=== PATIENT | female | born 1990 | race Caucasian/White ===

== ENCOUNTER 2018-02-16 13:45 | Day surgery (SDC) | payer OTHER ==
[~2018-02-16] VITALS: Ht 154.9 cm; Wt 59.9 kg
[~2018-02-16 13:45] MED LIST: ACHD5005 PO; CEPH500C PO; FERR324T4 PO; HYDR-3714 PO; IBP600T1 PO; NF-XOP-HFA IH; NITR100C3 PO; OMEP-10 PO; PREN-115 PO; ZLP5T PO
[2018-02-16 13:58] VITALS: BP 130/70
[2018-02-16] MEDS ORDERED: MISOPROSTOL 200 MCG (CYTOTEC) TABLET PV ONE (14:15)
[2018-02-16] MEDS ORDERED: LACTATED RINGERS 1,000 ML IV SCH (14:15)
[2018-02-16 14:19] LABS: BASOPHILS % (AUTO) 0 % (0-10); EOSINOPHILS # (AUTO) 0.1 10^3/uL (0.0-0.3); EOSINOPHILS % (AUTO) 1 % (0-10); HEMATOCRIT 42 % (35-52); HEMOGLOBIN 14.8 G/DL (11.5-16.0); LYMPHOCYTES # (AUTO) 1.8 X 10^3 (1.0-4.0); LYMPHOCYTES % (AUTO) 17 % (12-44); MEAN CORPUSCULAR HEMOGLOBIN 32 PG (25-34); MEAN CORPUSCULAR HGB CONC 36 G/DL (32-36); MEAN CORPUSCULAR VOLUME 91 FL (80-99); MONOCYTES # (AUTO) 0.6 X 10^3 (0.0-1.0); MONOCYTES % (AUTO) 6 % (0-12); NEUTROPHILS # (AUTO) 7.9 X 10^3 (1.8-7.8); NEUTROPHILS % (AUTO) 76 % (42-75); PLATELET COUNT 215 10^3/uL (130-400); RED BLOOD COUNT 4.58 10^6/uL (4.35-5.85); RED CELL DISTRIBUTION WIDTH 12.4 % (10.0-14.5); WHITE BLOOD COUNT 10.4 10^3/uL (4.3-11.0)
[2018-02-16] MEDS: morphine INJ 10 MG/ML 1ML (SYR OR VIAL) IVP PRN ×3 (14:23→20:58)
[2018-02-16 14:25] VITALS: BP 111/69
[2018-02-16 14:35] VITALS: BP 103/65
[2018-02-16] MEDS ORDERED: FLU QUADRIvalent (5+ YOA) 2018-2019 (AFLURIA) 0.5 ML IM ONE (15:00)
[2018-02-16] MEDS: cefTRIAXone FOR IV USE 1,000 MG in NS (IVPB) 50 ML IV SCH (15:03)
[2018-02-16 16:15] VITALS: BP 99/53
[2018-02-16] MEDS: ONDANSETRON 4 MG/2 ML (SDV) Z0FRAN IVP PRN ×2 (16:46→20:01)
[2018-02-16] MEDS: LACTATED RINGERS 1,000 ML IV SCH ×2 (16:49→21:01)
[2018-02-16] MEDS ORDERED: MISOPROSTOL 200 MCG (CYTOTEC) TABLET PV NR (18:15)
[2018-02-16 18:30] VITALS: BP 113/73
[2018-02-16] MEDS: KETOROLAC 30 MG/ML VIAL IVP PRN (20:06)
[2018-02-16 22:30] VITALS: BP 116/78
[2018-02-16] MEDS: MISOPROSTOL 100 MCG (CYTOTEC) TAB PV SCH (22:47)
[2018-02-17] VITALS (7 sets, daily range): BP systolic 92–122; BP diastolic 51–80
[2018-02-17] MEDS: LACTATED RINGERS 1,000 ML IV SCH ×4 (01:06→16:14)
[2018-02-17] MEDS: MISOPROSTOL 100 MCG (CYTOTEC) TAB PV SCH ×2 (03:01→14:06)
[2018-02-17] MEDS: KETOROLAC 30 MG/ML VIAL IVP PRN (07:53)
[2018-02-17] MEDS ORDERED: oxyCODONE/APAP 7.5-325 MG (PERCOCET 7.5) TABLET PO PRN (08:15)
--- NOTE | 2018-02-17 09:25 | Progress Note-Standard ---
Standard Progress Note Progress Notes/Assess & Plan Date Seen by a Provider: Feb 17, 2018 Time Seen by a Provider: 09:00 Progress/Assessment & Plan Patient has received several doses of cytotec. Has passed some tissue, but does not appear to be the fetus. she was feeling much better after passing the tissue but now is having severe cramps again. Pain is mainly over the bladder and low back, not unilateral. does not suggest an ectopic. did have decreased UO on admission but that has improved. Has received 1 dose of Rocephin IV (due to previously untreated UTI/ E coli). Rh + 02/16/18 02/17/18 02/17/18 22:30 02:30 05:40 Temp 97.7 98.2 98.3 Pulse 81 66 58 Resp 18 20 20 B/P (MAP) 116/78 (91) 105/61 (76) 99/55 (70) Pulse Ox 100 99 99 O2 Delivery Room Air Room Air Room Air 02/17/18 00:00 Intake Total 2300 ml Output Total 515 ml Balance 1785 ml Laboratory Tests Test 02/16/18 14:08 Range/Units White Blood Count 10.4 4.3-11.0 10^3/uL Red Blood Count 4.58 4.35-5.85 10^6/uL Hemoglobin 14.8 11.5-16.0 G/DL Hematocrit 42 35-52 % Mean Corpuscular Volume 91 80-99 FL Mean Corpuscular Hemoglobin 32 25-34 PG Mean Corpuscular Hemoglobin Concent 36 32-36 G/DL Red Cell Distribution Width 12.4 10.0-14.5 % Platelet Count 215 130-400 10^3/uL Mean Platelet Volume 11.0 H 7.4-10.4 FL Neutrophils (%) (Auto) 76 H 42-75 % Lymphocytes (%) (Auto) 17 12-44 % Monocytes (%) (Auto) 6 0-12 % Eosinophils (%) (Auto) 1 0-10 % Basophils (%) (Auto) 0 0-10 % Neutrophils # (Auto) 7.9 H 1.8-7.8 X 10^3 Lymphocytes # (Auto) 1.8 1.0-4.0 X 10^3 Monocytes # (Auto) 0.6 0.0-1.0 X 10^3 Eosinophils # (Auto) 0.1 0.0-0.3 10^3/uL Basophils # (Auto) 0.0 0.0-0.1 10^3/uL Assessment: 1. Incomplete AB - suspect she has completed, but due to the increase in cramping will obtain an US to check contents and rule out ectopic 2. UTI E Coli - h as received 1 dose of Rocephin. Will continue po pain meds but if evidence of incomplete passage of tissue or ectopic will discuss additional surgical options. She would like to avoid surgery if at all possible. JAE OLSON DO Feb 17, 2018 09:25
[2018-02-17] MEDS: morphine INJ 10 MG/ML 1ML (SYR OR VIAL) IVP PRN (11:32)
[2018-02-17] MEDS ORDERED: IBUPROFEN 600 MG (MOTRIN) TAB PO SCH (13:00)
--- NOTE | 2018-02-17 13:26 | Progress Note-Standard ---
Standard Progress Note Progress Notes/Assess & Plan Date Seen by a Provider: Feb 17, 2018 Time Seen by a Provider: 13:15 Progress/Assessment & Plan Patient has not completely passed tissue. US confirmed that there is still tissue inside. She has continued to have cramping. Have opted for additional oral treatment vs surgical and she now opts for surgical treatmentl Will proceed with suction dilation and curettage. Risks include bleeding, infection, injury to bowel, bladder and ureter. Has a UTI so Rocephin will be continued preoperatively for antibiotic coverage. Also Flagyl 500 mg IV x 1. Consent has been signed. 02/17/18 02/17/18 02/17/18 02:30 05:40 07:43 Temp 98.2 98.3 97.8 Pulse 66 58 72 Resp 20 20 16 B/P (MAP) 105/61 (76) 99/55 (70) 98/66 (77) Pulse Ox 99 99 98 O2 Delivery Room Air Room Air Room Air 02/17/18 00:00 Intake Total 2300 ml Output Total 515 ml Balance 1785 ml JAE OLSON DO Feb 17, 2018 13:26
[2018-02-17] MEDS ORDERED: DEXAMETHASONE 10 MG/ML (DECADRON) 1 ML VIAL ONE (13:29)
[2018-02-17] MEDS ORDERED: ONDANSETRON 4 MG/2 ML (SDV) Z0FRAN ONE (13:29)
[2018-02-17] MEDS ORDERED: proPOfol 200 MG/20 ML (DIPRIVAN) VIAL IV ONE (13:29)
[2018-02-17] MEDS ORDERED: LIDOCAINE PF 2% 2 ML (XYLOCAINE) VIAL ONE ×2 (13:29→13:34)
[2018-02-17] MEDS ORDERED: SEVOFLURANE (ULTANE) 15 ML INHAL SOLN ONE (13:29)
[2018-02-17] MEDS ORDERED: MIDAZOLAM 2 MG/2 ML (VERSED) VIAL ONE (13:30)
[2018-02-17] MEDS ORDERED: fentaNYL INJECTION 100 MCG/2 ML AMP ONE (13:30)
[2018-02-17] MEDS ORDERED: OXYC1TAB16 PO (13:40)
[2018-02-17] MEDS ORDERED: IBUP-1773 PO (13:40)
--- NOTE | 2018-02-17 13:41 | Discharge Inst-Women's Service ---
Discharge Inst-Women's Serv Depart Medication/Instructions New, Converted or Re-Newed RX: RX on Chart Final Diagnosis inevitable miscarriage UTI Consults/Follow Up Additional Follow Up: Yes Activity Activity: Activity as Tolerated Driving Instructions: No Driving for 24 Hours NO SMOKING: NO SMOKING Nothing Inside Vagina: No Douching, No [place], No Tampons Diet Discharge Diet: No Restrictions Symptoms to Report to : Bleeding Excessive, Pain Increased, Fever Over 101 Degrees F, Vaginal Bleeding Increase, Cramps in Feet or Legs For Any Problems or Questions: Contact Your Physician JAE OLSON DO Feb 17, 2018 13:41
[2018-02-17] MEDS ORDERED: metroNIDAZOLE 500MG/100ML IVPB 100 ML IV ONE (13:45)
[2018-02-17] MEDS: cefTRIAXone FOR IV USE 1,000 MG in NS (IVPB) 50 ML IV SCH (13:50)
[2018-02-17] MEDS ORDERED: ROCURONIUM 10 MG/ML 5 ML SYRINGE IV ONE (13:50)
[2018-02-17] MEDS ORDERED: SUCCINYLCHOLINE INJ 100 MG/5 ML SYR ONE (13:50)
[2018-02-17] MEDS ORDERED: metroNIDAZOLE 500MG/100ML IVPB 100 ML ONE (13:56)
[2018-02-17] MEDS ORDERED: diphenhydrAMINE 50 MG/ML INJ (BENADRYL) ONE (13:59)
--- NOTE | 2018-02-17 14:14 | Diagnostic Imaging Report ---
INDICATION: Bleeding and cramping with incomplete TECHNIQUE: Multiple real time canales scale sonographic images were obtained of the pelvis endovaginally. CORRELATION STUDY: None FINDINGS: Uterus 12.0 x 5.8 cm. The fundal aspect of the endometrium appearing unremarkable at 8 mm in thickness. There is an irregular fluid collection at the lower uterine segment and/or most notably at the level of the cervix. There is suggestion of a probable pole this likely reflects a gestational sac. No heart tones are detected. Imaging of the adnexa is fairly limited. What appears to be the right ovary measures approximately 3.2 x 1.9 x 3.7 cm. Left ovary not able to be visualized. IMPRESSION: 1.Findings most consistent with a incomplete with gestational sac and pole at the level of the cervix. No heart tones detected. Findings were relayed by the confidential investigator at time of imaging. Dictated by: Dictated on workstation # [id number]
[2018-02-17] MEDS ORDERED: ONDANSETRON 4 MG/2 ML (SDV) Z0FRAN IVP PRN (14:45)
[2018-02-17] MEDS ORDERED: morphine INJ 10 MG/ML 1ML (SYR OR VIAL) IVP ONE (14:45)
[2018-02-17] MEDS ORDERED: MEPERIDINE (DEMEROL) INJ 50 MG/ML IVP ONE ×2 (14:45→15:15)
--- NOTE | 2018-02-17 15:24 | Anesthesia-General Post-Op ---
General Patient Condition Mental Status/LOC: Same as Preop Cardiovascular: Satisfactory Nausea/Vomiting: Absent Respiratory: Satisfactory Pain: Controlled Complications: Absent Post Op Complications Complications Demerol for shivering ordered in recovery with relief. Follow Up Care/Instructions Patient Instructions None needed. Anesthesia/Patient Condition Patient Condition Patient is doing well, no complaints, stable vital signs, no apparent adverse anesthesia problems. No complications reported per nursing. D/C home per [facility] Criteria: Yes GABRIEL MARTIN CRNA Feb 17, 2018 15:24
[2018-02-17] MEDS ORDERED: CHLORASEPTIC LOZENGE MM ONE ×2 (19:13→20:45)
--- NOTE | 2018-02-18 11:18 | Anesthesia-General Post-Op ---
General Patient Condition Mental Status/LOC: Same as Preop Cardiovascular: Satisfactory Nausea/Vomiting: Absent Respiratory: Satisfactory Pain: Controlled Complications: Absent Post Op Complications Complications None Follow Up Care/Instructions Patient Instructions None needed. Anesthesia/Patient Condition Patient Condition Patient is doing well, no complaints, stable vital signs, no apparent adverse anesthesia problems. No complications reported per nursing. D/C home per [facility] Criteria: Yes MATT PULIDO CRNA Feb 18, 2018 11:18
--- NOTE | 2018-03-04 15:01 | Operative Report ---
Operative Report Date of Procedure/Surgery Feb 17, 2018 Surgeon (s) JAE OLSON DO [employer] Radio Technician (s): NA Post-Operative Diagnosis Incomplete AB Procedure Performed suction dilation and curettage Description of Procedure Anesthesia Type: General Estimated blood loss (mL): 200 Specimen(s) collected/removed products of conception Description of the Procedure With informed consent the patient was taken to the operating room where general anesthesia was found to be adequate. She was prepped and draped in the usual sterile fashion in the dorsal lithotomy position. The bladder was drained of clear yellow urine. The speculum was placed in the vagina and the cervix grasped with a tenaculum. The cervix was still closed with some blood in the vault but not tissue. The cervix was gently dilated and I noted a gush of clear fluid (consistent with what was seen on the US). I then gently dilated the cervix with Hugo dilators. I did a gentle suction curette removing a moderate amount of products of conception and blood clots. I then followed this with a sharp curette until a gritty texture was felt. There was good hemostasis I removed the tenaculum from the cervix and controlled the bleeding with a ring forceps. The patient was awakened and taken to recovery in a stable condition. Sponge and instrument counts were correct times two. Findings of the Procedure Failed conservative treatment with misoprostol. Has not passed tissue and the Follow up US still shows that there is a large fluid filled sac in the cervix and tissue. Allergies and Home Medications Allergies Coded Allergies: No Known Drug Allergies (Unverified , 04/15/13) Home Medications Ferrous Sulfate 324 Mg Tablet., 324 MG PO DAILY, (Reported) Ibuprofen 600 Mg Tablet, 600 MG PO Q6H PRN for PAIN Prescribed by: JAE OLSON on 02/17/18 1340 Levalbuterol Tartrate 15 Gm Aer.w.adap, 15 GM IH QID PRN for SHORTNESS OF BREATH Prescribed by: KEY FRENCH on 04/15/13 1709 Omeprazole 20 Mg Capsule., 20 MG PO DAILY, (Reported) Oxycodone HCl/Acetaminophen 1 Each Tablet, 1 EACH PO Q6HR PRN for PAIN-MODERATE Prescribed by: JAE OLSON on 02/17/18 1340 Vit #108/Iron/Fa 1 Each Tablet, 1 EACH PO DAILY, (Reported) Patient Home Medication List Home Medication List Reviewed: Yes JAE OLSON DO Mar 04, 2018 15:01
== END 2018-02-17 19:55 | disposition home or self-care (01) ==
LOC: SDC 13:45 → MERGE 13:45 → WS 13:45 → UNDOADMIN 13:45 → EDSTATUS 02-17 13:30 → UNDODISIN 02-17 19:55 → SDC 02-17 19:55
PROVIDERS: ATTEND Obstetrics & Gynecology
DX: O03.38 Urinary tract infection following incomplete spontaneous abortion (principal); B96.20 Unspecified Escherichia coli [E. coli] as the cause of diseases classified elsewhere; J45.909 Unspecified asthma, uncomplicated
CPT/HCPCS: 36415; 76817; 85025; 88305

== ENCOUNTER 2018-05-07 12:40 | Outpatient (CLI) | payer MEDICAID ==
[~2018-05-07] VITALS: Ht 154.9 cm; Wt 70.3 kg
[~2018-05-07 12:40] MED LIST changes: +IBUP-1773 PO; +OXYC1TAB16 PO
[2018-05-08] MEDS ORDERED: ACHD5005 PO (15:31)
[2018-05-08] MEDS ORDERED: INUL2TAB8 PO (15:31)
[2018-05-08] MEDS ORDERED: LIDO30CR TP (15:31)
[2018-05-08] MEDS ORDERED: IBUP-844 PO (15:31)
[2018-05-08] MEDS ORDERED: DOCU-143 PO (15:31)
== END 2018-05-07 12:55 | disposition home or self-care (01) ==
LOC: PREOP 12:40
PROVIDERS: ATTEND Obstetrics & Gynecology
DX: Z01.818 Encounter for other preprocedural examination (principal)

== ENCOUNTER 2018-05-08 13:00 | Day surgery (SDC) | payer MEDICAID ==
[~2018-05-08] VITALS: Ht 154.9 cm; Wt 63.5 kg
[~2018-05-08 13:00] MED LIST changes: +LACTATED RINGERS 1,000 ML IV PRN
[2018-05-08 13:15] VITALS: BP 106/79
[2018-05-08] MEDS ORDERED: ceFAZolin INJECTION 1,000 MG in NS (IVPB) 50 ML IV ONE (13:30)
[2018-05-08] MEDS ORDERED: MIDAZOLAM 2 MG/2 ML (VERSED) VIAL IV ONE (13:30)
[2018-05-08] MEDS ORDERED: SCOPOLAMINE 1.5 MG (TRANSDERM-SCOP) PATCH TOP ONE (13:30)
[2018-05-08] MEDS ORDERED: ONDANSETRON 4 MG/2 ML (SDV) Z0FRAN IV ONE (13:30)
[2018-05-08] MEDS ORDERED: metroNIDAZOLE 500MG/100ML IVPB 100 ML IV ONE (13:30)
[2018-05-08] MEDS ORDERED: FAMOTIDINE 20MG/2ML IV (PEPCID) IV ONE (13:30)
[2018-05-08] MEDS ORDERED: proPOfol 200 MG/20 ML (DIPRIVAN) VIAL IV ONE (13:48)
[2018-05-08] MEDS ORDERED: LIDOCAINE PF 2% 5 ML (XYLOCAINE) VIAL ONE (13:48)
[2018-05-08] MEDS ORDERED: fentaNYL INJECTION 100 MCG/2 ML AMP ONE (13:49)
[2018-05-08 13:50] LABS: BASOPHILS % (AUTO) 0 % (0-10); EOSINOPHILS # (AUTO) 0.1 10^3/uL (0.0-0.3); EOSINOPHILS % (AUTO) 1 % (0-10); HEMATOCRIT 42 % (35-52); HEMOGLOBIN 14.6 G/DL (11.5-16.0); LYMPHOCYTES # (AUTO) 1.7 X 10^3 (1.0-4.0); LYMPHOCYTES % (AUTO) 15 % (12-44); MEAN CORPUSCULAR HEMOGLOBIN 32 PG (25-34); MEAN CORPUSCULAR HGB CONC 35 G/DL (32-36); MEAN CORPUSCULAR VOLUME 91 FL (80-99); MEAN PLATELET VOLUME 11.8 FL (7.4-10.4); MONOCYTES # (AUTO) 0.7 X 10^3 (0.0-1.0); MONOCYTES % (AUTO) 7 % (0-12); NEUTROPHILS # (AUTO) 8.8 X 10^3 (1.8-7.8); NEUTROPHILS % (AUTO) 78 % (42-75); PLATELET COUNT 214 10^3/uL (130-400); RED BLOOD COUNT 4.59 10^6/uL (4.35-5.85); RED CELL DISTRIBUTION WIDTH 12.2 % (10.0-14.5); WHITE BLOOD COUNT 11.3 10^3/uL (4.3-11.0)
[2018-05-08] MEDS ORDERED: SEVOFLURANE (ULTANE) 15 ML INHAL SOLN ONE ×3 (13:50→15:05)
[2018-05-08] MEDS ORDERED: DEXAMETHASONE 10 MG/ML (DECADRON) 1 ML VIAL ONE (13:50)
[2018-05-08] MEDS ORDERED: ONDANSETRON 4 MG/2 ML (SDV) Z0FRAN ONE (13:50)
[2018-05-08] MEDS ORDERED: SUCCINYLCHOLINE INJ 100 MG/5 ML SYR ONE (13:50)
[2018-05-08] MEDS ORDERED: KETOROLAC 30 MG/ML VIAL ONE (14:35)
--- NOTE | 2018-05-08 14:45 | Progress Note-Pre Operative ---
Pre-Operative Progress Note H&P Reviewed The H&P was reviewed, patient examined and no changes noted. Date Seen by Provider: May 08, 2018 Time Seen by Provider: 13:45 Date H&P Reviewed: May 08, 2018 Time H&P Reviewed: 13:30 Pre-Operative Diagnosis: missed JAE OLSON DO May 08, 2018 14:45
[2018-05-08] MEDS ORDERED: HYDROcodone/APAP 5 MG/325 MG (LORTAB) TAB PO PRN (15:15)
[2018-05-08] MEDS ORDERED: KETOROLAC 30 MG/ML VIAL IVP PRN (15:15)
--- NOTE | 2018-05-08 15:22 | Operative Report ---
Operative Report Date of Procedure/Surgery May 08, 2018 Surgeon (s) JAE OLSON DO Web Knitter (s): NA Post-Operative Diagnosis Missed anal fissure (acute?) mucoid rectal discharge Procedure Performed Suction dilation and curettage Description of Procedure Anesthesia Type: General Estimated blood loss (mL): minimal Specimen(s) collected/removed products of conception Description of the Procedure With informed consent the patient was taken to the operating room where general anesthesia was found to be adequate. She was prepped and draped in the usual sterile fashion in the dorsal lithotomy position. The bladder was drained of clear yellow urine. The speculum was placed in the vagina and the cervix grasped with a tenaculum. The cervix was still closed with some blood in the vault but not tissue. The cervix was gently dilated and I noted a gush of clear fluid (consistent with what was seen on the US). I then gently dilated the cervix with Hugo dilators. I did a gentle suction curette removing a moderate amount of products of conception and blood clots. I then followed this with a sharp curette until a gritty texture was felt. There was good hemostasis I removed the tenaculum from the cervix and controlled the bleeding with a ring forceps. The patient was awakened and taken to recovery in a stable condition. Sponge and instrument counts were correct times two. At the time of surgical prep, there was an acute fissure at 2 o'clock on the anal opening. There was mucus discharge noted from the anus. There is no history of Crohn's' or other inflammatory bowel disease. I spoke with the after surgery and he states that she had not complained about the fissure nor any change in bowel habits. Will treat the fissure conservatively with pain management (topical anesthetic) fiber, stool softener. Refer to GI if necessary. Findings of the Procedure moderate amounts of products of conception mucoid discharge from anus and acute anal fissure Allergies and Home Medications Allergies Coded Allergies: No Known Drug Allergies (Unverified , 04/15/13) Home Medications Docusate Sodium 100 Mg Capsule, 60 MG PO BID Prescribed by: JAE OLSON on 05/08/18 1531 Hydrocodone Bit/Acetaminophen 1 Tab Tab, 1 TAB PO Q4H PRN for PAIN-MODERATE Prescribed by: JAE OLSON on 05/08/18 1531 Ibuprofen 600 Mg Tablet, 600 MG PO Q6HR Prescribed by: JAE OLSON on 05/08/18 1531 Inulin 2 Gm Tab.chew, 2 GM PO BID Prescribed by: JAE OLSON on 05/08/18 1531 Lidocaine 30 Gm Cream..g., 30 GM TP 5XD PRN for pain Prescribed by: JAE OLSON on 05/08/18 1531 Patient Home Medication List Home Medication List Reviewed: Yes JAE OLSON DO May 08, 2018 15:22
[2018-05-08] MEDS ORDERED: morphine INJ 10 MG/ML 1ML (SYR OR VIAL) IVP ONE (15:30)
[2018-05-08] MEDS ORDERED: PROMETHAZINE INJ 25 MG/ML (PHENERGAN) AMP IVP ONE (15:30)
[2018-05-08] MEDS ORDERED: ONDANSETRON 4 MG/2 ML (SDV) Z0FRAN IVP PRN (15:30)
[2018-05-08] MEDS ORDERED: HYDROmorphone 2 MG/ML VIAL (DILAUDID) IV ONE (15:30)
[2018-05-08] MEDS ORDERED: MEPERIDINE (DEMEROL) INJ 50 MG/ML IVP ONE (15:30)
[2018-05-08] MEDS ORDERED: IBUP-844 PO (15:31)
[2018-05-08] MEDS ORDERED: LIDO30CR TP (15:31)
[2018-05-08] MEDS ORDERED: DOCU-143 PO (15:31)
[2018-05-08] MEDS ORDERED: INUL2TAB8 PO (15:31)
[2018-05-08] MEDS ORDERED: ACHD5005 PO (15:31)
--- NOTE | 2018-05-08 15:34 | Discharge Inst-Women's Service ---
Discharge Inst-Women's Serv Depart Medication/Instructions New, Converted or Re-Newed RX: Other (On chart and transmitted to pharmacy ( some are OTC)) Instructions Sitz baths (for the anal fissure), increase fiber intake, keep stools soft; use topical lidocaine cream for pain expect to have vaginal bleeding for 7-10 days Final Diagnosis missed (miscarriage) anal fissure acute Consults/Follow Up Additional Follow Up: Yes (4 weeks) Activity Activity: Activity as Tolerated Driving Instructions: No Driving for 24 Hours NO SMOKING: NO SMOKING Nothing Inside Vagina: No Douching, No [place], No Tampons Diet Discharge Diet: No Restrictions, Other Diet (high fiber) Symptoms to Report to : Bleeding Excessive, Pain Increased, Fever Over 101 Degrees F, Vaginal Bleeding Increase, Vaginal Discharge Foul For Any Problems or Questions: Contact Your Physician JAE OLSON DO May 08, 2018 15:34
--- NOTE | 2018-05-08 15:34 | Anesthesia-General Post-Op ---
General Patient Condition Mental Status/LOC: Same as Preop Cardiovascular: Satisfactory Nausea/Vomiting: Absent Respiratory: Satisfactory Pain: Controlled Complications: Absent Post Op Complications Complications None Follow Up Care/Instructions Patient Instructions None needed. Anesthesia/Patient Condition Patient Condition Patient is doing well, no complaints, stable vital signs, no apparent adverse anesthesia problems. No complications reported per nursing. RYLIE CARTER CRNA May 08, 2018 15:34
[2018-05-08 16:00] VITALS: BP 114/81
[2018-05-08] MEDS ORDERED: BENZOCAINE/MENTHOL (DERMOPLAST) 56 ML CAN TP PRN (16:00)
[2018-05-08 16:30] VITALS: BP 107/71
[2018-05-08 17:00] VITALS: BP 102/66
[2018-05-09] MEDS ORDERED: IBUPROFEN 600 MG (MOTRIN) TAB PO SCH (18:00)
== END 2018-05-08 17:00 | disposition home or self-care (01) ==
LOC: SDC 13:00
PROVIDERS: ATTEND Obstetrics & Gynecology
DX: O02.1 Missed abortion (principal); K60.2 Anal fissure, unspecified; J45.909 Unspecified asthma, uncomplicated; K21.9 Gastro-esophageal reflux disease without esophagitis; Z79.899 Other long term (current) drug therapy
CPT/HCPCS: 36415; 85025; 86850; 86900; 86901; 87081; 88305; 94664

== ENCOUNTER 2018-08-05 18:24 | Emergency (ER) | payer MEDICAID ==
[~2018-08-05] VITALS: Ht 154.9 cm; Wt 61.2 kg
[~2018-08-05 18:24] MED LIST changes: +DOCU-143 PO; +IBUP-844 PO; +INUL2TAB8 PO; -LACTATED RINGERS 1,000 ML IV PRN; +LIDO30CR TP
[2018-08-05] MEDS ORDERED: NS IV 1000 ML 1,000 ML IV STA (18:38)
--- NOTE | 2018-08-05 18:44 | ED GI ---
General Chief Complaint: Abdominal/GI Problems Stated Complaint: WEAK,LIGHT HEADED, ST PAIN, BLOODY STOOLS History of Present Illness Date Seen by Provider: Aug 05, 2018 Time Seen by Provider: 18:29 This is a 28-year-old female who complains of waxing and waning periumbilical abdominal pain for the last 5 days. She says that multiple people at her workplace have been suffering from "a stomach bug" and she has had some nausea and significantly increased frequency of stools over baseline, with stools being soft but not strictly watery. She has had some blood mixed in with the stool in the last couple of days with some mucoid discharge as well. No travel, antibiotics or hospitalizations in the last 2 months, no exposure to farm animals, works in an office setting. No fever or chills. Has taken an occasional dose of Pepto-Bismol without significant relief. History of 2 C- sections. Last menstrual period one to 2 weeks ago. Normal urination, no vaginal bleeding or discharge. Allergies and Home Medications Allergies Coded Allergies: No Known Drug Allergies (Unverified , 08/05/18) Home Medications Docusate Sodium 100 Mg Capsule, 60 MG PO BID Prescribed by: JAE OLSON on 05/08/18 1531 Hydrocodone Bit/Acetaminophen 1 Tab Tab, 1 TAB PO Q4H PRN for PAIN-MODERATE Prescribed by: JAE OLSON on 05/08/18 1531 Ibuprofen 600 Mg Tablet, 600 MG PO Q6HR Prescribed by: JAE OLSON on 05/08/18 1531 Inulin 2 Gm Tab.chew, 2 GM PO BID Prescribed by: JAE OLSON on 05/08/18 1531 Lidocaine 30 Gm Cream..g., 30 GM TP 5XD PRN for pain Prescribed by: JAE OLSON on 05/08/18 153 Nitrofurantoin Macrocrystal 100 Mg Capsule, 100 MG PO BID Prescribed by: RAKAN FRENCH on 08/05/182121 Ondansetron 8 Mg Tab.rapdis, 8 MG PO TID PRN for NAUSEA/VOMITING Prescribed by: RAKAN FRENCH on 08/05/182121 Patient Home Medication List Home Medication List Reviewed: Yes Review of Systems Review of Systems Constitutional: no symptoms reported EENTM: No Symptoms Reported Respiratory: No Symptoms Reported Cardiovascular: No Symptoms Reported Gastrointestinal: See HPI Genitourinary: No Symptoms Reported Musculoskeletal: no symptoms reported Skin: no symptoms reported Psychiatric/Neurological: No Symptoms Reported Endocrine: No Symptoms Reported Hematologic/Lymphatic: No Symptoms Reported Past Mrcgaek-Opneey-Mfnzum Hx Patient Social History Alcohol Beverage of Choice: Wine Recent Foreign Travel: No Contact w/Someone Who Travel: No Recent Hopitalizations: No Immunizations Up To Date Tetanus Booster (TDap): Unknown PED Vaccines UTD: Yes Seasonal Allergies Seasonal Allergies: Yes Past Medical History Surgeries: Yes (C-SECTIONS X2) Respiratory: Yes Asthma Currently Using CPAP: No Currently Using BIPAP: No Cardiac: No Neurological: Yes (SINCE AGE 17) Headaches /Migraines Reproductive Disorders: No Female Reproductive Disorders: Denies Sexually Transmitted Disease: No HIV/AIDS: No Genitourinary: Yes Kidney Infection Gastrointestinal: No Gastroesophageal Reflux Musculoskeletal: No Endocrine: No HEENT: No (PERFORATED EAR DRUM A KID) Loss of Vision: Denies Hearing Impairment: Denies Cancer: No Psychosocial: Yes (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) PTSD Integumentary: No Blood Disorders: No (HX OF ANEMIA) Adverse Reaction/Blood Tranf: No Family Medical History Alcoholism 03 MOTHER 19 MOTHER Alcoholism 03 MOTHER 19 MOTHER Arthritis 19 MOTHER (RA) FH: depression 19 MOTHER FH: liver disease 19 MOTHER Family history: Arthritis 03 MOTHER Family history: Asthma 03 MOTHER Family history: Hypertension 03 MOTHER Family history: Osteoporosis 03 MOTHER Headache 03 MOTHER Hearing loss 03 MOTHER History of - anemia 03 MOTHER Hypercholesterolemia 03 MOTHER Osteoporosis 19 MOTHER Psychotic disorder 03 MOTHER, Onset:40's - 50 No Family History of: Abdominal aortic aneurysm [place]'s disease Aphasia Cancer Cancer of colon Cataract Chest pain Congenital heart disease Congestive heart failure Cystic fibrosis Dementia Dysphagia Family history: Allergy Family history: Alzheimer's disease Family history: Breast disease Family history: Cardiovascular disease Family history: Coronary thrombosis Family history: Diabetes mellitus Family history: Gastrointestinal disease Family history: Glaucoma Family history: Thyroid disorder Heart disease Hereditary disease History of - disorder History of - respiratory disease History of drug abuse Human immunodeficiency virus (HIV) seropositivity Infertile Kidney disease Malignant neoplasm of lung Myocardial infarction Parkinson's disease Prostate cancer Seizure disorder Stroke Tuberculosis Visual impairment No Pertinent Family Hx Physical Exam Vital Signs Vital Signs - First Documented 08/05/18 18:33 Temp 98.3 Pulse 116 Resp 18 B/P (MAP) 135/87 (103) Pulse Ox 98 Capillary Refill : Height/Weight/BMI Height: 5'1.00" Weight: 140lbs. 0.0oz. [id number]; 26.5 BMI Method: General Appearance: no apparent distress (no visible discomfort) HEENT: other (no conjunctival injection or scleral icterus, moist mucous membranes) Respiratory: lungs clear Cardiovascular: normal peripheral pulses, regular rate, rhythm Gastrointestinal: soft, other (normal bowel sounds, soft, nondistended, minimal diffuse tenderness without rebound rigidity or guarding) Extremities: no pedal edema Neurologic/Psychiatric: alert, normal mood/affect, oriented x 3 Skin: warm/dry Progress/Results/Core Measures Results/Orders Lab Results Laboratory Tests Test 08/05/18 18:39 08/05/18 18:50 Range/Units Urine Color YELLOW Urine Clarity CLOUDY Urine pH 6.5 5-9 Urine Specific [place] 1.010 L 1.016-1.022 Urine Protein TRACE NEGATIVE Urine Glucose (UA) NEGATIVE NEGATIVE Urine Ketones NEGATIVE NEGATIVE Urine Nitrite POSITIVE H NEGATIVE Urine Bilirubin NEGATIVE NEGATIVE Urine Urobilinogen 0.2 NORMAL MG/DL Urine Leukocyte Esterase 2+ H NEGATIVE Urine RBC (Auto) 2+ H NEGATIVE Urine RBC 2+5 /HPF Urine WBC 25-50 H /HPF Urine Squamous Epithelial Cells 2-5 /HPF Urine Crystals NONE /LPF Urine Bacteria LARGE H /HPF Urine Casts NONE /LPF Urine Mucus NEGATIVE /LPF Urine Culture Indicated CULTURE PENDING Urine Test NEGATIVE NEGATIVE White Blood Count 11.5 H 4.3-11.0 10^3/uL Red Blood Count 4.25 L 4.35-5.85 10^6/uL Hemoglobin 13.0 11.5-16.0 G/DL Hematocrit 40 35-52 % Mean Corpuscular Volume 94 80-99 FL Mean Corpuscular Hemoglobin 31 25-34 PG Mean Corpuscular Hemoglobin Concent 33 32-36 G/DL Red Cell Distribution Width 12.1 10.0-14.5 % Platelet Count 272 130-400 10^3/uL Mean Platelet Volume 10.7 H 7.4-10.4 FL Neutrophils (%) (Auto) 72 42-75 % Lymphocytes (%) (Auto) 15 12-44 % Monocytes (%) (Auto) 8 0-12 % Eosinophils (%) (Auto) 5 0-10 % Basophils (%) (Auto) 1 0-10 % Neutrophils # (Auto) 8.3 H 1.8-7.8 X 10^3 Lymphocytes # (Auto) 1.7 1.0-4.0 X 10^3 Monocytes # (Auto) 0.9 0.0-1.0 X 10^3 Eosinophils # (Auto) 0.6 H 0.0-0.3 10^3/uL Basophils # (Auto) 0.1 0.0-0.1 10^3/uL Sodium Level 142 135-145 MMOL/L Potassium Level 3.9 3.6-5.0 MMOL/L Chloride Level 106 98-107 MMOL/L Carbon Dioxide Level 24 21-32 MMOL/L Anion Gap 12 5-14 MMOL/L Blood Urea Nitrogen 8 7-18 MG/DL Creatinine 0.66 0.60-1.30 MG/DL Estimat Glomerular Filtration Rate > 60 BUN/Creatinine Ratio 12 Glucose Level 83 70-105 MG/DL Calcium Level 9.0 8.5-10.1 MG/DL Corrected Calcium 8.9 8.5-10.1 MG/DL Total Bilirubin 0.2 0.1-1.0 MG/DL Aspartate Amino Transf (AST/SGOT) 14 5-34 U/L Alanine Aminotransferase (ALT/SGPT) 10 0-55 U/L Alkaline Phosphatase 54 40-136 U/L Total Protein 6.7 6.4-8.2 GM/DL Albumin 4.1 3.2-4.5 GM/DL Lipase 938 H 8-78 U/L My Orders Orders - GILLIAN,RAKAN T DO Urinalysis Dipstick Only (08/05/18 18:31) Urine Culture (08/05/18 18:31) Hcg,Qualitative Urine (08/05/18 18:31) Cbc With Automated Diff (08/05/18 18:38) Comprehensive Metabolic Panel (08/05/18 18:38) Lipase (08/05/18 18:38) Ns Iv 1000 Ml (Sodium Chloride 0.9%) (08/05/18 18:38) Stool Culture (08/05/18 20:04) C Difficile Ag + Toxin A/B. (08/05/18 20:04) Isolation Central Supply Req (08/05/18 20:04) Urinalysis (08/05/18 20:11) Vital Signs/I&O 08/05/18 18:33 Temp 98.3 Pulse 116 Resp 18 B/P (MAP) 135/87 (103) Pulse Ox 98 Progress Progress Note #1: Progress Note Viral etiology of nausea and diarrhea is most likely. Patient is low risk for bacterial etiology. Abdominal exam is benign. There have been no high fevers. We'll check labs including hemoglobin, electrolytes, LFTs, lipase. We'll treat with a fluid bolus. Patient will require follow-up with gastroenterology given any component of rectal bleeding although it is currently described as low volume and admission for GI consult, assuming labs are unremarkable, is not indicated. Progress Note #2: Progress Note Patient is feeling well and would like to go home. Note made of evidence of urinary tract infection, patient denies dysuria, frequency, she denies back pain , she has had frequent UTIs however, including pyelonephritis. I spoke with patient and family at length about risk of treating bloody diarrhea with antibiotics, we discussed HUS. We discussed that there is a lack of great evidence regarding treatment of bloody diarrhea in adults with antibiotics, my literature review suggest the fluoroquinolones and trimethoprim have a stronger association with development of HUS, a short course of nitrofurantoin for patient's urinary tract infection may be a reasonable choice. Repeat abdominal exam remains benign. I also discussed with her her elevated lipase however there is no obstructive pattern on LFTs and the overall syndrome is not consistent with acute pancreatitis, no significant epigastric tenderness for example. For now I have recommended tylenol for analgesia, and pepto-bismol for diarrhea, which she has already been taking but she can likely dose more frequently as per instructions on bottle. She was unable to provide a stool specimen in the ED, there was a small specimen that was contaminated with urine and had 3 small mucoid and bloody spots. She was advised to follow-up with her primary care doctor tomorrow. She will return for any concerning change in her condition including increased abdominal pain, increased bleeding, development of fever, or inability to tolerate oral intake. Departure Impression Primary Impression: Bloody diarrhea Additional Impressions: Acute cystitis Elevated lipase Disposition: HOME, SELF-CARE Condition: Stable Departure-Patient Inst. Referrals: NO,LOCAL PHYSICIAN (PCP) Primary Care Physician Patient Instructions: Diarrhea in Adolescents and Adults Scripts Ondansetron (Ondansetron Odt) 8 Mg Tab.rapdis 8 MG PO TID PRN for NAUSEA/VOMITING for 7 Days, #20 TAB Prov: RAKAN FRENCH DO 08/05/18 Nitrofurantoin Macrocrystal (Nitrofurantoin) 100 Mg Capsule 100 MG PO BID for 3 Days, #6 CAP 0 Refills Prov: RAKAN FRENCH DO 08/05/18 RAKAN FRENCH DO Aug 05, 2018 18:44
[2018-08-05 18:56] LABS: BILIRUBIN,URINE NEGATIVE (NEGATIVE); CLARITY,URINE CLOUDY; COLOR,URINE YELLOW; GLUCOSE, URINE (UA) NEGATIVE (NEGATIVE); HCG,QUALITATIVE URINE NEGATIVE (NEGATIVE); KETONES,URINE NEGATIVE (NEGATIVE); LEUKOCYTE ESTERASE ,URINE 2+ (NEGATIVE); NITRITE,URINE POSITIVE (NEGATIVE); PH,URINE 6.5 (5-9); PROTEIN,URINE TRACE (NEGATIVE); UROBILINOGEN,URINE 0.2 MG/DL (NORMAL)
[2018-08-05 19:03] LABS: HEMATOCRIT 40 % (35-52); MEAN CORPUSCULAR HEMOGLOBIN 31 PG (25-34); WHITE BLOOD COUNT 11.5 10^3/uL (4.3-11.0)
[2018-08-05 19:04] LABS: BASOPHILS # (AUTO) 0.1 10^3/uL (0.0-0.1); BASOPHILS % (AUTO) 1 % (0-10); EOSINOPHILS # (AUTO) 0.6 10^3/uL (0.0-0.3); EOSINOPHILS % (AUTO) 5 % (0-10); LYMPHOCYTES # (AUTO) 1.7 X 10^3 (1.0-4.0); LYMPHOCYTES % (AUTO) 15 % (12-44); MEAN CORPUSCULAR HGB CONC 33 G/DL (32-36); MEAN CORPUSCULAR VOLUME 94 FL (80-99); MEAN PLATELET VOLUME 10.7 FL (7.4-10.4); MONOCYTES # (AUTO) 0.9 X 10^3 (0.0-1.0); MONOCYTES % (AUTO) 8 % (0-12); NEUTROPHILS # (AUTO) 8.3 X 10^3 (1.8-7.8); NEUTROPHILS % (AUTO) 72 % (42-75); PLATELET COUNT 272 10^3/uL (130-400); RED CELL DISTRIBUTION WIDTH 12.1 % (10.0-14.5)
[2018-08-05 20:18] LABS: CLARITY,URINE CLOUDY; COLOR,URINE YELLOW; GLUCOSE, URINE (UA) NEGATIVE (NEGATIVE); PH,URINE 6.5 (5-9); PROTEIN,URINE TRACE (NEGATIVE)
[2018-08-05 20:19] LABS: BACTERIA,URINE LARGE /HPF; BILIRUBIN,URINE NEGATIVE (NEGATIVE); KETONES,URINE NEGATIVE (NEGATIVE); LEUKOCYTE ESTERASE ,URINE 2+ (NEGATIVE); NITRITE,URINE POSITIVE (NEGATIVE); RBC,URINE 2+5 /HPF; UROBILINOGEN,URINE 0.2 MG/DL (NORMAL); WBC,URINE 25-50 /HPF
[2018-08-05 20:59] LABS: ALKALINE PHOSPHATASE 54 U/L (40-136); BILIRUBIN,TOTAL 0.2 MG/DL (0.1-1.0); BUN/CREATININE RATIO 12; CARBON DIOXIDE 24 MMOL/L (21-32); CHLORIDE 106 MMOL/L (98-107); CREATININE SERUM 0.66 MG/DL (0.60-1.30); GFR ESTIMATED > 60; GLUCOSE 83 MG/DL (70-105); POTASSIUM 3.9 MMOL/L (3.6-5.0); SODIUM 142 MMOL/L (135-145)
[2018-08-05 21:00] LABS: ALANINE AMINOTRANSFERASE 10 U/L (0-55); ALBUMIN 4.1 GM/DL (3.2-4.5); LIPASE 938 U/L (8-78); TOTAL PROTEIN 6.7 GM/DL (6.4-8.2)
[2018-08-05] MEDS ORDERED: NITR100C PO (21:22)
[2018-08-05] MEDS ORDERED: ONDA8TAB13 PO (21:22)
[2018-08-05 21:27] VITALS: BP 119/68
== END 2018-08-05 21:27 | disposition home or self-care (01) ==
LOC: EDUNIT# 18:24 → ER FS 18:27
DX: N30.00 Acute cystitis without hematuria (principal); R74.8 Abnormal levels of other serum enzymes; R19.7 Diarrhea, unspecified; J45.909 Unspecified asthma, uncomplicated; K21.9 Gastro-esophageal reflux disease without esophagitis; F43.10 Post-traumatic stress disorder, unspecified; G43.909 Migraine, unspecified, not intractable, without status migrainosus; Z87.820 Personal history of traumatic brain injury; Z87.448 Personal history of other diseases of urinary system; Z98.890 Other specified postprocedural states; Z82.49 Family history of ischemic heart disease and other diseases of the circulatory system
CPT/HCPCS: 36415; 80053; 81000; 81002; 83690; 84703; 85025; 87088

== ENCOUNTER → 2018-08-13 | Outpatient (CLI) | payer MEDICAID ==
[~2018-08-13] MED LIST changes: +CATHETER FLUSH 10 ML SYR IV PRN; +HOLD METFORMIN - RECEIVED CONTRAST 20 ML VIAL IV SCH; +IOHEXOL 350 MG/ML 100 ML (OMNIPAQUE 350) VIAL IV ONE; +NITR100C PO; +NS 100 ML (IVPB) BAG IV ONE; +ONDA8TAB13 PO
--- NOTE | 2018-08-13 16:50 | Diagnostic Imaging Report ---
PROCEDURE: CT abdomen and pelvis with contrast. TECHNIQUE: Multiple contiguous axial images were obtained through the abdomen and pelvis after administration of intravenous contrast. Auto Exposure Controls were utilized during the CT exam to meet ALARA standards for radiation dose reduction. INDICATION: Blood in stools, lower abdominal pain. COMPARISON: None. FINDINGS: The lung bases are clear. The heart is normal in size. There is no pericardial effusion. The liver demonstrates no focal lesions. The spleen appears normal. The pancreas is normal. The adrenal glands are normal. The kidneys demonstrate no masses or hydronephrosis. The bowel loops are nondistended without evidence of obstruction. There are numerous punctate hyperdensities seen in the colon, may represent ingested medication. The appendix is upper normal in size measuring 6 mm, with no periappendiceal fat stranding or fluid seen. There is moderate stool in the proximal colon. The descending colon appears decompressed. No free fluid is seen. The urinary bladder wall appears mildly prominent, although this may be due to decompression. There is a 1.3 cm involuting or hemorrhagic cyst in the left ovary. IMPRESSION: 1. Moderate stool in the proximal colon with no focal areas of wall thickening seen. 2. Mild wall thickening of the urinary bladder, which may be due to decompression, however recommend correlation with urinalysis to exclude infection. Dictated by: Dictated on workstation # [id number]
== END ==
LOC: RAD FS 15:41
PROVIDERS: ATTEND Nurse Practitioner Family
DX: K92.1 Melena (principal); R10.30 Lower abdominal pain, unspecified
CPT/HCPCS: 74177

== ENCOUNTER 2018-11-16 17:02 | Emergency (ER) | payer MEDICAID ==
[~2018-11-16] VITALS: Ht 154.9 cm; Wt 61.2 kg
[~2018-11-16 17:02] MED LIST changes: -CATHETER FLUSH 10 ML SYR IV PRN; -HOLD METFORMIN - RECEIVED CONTRAST 20 ML VIAL IV SCH; -IOHEXOL 350 MG/ML 100 ML (OMNIPAQUE 350) VIAL IV ONE; -NS 100 ML (IVPB) BAG IV ONE
[2018-11-16] MEDS ORDERED: ACETAMINOPHEN 500 MG TAB (TYLENOL) PO ONE (17:45)
[2018-11-16] MEDS ORDERED: fentaNYL INJECTION 100 MCG/2 ML AMP IVP ONE ×2 (17:45→19:15)
[2018-11-16] MEDS ORDERED: PROMETHAZINE INJ 25 MG/ML (PHENERGAN) AMP IVP ONE (17:45)
[2018-11-16] MEDS ORDERED: DICYCLOMINE 10 MG/ML (BENTYL) 2 ML AMP IM ONE (17:45)
[2018-11-16] MEDS ORDERED: NS 1000 ML IV BAG IV ONE (17:45)
--- NOTE | 2018-11-16 17:54 | ED Abdominal Pain ---
General Chief Complaint: Abdominal/GI Problems Stated Complaint: ABD PAIN, BLOODT STOOLS, DIARRHEA, DIZZY Nursing Triage Note: Pt arrived by private vehicle with significant other with chief complaint of abdominal pain, bloody diarrhea and nausea. Pt is 6 weeks and last period was 10/05, OBGYN is Dr. Olson. Pt stated cramping started yesterday morning and diarrhea started yesterday afternoon. Diarrhea is bloody pt stated. Cramping is localized to umbilical area and below. Pt stated this is her 5th , 2 living, [address] olson checked HCG level and was rising. Pt has been having chills and feeling hot. Pt stated she had fever of 99.8 degrees yesterday. Pt stated she has nausea and when cramping starts to get worse, she feels like she is going to vomit. Stools were first soft, now watery. Pt is alert, oriented and ambulatory at arrival. Pt ambulated to bathroom to provide urine sample and to room 2. Sepsis Screen: No Definite Risk History of Present Illness Date Seen by Provider: Nov 16, 2018 Time Seen by Provider: 17:50 Initial Comments Patient presenting to the emergency department for evaluation of multiple issues including abdominal pain nausea diarrhea bloody stools and back pain. She says she is approximately 6 weeks based off dates and is being monitored closely by her OB. She had an HCG level drawn last and it was 1300 and 2 days ago it was 2300. She says the abdominal pain has been going on for 2 days straight crampy lower abdomen bilaterally. She says anytime she eats or drinks anything it makes the pain worse. She has had diarrhea for the past 2 days and has had bloody stools intermittently for 2 months and was scheduled to see a GI doctor at but could not make the appointment due to her son needing a surgery. She says that the pain continues to get worse. She has had 2 C-sections and D&C but no other abdominal surgeries. She is in no obvious distress with normal vital signs other than mild tachycardia. Have not she was diagnosed with urinary tract infection by her OB and a prescription was called in for an antibiotic but she has not started it yet. Allergies and Home Medications Allergies Coded Allergies: No Known Drug Allergies (Unverified , 08/05/18) Home Medications Docusate Sodium 100 Mg Capsule, 60 MG PO BID Prescribed by: JAE OLSON on 05/08/18 153 Hydrocodone Bit/Acetaminophen 1 Tab Tab, 1 TAB PO Q4H PRN for PAIN-MODERATE Prescribed by: JAE OLSON on 05/08/18 153 Ibuprofen 600 Mg Tablet, 600 MG PO Q6HR Prescribed by: JAE OLSON on 05/08/18 153 Inulin 2 Gm Tab.chew, 2 GM PO BID Prescribed by: JAE OLSON on 05/08/18 153 Lidocaine 30 Gm Cream..g., 30 GM TP 5XD PRN for pain Prescribed by: JAE OLSON on 05/08/181530 Nitrofurantoin Macrocrystal 100 Mg Capsule, 100 MG PO BID Prescribed by: RAKAN FRENCH on 08/05/182121 Ondansetron 8 Mg Tab.rapdis, 8 MG PO TID PRN for NAUSEA/VOMITING Prescribed by: RAKAN FRENCH on 08/05/182121 Patient Home Medication List Home Medication List Reviewed: Yes Review of Systems Review of Systems Constitutional: No chills, No fever EENTM: No Symptoms Reported Respiratory: No Symptoms Reported Cardiovascular: No Symptoms Reported Gastrointestinal: Abdominal Pain, Diarrhea, Nausea Genitourinary: No Symptoms Reported Musculoskeletal: back pain Psychiatric/Neurological: No Symptoms Reported Other Comments No vaginal bleeding or vaginal discharge All Other Systems Reviewed Negative Unless Noted: Yes Past Qtnczvw-Cllgnx-Rokzuw Hx Patient Social History Alcohol Use: Denies Use Number of Drinks Today: Alcohol Beverage of Choice: Wine Recreational Drug Use: No Smoking Status: Never a Smoker 2nd Hand Smoke Exposure: No Recent Foreign Travel: No Contact w/Someone Who Travel: No Recent Infectious Disease Expo: No Recent Hopitalizations: No Physical Abuse: No Sexual Abuse: No Mistreated: No Fear: No Immunizations Up To Date Tetanus Booster (TDap): Unknown PED Vaccines UTD: Yes Seasonal Allergies Seasonal Allergies: Yes Past Medical History Surgeries: Yes (C-SECTIONS X2, D&C) Respiratory: Yes Asthma Currently Using CPAP: No Currently Using BIPAP: No Cardiac: No Neurological: Yes (SINCE AGE 17) Headaches /Migraines Reproductive Disorders: No Female Reproductive Disorders: Denies Sexually Transmitted Disease: No HIV/AIDS: No Genitourinary: Yes Kidney Infection Gastrointestinal: No Gastroesophageal Reflux Musculoskeletal: No Endocrine: No HEENT: No (PERFORATED EAR DRUM A KID) Loss of Vision: Denies Hearing Impairment: Denies Cancer: No Psychosocial: Yes (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) PTSD Integumentary: No Blood Disorders: No (HX OF ANEMIA) Adverse Reaction/Blood Tranf: No Family Medical History Alcoholism 03 MOTHER 19 MOTHER Alcoholism 03 MOTHER 19 MOTHER Arthritis 19 MOTHER (RA) FH: depression 19 MOTHER FH: liver disease 19 MOTHER Family history: Arthritis 03 MOTHER Family history: Asthma 03 MOTHER Family history: Hypertension 03 MOTHER Family history: Osteoporosis 03 MOTHER Headache 03 MOTHER Hearing loss 03 MOTHER History of - anemia 03 MOTHER Hypercholesterolemia 03 MOTHER Osteoporosis 19 MOTHER Psychotic disorder 03 MOTHER, Onset:40's - 50 No Family History of: Abdominal aortic aneurysm Bern's disease Aphasia Cancer Cancer of colon Cataract Chest pain Congenital heart disease Congestive heart failure Cystic fibrosis Dementia Dysphagia Family history: Allergy Family history: Alzheimer's disease Family history: Breast disease Family history: Cardiovascular disease Family history: Coronary thrombosis Family history: Diabetes mellitus Family history: Gastrointestinal disease Family history: Glaucoma Family history: Thyroid disorder Heart disease Hereditary disease History of - disorder History of - respiratory disease History of drug abuse Human immunodeficiency virus (HIV) seropositivity Infertile Kidney disease Malignant neoplasm of lung Myocardial infarction Parkinson's disease Prostate cancer Seizure disorder Stroke Tuberculosis Visual impairment No Pertinent Family Hx Physical Exam Vital Signs Vital Signs - First Documented 11/16/18 17:25 Temp 98.7 Pulse 110 Resp 16 B/P (MAP) 125/63 (83) Pulse Ox 97 O2 Delivery Room Air Capillary Refill : Less Than 3 Seconds Height/Weight/BMI Height: 5'1.00" Weight: 135lbs. 0oz. 61.641378fo; 26.5 BMI Method:Stated General Appearance: WD/WN, no apparent distress HEENT: normal ENT inspection Neck: non-tender Respiratory: no respiratory distress Cardiovascular: normal peripheral pulses, tachycardia Gastrointestinal: soft, tenderness (mild diffuse lower abdominal ttp with no rebound or guarding.) Extremities: normal capillary refill Back: normal inspection, no CVA tenderness Neurologic/Psychiatric: alert, oriented x 3 Skin: normal color, warm/dry Progress/Results/Core Measures Results/Orders Lab Results Laboratory Tests Test 11/16/18 17:25 11/16/18 17:45 Range/Units Urine Color YELLOW Urine Clarity CLOUDY Urine pH 6.5 5-9 Urine Specific [place] 1.010 L 1.016-1.022 Urine Protein TRACE NEGATIVE Urine Glucose (UA) NEGATIVE NEGATIVE Urine Ketones 2+ H NEGATIVE Urine Nitrite POSITIVE H NEGATIVE Urine Bilirubin NEGATIVE NEGATIVE Urine Urobilinogen 0.2 NORMAL MG/DL Urine Leukocyte Esterase 2+ H NEGATIVE Urine RBC (Auto) 1+ H NEGATIVE Urine RBC RARE /HPF Urine WBC 50-100 H /HPF Urine Squamous Epithelial Cells 2-5 /HPF Urine Crystals NONE /LPF Urine Bacteria LARGE H /HPF Urine Casts NONE /LPF Urine Mucus NEGATIVE /LPF Urine Culture Indicated YES White Blood Count 11.0 4.3-11.0 10^3/uL Red Blood Count 4.51 4.35-5.85 10^6/uL Hemoglobin 13.6 11.5-16.0 G/DL Hematocrit 41 35-52 % Mean Corpuscular Volume 91 80-99 FL Mean Corpuscular Hemoglobin 30 25-34 PG Mean Corpuscular Hemoglobin Concent 33 32-36 G/DL Red Cell Distribution Width 12.6 10.0-14.5 % Platelet Count 238 130-400 10^3/uL Mean Platelet Volume 10.3 7.4-10.4 FL Neutrophils (%) (Auto) 80 H 42-75 % Lymphocytes (%) (Auto) 11 L 12-44 % Monocytes (%) (Auto) 7 0-12 % Eosinophils (%) (Auto) 2 0-10 % Basophils (%) (Auto) 1 0-10 % Neutrophils # (Auto) 8.7 H 1.8-7.8 X 10^3 Lymphocytes # (Auto) 1.2 1.0-4.0 X 10^3 Monocytes # (Auto) 0.8 0.0-1.0 X 10^3 Eosinophils # (Auto) 0.2 0.0-0.3 10^3/uL Basophils # (Auto) 0.1 0.0-0.1 10^3/uL Sodium Level 136 135-145 MMOL/L Potassium Level 3.8 3.6-5.0 MMOL/L Chloride Level 99 98-107 MMOL/L Carbon Dioxide Level 22 21-32 MMOL/L Anion Gap 15 H 5-14 MMOL/L Blood Urea Nitrogen 5 L 7-18 MG/DL Creatinine 0.69 0.60-1.30 MG/DL Estimat Glomerular Filtration Rate > 60 BUN/Creatinine Ratio 7 Glucose Level 88 70-105 MG/DL Calcium Level 9.1 8.5-10.1 MG/DL Corrected Calcium 8.9 8.5-10.1 MG/DL Magnesium Level 1.9 1.8-2.4 MG/DL Total Bilirubin 0.5 0.1-1.0 MG/DL Aspartate Amino Transf (AST/SGOT) 14 5-34 U/L Alanine Aminotransferase (ALT/SGPT) 10 0-55 U/L Alkaline Phosphatase 50 40-136 U/L Total Protein 7.1 6.4-8.2 GM/DL Albumin 4.3 3.2-4.5 GM/DL Lipase 69 8-78 U/L Human Chorionic Gonadotropin, Quant 09060 H <5 MIU/ML My Orders Orders - JO-ANN WEBBER DO Cbc With Automated Diff (11/16/18 17:38) Comprehensive Metabolic Panel (11/16/18 17:38) Lipase (11/16/18 17:38) Magnesium (11/16/18 17:38) Ua Culture If Indicated (11/16/18 17:38) Hcg,Quantitative (11/16/18 17:38) Dicyclomine Injection (Bentyl Injection) (11/16/18 17:45) Promethazine Injection (Phenergan Injec (11/16/18 17:45) Fentanyl Injection (Sublimaze Injection (11/16/18 17:45) Acetaminophen Tablet (Tylenol Tablet) (11/16/18 17:45) Ns Iv 1000 Ml (Sodium Chloride 0.9%) (11/16/18 17:45) Urine Culture (11/16/18 17:25) Ceftriaxone For Iv Use (Rocephin For I (11/16/18 18:15) D5 Lr Iv Solution (Dextrose 5%/Lactated (11/16/18 18:30) Fentanyl Injection (Sublimaze Injection (11/16/18 19:15) Medications Given in ED Current Medications Medications Dose Ordered Sig/Maribell Route Start Time Stop Time Status Last Admin Dose Admin Acetaminophen 1,000 mg ONCE ONCE PO 11/16/18 17:45 11/16/18 17:46 DC 11/16/18 18:15 1,000 MG Ceftriaxone Sodium 2000 mg/ Sterile Water 20 ml @ 240 mls/hr ONCE ONCE IV 11/16/18 18:15 11/16/18 18:19 DC 11/16/18 18:43 240 MLS/HR Dicyclomine HCl 20 mg ONCE ONCE IM 11/16/18 17:45 11/16/18 17:46 DC 11/16/18 18:15 20 MG Fentanyl Citrate 50 mcg ONCE ONCE IVP 11/16/18 17:45 11/16/18 17:46 DC 11/16/18 18:16 50 MCG Fentanyl Citrate 50 mcg ONCE ONCE IVP 11/16/18 19:15 11/16/18 19:16 DC 11/16/18 19:16 50 MCG Promethazine HCl 12.5 mg ONCE ONCE IVP 11/16/18 17:45 11/16/18 17:46 DC 11/16/18 18:16 12.5 MG Sodium Chloride 1,000 ml ONCE ONCE IV 11/16/18 17:45 11/16/18 17:54 DC 11/16/18 18:43 1,000 ML Vital Signs/I&O 11/16/18 11/16/18 11/16/18 17:25 18:15 18:16 Temp 98.7 98.7 98.7 Pulse 110 Resp 16 B/P (MAP) 125/63 (83) Pulse Ox 97 O2 Delivery Room Air Blood Pressure Mean: 83 Progress Progress Note : Progress Note Will check labs urinalysis treat symptoms and reassess. I suspect this is more of an enteritis given the abdominal cramping and bloody diarrhea. Patient has definite UTI with large bacteria, wbcs, and few squams. This may be causing her pain more than anything else. She is dehydrated with tachycardia and ketonuria noted. IV rocephin and IVF including dextrose containing fluids started in ED. Pain improved and able to tolerate fluids by mouth. Repeat abdominal exam benign. Repeat HR at 88. Given patient appears well with normal VS, benign PE and workup will dc in stable condition. Told to follow with PCP in 2 days and come back with worsening pain, fevers, vomiting, or other general concerns. Patient aware and agreeable with plan and verbalized understanding of the above instructions. Departure Impression Primary Impression: Abdominal pain Qualified Codes: R10.30 - Lower abdominal pain, unspecified Additional Impressions: Nausea alone Dehydration Urinary tract infection Qualified Codes: N30.00 - Acute cystitis without hematuria Ketonuria Disposition: HOME, SELF-CARE Condition: Stable Departure-Patient Inst. Referrals: [facility]/CHARLENE (PCP) Primary Care Physician LUISANA ALCAZAR APRN (Family) Primary Care Physician Patient Instructions: Nausea and Vomiting of (DC), Urinary Tract Infections in Adults Add. Discharge Instructions: All discharge instructions reviewed with patient and/or family. Voiced unde rstanding. You can take Doxylamine (Unisom) + Pyridoxine (Vit B6) for your nausea and vomiting. Also take tylenol for pain. Drink plenty of fluids and eat a soft non-irritating diet. Follow with your PCP in 2 days for a recheck and come back with any new or worsening symptoms. Thank you! Scripts Dicyclomine HCl (Dicyclomine HCl) 20 Mg Tablet 20 MG PO TID PRN for abdominal pain for 3 Days, #10 TAB Prov: JO-ANN WEBBER DO 11/16/18 Work/School Note: Work Release Form Date Seen in the Emergency Department: Nov 16, 2018 Return to Work: Nov 18, 2018 JO-ANN WEBBER DO Nov 16, 2018 17:54
[2018-11-16 17:57] LABS: BASOPHILS % (AUTO) 1 % (0-10); EOSINOPHILS % (AUTO) 2 % (0-10); HEMATOCRIT 41 % (35-52); HEMOGLOBIN 13.6 G/DL (11.5-16.0); LYMPHOCYTES % (AUTO) 11 % (12-44); MEAN CORPUSCULAR HEMOGLOBIN 30 PG (25-34); MEAN CORPUSCULAR HGB CONC 33 G/DL (32-36); MEAN CORPUSCULAR VOLUME 91 FL (80-99); MEAN PLATELET VOLUME 10.3 FL (7.4-10.4); MONOCYTES % (AUTO) 7 % (0-12); NEUTROPHILS % (AUTO) 80 % (42-75); PLATELET COUNT 238 10^3/uL (130-400); RED CELL DISTRIBUTION WIDTH 12.6 % (10.0-14.5)
[2018-11-16 17:58] LABS: BASOPHILS # (AUTO) 0.1 10^3/uL (0.0-0.1); EOSINOPHILS # (AUTO) 0.2 10^3/uL (0.0-0.3); LYMPHOCYTES # (AUTO) 1.2 X 10^3 (1.0-4.0); MONOCYTES # (AUTO) 0.8 X 10^3 (0.0-1.0); NEUTROPHILS # (AUTO) 8.7 X 10^3 (1.8-7.8)
[2018-11-16 18:00] LABS: CLARITY,URINE CLOUDY; COLOR,URINE YELLOW; GLUCOSE, URINE (UA) NEGATIVE (NEGATIVE); PH,URINE 6.5 (5-9); PROTEIN,URINE TRACE (NEGATIVE)
[2018-11-16 18:01] LABS: BACTERIA,URINE LARGE /HPF; BILIRUBIN,URINE NEGATIVE (NEGATIVE); KETONES,URINE 2+ (NEGATIVE); LEUKOCYTE ESTERASE ,URINE 2+ (NEGATIVE); NITRITE,URINE POSITIVE (NEGATIVE); RBC,URINE RARE /HPF; UROBILINOGEN,URINE 0.2 MG/DL (NORMAL); WBC,URINE 50-100 /HPF
[2018-11-16] MEDS ORDERED: cefTRIAXone FOR IV USE 2,000 MG in WATER (STERILE) FOR INJECTION 20 ML IV ONE (18:15)
[2018-11-16 18:21] LABS: ALANINE AMINOTRANSFERASE 10 U/L (0-55); ALBUMIN 4.3 GM/DL (3.2-4.5); ALKALINE PHOSPHATASE 50 U/L (40-136); BILIRUBIN,TOTAL 0.5 MG/DL (0.1-1.0); BUN/CREATININE RATIO 7; CALCIUM 9.1 MG/DL (8.5-10.1); CARBON DIOXIDE 22 MMOL/L (21-32); CHLORIDE 99 MMOL/L (98-107); CREATININE SERUM 0.69 MG/DL (0.60-1.30); GFR ESTIMATED > 60; GLUCOSE 88 MG/DL (70-105); LIPASE 69 U/L (8-78); MAGNESIUM 1.9 MG/DL (1.8-2.4); POTASSIUM 3.8 MMOL/L (3.6-5.0); SODIUM 136 MMOL/L (135-145); TOTAL PROTEIN 7.1 GM/DL (6.4-8.2)
[2018-11-16] MEDS ORDERED: D5 LR IV SOLUTION 1,000 ML IV SCH (18:30)
--- NOTE | 2018-11-16 19:00 | NUR ---
Report was given to MATEUSZ Pereyra at this time. Care was transferred.
[2018-11-16] MEDS ORDERED: DICY20TA10 PO (19:55)
[2018-11-16 20:05] VITALS: BP 98/57
== END 2018-11-16 20:05 | disposition home or self-care (01) ==
LOC: EDUNIT# 17:02 → ER FS 17:06
DX: O23.41 Unspecified infection of urinary tract in pregnancy, first trimester (principal); O26.891 Other specified pregnancy related conditions, first trimester; R82.4 Acetonuria; R11.0 Nausea; O99.281 Endocrine, nutritional and metabolic diseases complicating pregnancy, first trimester; E86.0 Dehydration; O99.511 Diseases of the respiratory system complicating pregnancy, first trimester; J45.909 Unspecified asthma, uncomplicated; O99.351 Diseases of the nervous system complicating pregnancy, first trimester; G43.909 Migraine, unspecified, not intractable, without status migrainosus; O99.611 Diseases of the digestive system complicating pregnancy, first trimester; K21.9 Gastro-esophageal reflux disease without esophagitis; O99.341 Other mental disorders complicating pregnancy, first trimester; F43.10 Post-traumatic stress disorder, unspecified; Z82.49 Family history of ischemic heart disease and other diseases of the circulatory system; Z3A.01 Less than 8 weeks gestation of pregnancy
CPT/HCPCS: 36415; 80053; 81000; 83690; 83735; 84702; 85025; 87077; 87088; 87186; 96361; 96365; 96372; 96375; 96376; 99284

== ENCOUNTER 2018-11-17 17:00 | Observation (INO) | payer MEDICAID ==
[~2018-11-17] VITALS: Ht 154.9 cm; Wt 60.3 kg
[~2018-11-17 17:00] MED LIST changes: +DICY20TA10 PO
[2018-11-17] MEDS ORDERED: LACTATED RINGERS 1,000 ML IV ONE (18:22)
[2018-11-17 18:23] LABS: BASOPHILS % (AUTO) 0 % (0-10); EOSINOPHILS # (AUTO) 0.4 10^3/uL (0.0-0.3); EOSINOPHILS % (AUTO) 5 % (0-10); HEMATOCRIT 39 % (35-52); HEMOGLOBIN 13.2 G/DL (11.5-16.0); LYMPHOCYTES # (AUTO) 1.5 X 10^3 (1.0-4.0); LYMPHOCYTES % (AUTO) 18 % (12-44); MEAN CORPUSCULAR HEMOGLOBIN 31 PG (25-34); MEAN CORPUSCULAR HGB CONC 34 G/DL (32-36); MEAN CORPUSCULAR VOLUME 91 FL (80-99); MEAN PLATELET VOLUME 10.4 FL (7.4-10.4); MONOCYTES # (AUTO) 0.9 X 10^3 (0.0-1.0); MONOCYTES % (AUTO) 10 % (0-12); NEUTROPHILS # (AUTO) 5.6 X 10^3 (1.8-7.8); NEUTROPHILS % (AUTO) 67 % (42-75); PLATELET COUNT 217 10^3/uL (130-400); RED CELL DISTRIBUTION WIDTH 12.9 % (10.0-14.5); WHITE BLOOD COUNT 8.4 10^3/uL (4.3-11.0)
[2018-11-17] MEDS ORDERED: FAMOTIDINE 20MG/2ML IV (PEPCID) IVP ONE (18:30)
[2018-11-17] MEDS ORDERED: PROMETHAZINE INJ 25 MG/ML (PHENERGAN) AMP IVP ONE (18:30)
[2018-11-17] MEDS ORDERED: HYOSCYAMINE 0.125 MG (LEVSIN) TAB SL ONE (18:30)
[2018-11-17 18:41] LABS: ALANINE AMINOTRANSFERASE 10 U/L (0-55); ALBUMIN 3.9 GM/DL (3.2-4.5); ALKALINE PHOSPHATASE 39 U/L (40-136); BILIRUBIN,TOTAL 0.3 MG/DL (0.1-1.0); BUN/CREATININE RATIO 5; CALCIUM 8.8 MG/DL (8.5-10.1); CARBON DIOXIDE 22 MMOL/L (21-32); CHLORIDE 106 MMOL/L (98-107); CREATININE SERUM 0.66 MG/DL (0.60-1.30); GFR ESTIMATED > 60; GLUCOSE 82 MG/DL (70-105); MAGNESIUM 1.8 MG/DL (1.8-2.4); POTASSIUM 3.7 MMOL/L (3.6-5.0); SODIUM 138 MMOL/L (135-145); TOTAL PROTEIN 6.3 GM/DL (6.4-8.2)
[2018-11-17] MEDS ORDERED: ANTACID SUSP 30 ML UDC (MYLANTA) PO ONE (19:30)
[2018-11-17] MEDS ORDERED: LIDOCAINE 2% VISCOUS 15 ML UDC PO ONE (19:30)
--- NOTE | 2018-11-17 19:30 | ED GI ---
General Chief Complaint: Abdominal/GI Problems Stated Complaint: ABD PAIN,6 WEEKS PREG Nursing Triage Note: PT STATES SHE HAS BLOODY DIARRHEA FOR 3 DAYS AND ABD CRAMPING. PT WAS SEEN AT [facility] YESTERDAY AND SENT HOME WITH MEDICATION TO IMPROVE CRAMPING. PT WAS STARTED ON ANTIBIOTICS FOR UTI. PT STATES SHE IS HAVING BLOOD CLOTS WITH HER DIARRHEA. PT IS 6 WEEKS . PT HAS HISTORY OF GI PROBLEMS IN THE PAST WHERE SHE HAS HAD INTERMITTENT DIARRHEA. PT STATES NAUSEA. PT STATES SHE HAS NOT BEEN ABLE TO EAT. PT STATES SHE HAS BEEN ABLE TO KEEP DOWN APPLESAUCE AND BANANA AND DOES NOT VOMIT IT UP. Sepsis Screen: No Definite Risk Source of Information: Patient Exam Limitations: No Limitations History of Present Illness Date Seen by Provider: Nov 17, 2018 Time Seen by Provider: 18:08 Initial Comments This 28-year-old young lady at about 6 weeks gestational age presents to the emergency room with complaints of generalized abdominal pain and cramping for the last 3 days. She also reports hematochezia and clumps of blood clot in her stools. She presented to the emergency room in [place] last night and was found to have a urinary tract infection. She was given Rocephin. She was given dicyclomine for the cramping. It does not seem to be effective for her. She has fairly intense nausea without vomiting. She has immediate pain in the epigastrium after eating or drinking. She also has rapid bowel movements within the hour after eating or drinking anything. She has had some problems with intermittent blood in her stools since August. She was referred to a auction block clerk but had to miss that appointment because her son had surgery the same day. She also reports previously having elevated lipase levels. She has no known personal or family history of IBD. She has no exposures suspicious for infectious diarrhea such as raw meat, seafood, poultry, livestock, reptiles, etc. Her aboriginal education teacher is Dr. Olson. Her primary care provider is Chrystal Colunga at [facility] in [place]. She has not yet had an ultrasound with this . Allergies and Home Medications Allergies Coded Allergies: No Known Drug Allergies (Unverified , 08/05/18) Home Medications Dicyclomine HCl 20 Mg Tablet, 20 MG PO TID PRN for abdominal pain Prescribed by: JO-ANN WEBBER on 11/16/181954 Docusate Sodium 100 Mg Capsule, 60 MG PO BID Prescribed by: JAE OLSON on 05/08/18 153 Hydrocodone Bit/Acetaminophen 1 Tab Tab, 1 TAB PO Q4H PRN for PAIN-MODERATE Prescribed by: JAE OLSON on 05/08/18 153 Ibuprofen 600 Mg Tablet, 600 MG PO Q6HR Prescribed by: JAE OLSON on 05/08/18 153 Inulin 2 Gm Tab.chew, 2 GM PO BID Prescribed by: JAE OLSON on 05/08/181530 Lidocaine 30 Gm Cream..g., 30 GM TP 5XD PRN for pain Prescribed by: JAE OLSON on 05/08/181530 Nitrofurantoin Macrocrystal 100 Mg Capsule, 100 MG PO BID Prescribed by: RAKAN FRENCH on 08/05/182121 Ondansetron 8 Mg Tab.rapdis, 8 MG PO TID PRN for NAUSEA/VOMITING Prescribed by: RAKAN FRENCH on 08/05/182121 Patient Home Medication List Home Medication List Reviewed: Yes Review of Systems Review of Systems Constitutional: no symptoms reported; No fever EENTM: No Symptoms Reported Respiratory: No Symptoms Reported Cardiovascular: No Symptoms Reported Gastrointestinal: See HPI Genitourinary: See HPI Musculoskeletal: no symptoms reported Skin: no symptoms reported Psychiatric/Neurological: No Symptoms Reported Endocrine: No Symptoms Reported Hematologic/Lymphatic: No Symptoms Reported Past Ddlijqv-Tiaxyp-Zwqdwv Hx Past Med/Social Hx: Reviewed and Corrections made Patient Social History Alcohol Use: Denies Use Number of Drinks Today: Alcohol Beverage of Choice: Wine Recreational Drug Use: No 2nd Hand Smoke Exposure: No Recent Foreign Travel: No Contact w/Someone Who Travel: No Recent Infectious Disease Expo: No Recent Hopitalizations: No Immunizations Up To Date Tetanus Booster (TDap): Unknown PED Vaccines UTD: Yes Seasonal Allergies Seasonal Allergies: Yes Past Medical History Surgeries: Yes (C-SECTIONS X2, D&C) Section Respiratory: Yes Asthma (tachycardia with albuterol, uses Xopenex) Currently Using CPAP: No Currently Using BIPAP: No Cardiac: No Neurological: Yes (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 17) Headaches /Migraines Hx : 5 Hx Para: 2 Reproductive Disorders: No Female Reproductive Disorders: Denies Sexually Transmitted Disease: No HIV/AIDS: No Genitourinary: Yes Kidney Infection Gastrointestinal: No Gastroesophageal Reflux Musculoskeletal: No Endocrine: No HEENT: No (PERFORATED EAR DRUM A KID) Loss of Vision: Denies Hearing Impairment: Denies Cancer: No Psychosocial: Yes (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) PTSD Integumentary: No Blood Disorders: No (HX OF ANEMIA) Adverse Reaction/Blood Tranf: No Family Medical History Reviewed Nursing Family Hx Alcoholism 03 MOTHER 19 MOTHER Alcoholism 03 MOTHER 19 MOTHER Arthritis 19 MOTHER (RA) FH: depression 19 MOTHER FH: liver disease 19 MOTHER Family history: Arthritis 03 MOTHER Family history: Asthma 03 MOTHER Family history: Hypertension 03 MOTHER Family history: Osteoporosis 03 MOTHER Headache 03 MOTHER Hearing loss 03 MOTHER History of - anemia 03 MOTHER Hypercholesterolemia 03 MOTHER Osteoporosis 19 MOTHER Psychotic disorder 03 MOTHER, Onset:40's - 50 No Family History of: Abdominal aortic aneurysm Brenton's disease Aphasia Cancer Cancer of colon Cataract Chest pain Congenital heart disease Congestive heart failure Cystic fibrosis Dementia Dysphagia Family history: Allergy Family history: Alzheimer's disease Family history: Breast disease Family history: Cardiovascular disease Family history: Coronary thrombosis Family history: Diabetes mellitus Family history: Gastrointestinal disease Family history: Glaucoma Family history: Thyroid disorder Heart disease Hereditary disease History of - disorder History of - respiratory disease History of drug abuse Human immunodeficiency virus (HIV) seropositivity Infertile Kidney disease Malignant neoplasm of lung Myocardial infarction Parkinson's disease Prostate cancer Seizure disorder Stroke Tuberculosis Visual impairment No Pertinent Family Hx Physical Exam Vital Signs Vital Signs - First Documented 11/17/18 17:19 Temp 99.0 Pulse 97 Resp 18 B/P (MAP) 103/72 (82) Capillary Refill : Less Than 3 Seconds Height/Weight/BMI Height: 5'1.00" Weight: 135lbs. 0oz. 61.164511uz; 26.5 BMI Method:Stated General Appearance: WD/WN, no apparent distress HEENT: normal ENT inspection, pharynx normal Neck: normal inspection Respiratory: lungs clear, normal breath sounds, no respiratory distress, no accessory muscle use Cardiovascular: regular rate, rhythm, no edema, no murmur Gastrointestinal: normal bowel sounds, soft; No distended; tenderness (throughout the right abdomen, most prominent in the right pelvis and in the right upper quadrant); No mass Extremities: normal inspection, no pedal edema Neurologic/Psychiatric: ammunition components inspector II-XII nml as tested, no motor/sensory deficits, alert, normal mood/affect, oriented x 3 Skin: normal color, warm/dry Progress/Results/Core Measures Results/Orders Lab Results Laboratory Tests Test 11/17/18 18:14 Range/Units White Blood Count 8.4 4.3-11.0 10^3/uL Red Blood Count 4.30 L 4.35-5.85 10^6/uL Hemoglobin 13.2 11.5-16.0 G/DL Hematocrit 39 35-52 % Mean Corpuscular Volume 91 80-99 FL Mean Corpuscular Hemoglobin 31 25-34 PG Mean Corpuscular Hemoglobin Concent 34 32-36 G/DL Red Cell Distribution Width 12.9 10.0-14.5 % Platelet Count 217 130-400 10^3/uL Mean Platelet Volume 10.4 7.4-10.4 FL Neutrophils (%) (Auto) 67 42-75 % Lymphocytes (%) (Auto) 18 12-44 % Monocytes (%) (Auto) 10 0-12 % Eosinophils (%) (Auto) 5 0-10 % Basophils (%) (Auto) 0 0-10 % Neutrophils # (Auto) 5.6 1.8-7.8 X 10^3 Lymphocytes # (Auto) 1.5 1.0-4.0 X 10^3 Monocytes # (Auto) 0.9 0.0-1.0 X 10^3 Eosinophils # (Auto) 0.4 H 0.0-0.3 10^3/uL Basophils # (Auto) 0.0 0.0-0.1 10^3/uL Erythrocyte Sedimentation Rate 7 0-20 MM/HR Sodium Level 138 135-145 MMOL/L Potassium Level 3.7 3.6-5.0 MMOL/L Chloride Level 106 98-107 MMOL/L Carbon Dioxide Level 22 21-32 MMOL/L Anion Gap 10 5-14 MMOL/L Blood Urea Nitrogen 3 L 7-18 MG/DL Creatinine 0.66 0.60-1.30 MG/DL Estimat Glomerular Filtration Rate > 60 BUN/Creatinine Ratio 5 Glucose Level 82 70-105 MG/DL Calcium Level 8.8 8.5-10.1 MG/DL Corrected Calcium 8.9 8.5-10.1 MG/DL Magnesium Level 1.8 1.8-2.4 MG/DL Total Bilirubin 0.3 0.1-1.0 MG/DL Aspartate Amino Transf (AST/SGOT) 12 5-34 U/L Alanine Aminotransferase (ALT/SGPT) 10 0-55 U/L Alkaline Phosphatase 39 L 40-136 U/L C-Reactive Protein High Sensitivity 3.36 H 0.00-0.50 MG/DL Total Protein 6.3 L 6.4-8.2 GM/DL Albumin 3.9 3.2-4.5 GM/DL Lipase 43 8-78 U/L Human Chorionic Gonadotropin, Quant [id number] H <5 MIU/ML My Orders Orders - JULIAN PALACIOS MD Cbc With Automated Diff (11/17/18 18:08) Comprehensive Metabolic Panel (11/17/18 18:08) Magnesium (11/17/18 18:08) Ed Iv/Invasive Line Start (11/17/18 18:08) Hcg,Quantitative (11/17/18 18:22) Lipase (11/17/18 18:22) Stool Culture (11/17/18 18:22) Fecal Wbc (11/17/18 18:22) Parasite Complete Exam Stool (11/17/18 18:22) Fecal Occult Bedside (11/17/18 18:22) Ed Iv/Invasive Line Start (11/17/18 18:22) Lactated Ringers (Lr 1000 Ml Iv Solution (11/17/18 18:22) Promethazine Injection (Phenergan Injec (11/17/18 18:30) Famotidine Injection (Pepcid Injection) (11/17/18 18:30) Hyoscyamine Sl Tablet (Levsin Sl Tablet) (11/17/18 18:30) Us Gallbladder [id number] (11/17/18 18:26) Us Ob Single Fetus<14 Inm52552 (11/17/18 18:26) Us Appendix [id number] (11/17/18 18:26) Hs C Reactive Protein (11/17/18 18:28) Erythrocyte Sedimentation Rate (11/17/18 18:28) Lidocaine 2% Viscous 15 Ml (Xylocaine Vi (11/17/18 19:30) Antacid Suspension (Mylanta Suspension (11/17/18 19:30) Fentanyl Injection (Sublimaze Injection (11/17/18 20:15) Medications Given in ED Current Medications Medications Dose Ordered Sig/Maribell Route Start Time Stop Time Status Last Admin Dose Admin Al Hydrox/Mg Hydrox/Simethicone 30 ml ONCE ONCE PO 11/17/18 19:30 11/17/18 19:31 DC 11/17/18 19:30 30 ML Famotidine 20 mg ONCE ONCE IVP 11/17/18 18:30 11/17/18 18:31 DC 11/17/18 18:52 20 MG Fentanyl Citrate 50 mcg ONCE ONCE IVP 11/17/18 20:15 11/17/18 20:16 DC 11/17/18 20:20 50 MCG Hyoscyamine Sulfate 0.125 mg ONCE ONCE SL 11/17/18 18:30 11/17/18 18:31 DC 11/17/18 18:52 0.125 MG Lactated Ringer's 1,000 ml @ 0 mls/hr Q0M ONCE IV 11/17/18 18:22 11/17/18 18:26 DC 11/17/18 19:23 1,000 MLS/HR Lidocaine HCl 15 ml ONCE ONCE PO 11/17/18 19:30 11/17/18 19:31 DC 11/17/18 19:30 15 ML Promethazine HCl 12.5 mg ONCE ONCE IVP 11/17/18 18:30 11/17/18 18:31 DC 11/17/18 18:52 12.5 MG Vital Signs/I&O 11/17/18 17:19 Temp 99.0 Pulse 97 Resp 18 B/P (MAP) 103/72 (82) Blood Pressure Mean: 82 Progress Progress Note #1: Time: 19:28 Progress Note Patient was treated with Phenergan and Pepcid. She has IV fluids infusing. Ultrasound of the appendix, pelvis, and gallbladder were preliminarily negative according to the splunk developer. Patient's nausea is improving but she is still having pain and cramping. We will trial a GI cocktail and reassess after that. Labs are relatively unremarkable. Ultrasound showed a gestational sac near gestational age within the uterus. Progress Note #2: Time: 21:54 Progress Note GI cocktail did not improve her pain. She was given fentanyl for further pain management. A stool sample was collected and was Hemoccult positive. Stool was sent for culture. I discussed disposition with the patient. She does not feel she can manage her present symptoms at home. Admission for observation and symptom management was offered. Patient requested admission. Case was discussed with Dr. Roberts who is agreeable. Be continued for urinary tract infection. Medications for symptom management and IV hydration were ordered. Diagnostic Imaging Diagonstic Imaging: Ultrasound Plain Films/CT/US/NM/MRI: abdomen (appendix) Comments Ultrasound of the appendix discussed with the forest ranger technician and report reviewed. See report below: NAME: DARINEL VALLEJO [employer] REC#: [id number] PT STATUS: REG ER : 1990 PHYSICIAN: JULIAN PALACIOS MD ADMIT DATE: 11/17/18/ER Signed Date of Exam: 11/17/18 US APPENDIX [id number] PATIENT HISTORY: Abdominal pain, . TECHNIQUE: Ultrasound of the right lower quadrant of the abdomen was performed. COMPARISON: CT from 08/13/2018. FINDINGS: The appendix is not seen. Bowel gas is noted. No free fluid is seen. The prior CT indicates that the appendix is retrocecal. IMPRESSION: The appendix is not seen and likely retrocecal. No free fluid is seen. Dictated by: Dictated on workstation # [id number] Dict: 11/17/181936 Trans: 11/17/181941 Interpreted by: FLORENCIA DUQUE MD Electronically signed by: FLORENCIA DUQUE MD 11/17/181941 Diagonstic Imaging: Ultrasound Plain Films/CT/US/NM/MRI: pelvis Comments Obstetrical ultrasound of the pelvis discussed with the forest ranger technician and report reviewed. See report below: NAME: DARINEL VALLEJO [employer] REC#: [id number] PT STATUS: REG ER : 1990 PHYSICIAN: JULIAN PALACIOS MD ADMIT DATE: 11/17/18/ER Signed Date of Exam: 11/17/18 US OB SINGLE FETUS<14 [id number] PROCEDURE: US OB SINGLE FETUS <14 WKS. TECHNIQUE: Multiple real-time grayscale images were obtained over the gravid uterus in various projections. INDICATION: Abdominal pain. Patient is 6 weeks . Uterus measures 6.2 x 5.5 x 4.7 cm. There is an intrauterine gestational sac present of approximately 6 weeks 5 days gestation. However, no pole is seen at this time. No perigestational sac hemorrhage is detected. The ovaries were not visualized due to bowel gas. No adnexal mass or free fluid is seen. IMPRESSION: 6 week 5 day intrauterine gestational sac without evidence of pole. While this could be owing to early gestation, possibility of blighted ovum cannot be entirely excluded. Followup ultrasound and/or correlation with serial beta-hCG levels is recommended to evaluate viability. Dictated by: Dictated on workstation # [id number] Dict: 11/17/181938 Trans: 11/17/181945 Interpreted by: ANDRÉS ODEN MD Electronically signed by: ANDRÉS ODEN MD 11/17/181945 Diagonstic Imaging: Ultrasound Plain Films/CT/US/NM/MRI: abdomen Comments Gallbladder ultrasound discussed with the forest ranger technician and report reviewed. See report below: NAME: DARINEL VALLEJO [employer] REC#: [id number] PT STATUS: REG ER : 1990 PHYSICIAN: JULIAN PALACIOS MD ADMIT DATE: 11/17/18/ER Signed Date of Exam: 11/17/18 US GALLBLADDER [id number] REASON FOR EXAM: Abdominal pain, . COMPARISON: None. TECHNIQUE: Grayscale and Doppler ultrasound performed in the right upper quadrant of the abdomen to evaluate the liver and gallbladder. FINDINGS: The liver is normal in size and shape. The liver echogenicity is within normal limits. There are no focal lesions. No intrahepatic biliary dilatation is present. The common bile duct is not dilated and measures 5 mm. The main portal vein is hepatopedal. There is no evidence of cholelithiasis, gallbladder wall thickening or pericholecystic fluid. Sonographic Jiménez's sign is negative. The minimal visualized portion of the head of the pancreas are within normal limits. The body and tail of the pancreas are not well visualized due to overlying bowel gas. The visualized portions of the IVC appear normal. The right kidney measures approximately 9.0 cm in length and has a normal appearance. No hydronephrosis is seen. No free fluid is seen. IMPRESSION: 1. No cholelithiasis or acute cholecystitis. No liver or gallbladder abnormality detected. Dictated by: Dictated on workstation # [id number] Dict: 11/17/181937 Trans: 11/17/181941 Interpreted by: FLORENCIA DUQUE MD Electronically signed by: FLORENCIA DUQUE MD 11/17/181941 Departure Communication (Admissions) Time/Spoke to Admitting Phy: 09:02 Dr. Roberts Impression Primary Impression: Right-sided abdominal pain of unknown cause Additional Impressions: Bloody diarrhea Qualified Codes: Z3A.01 - Less than 8 weeks gestation of Urinary tract infection Qualified Codes: N39.0 - Urinary tract infection, site not specified Disposition: ADMITTED INPATIENT Condition: Improved Admissions Decision to Admit Reason: Admit from ER (General) Decision to Admit/Date: Nov 17, 2018 Time/Decision to Admit Time: 21:02 Departure-Patient Inst. Referrals: [facility] [place] Primary Care Physician LUISANA ALCAZAR APRN (Family) Primary Care Physician JULIAN PALACIOS MD Nov 17, 2018 19:30
--- NOTE | 2018-11-17 19:41 | Diagnostic Imaging Report ---
PATIENT HISTORY: Abdominal pain, . TECHNIQUE: Ultrasound of the right lower quadrant of the abdomen was performed. COMPARISON: CT from 08/13/2018. FINDINGS: The appendix is not seen. Bowel gas is noted. No free fluid is seen. The prior CT indicates that the appendix is retrocecal. IMPRESSION: The appendix is not seen and likely retrocecal. No free fluid is seen. Dictated by: Dictated on workstation # [id number]
--- NOTE | 2018-11-17 19:42 | Diagnostic Imaging Report ---
REASON FOR EXAM: Abdominal pain, . COMPARISON: None. TECHNIQUE: Grayscale and Doppler ultrasound performed in the right upper quadrant of the abdomen to evaluate the liver and gallbladder. FINDINGS: The liver is normal in size and shape. The liver echogenicity is within normal limits. There are no focal lesions. No intrahepatic biliary dilatation is present. The common bile duct is not dilated and measures 5 mm. The main portal vein is hepatopedal. There is no evidence of cholelithiasis, gallbladder wall thickening or pericholecystic fluid. Sonographic Jiménez's sign is negative. The minimal visualized portion of the head of the pancreas are within normal limits. The body and tail of the pancreas are not well visualized due to overlying bowel gas. The visualized portions of the IVC appear normal. The right kidney measures approximately 9.0 cm in length and has a normal appearance. No hydronephrosis is seen. No free fluid is seen. IMPRESSION: 1. No cholelithiasis or acute cholecystitis. No liver or gallbladder abnormality detected. Dictated by: Dictated on workstation # [id number]
--- NOTE | 2018-11-17 19:45 | Diagnostic Imaging Report ---
PROCEDURE: US OB SINGLE FETUS <14 WKS. TECHNIQUE: Multiple real-time grayscale images were obtained over the gravid uterus in various projections. INDICATION: Abdominal pain. Patient is 6 weeks . Uterus measures 6.2 x 5.5 x 4.7 cm. There is an intrauterine gestational sac present of approximately 6 weeks 5 days gestation. However, no pole is seen at this time. No perigestational sac hemorrhage is detected. The ovaries were not visualized due to bowel gas. No adnexal mass or free fluid is seen. IMPRESSION: 6 week 5 day intrauterine gestational sac without evidence of pole. While this could be owing to early gestation, possibility of blighted ovum cannot be entirely excluded. Followup ultrasound and/or correlation with serial beta-hCG levels is recommended to evaluate viability. Dictated by: Dictated on workstation # [id number]
[2018-11-17] MEDS ORDERED: fentaNYL INJECTION 100 MCG/2 ML AMP IVP ONE (20:15)
[2018-11-17 22:11] VITALS: BP 97/62
[2018-11-17] MEDS: D5 1/2 NS W/KCL 20 MEQ/L 1,000 ML IV SCH (22:41)
[2018-11-17] MEDS: HYDROcodone/APAP 5 MG/325 MG (LORTAB) TAB PO PRN (22:42)
[2018-11-17] MEDS: cefTRIAXone 1,000 MG/SWFI 10 ML IV PUSH IV SCH ×2 (22:42)
--- NOTE | 2018-11-17 23:00 | NUR ---
Patient admit to room 429. Arrived per w/c, accompanied by ER staff. A/Ox3, v/u to admit routines and orders. C/O abd pain and cramps, reports has been sick for 1 week. Medicated with 1 norco for c/o abd pain, rates at 8. Call light given.
[2018-11-17] MEDS ORDERED: CATHETER FLUSH 10 ML SYR IV PRN (23:45)
[2018-11-18] VITALS: BP 93/54
[2018-11-18] MEDS: HYDROcodone/APAP 5 MG/325 MG (LORTAB) TAB PO PRN ×3 (01:58→14:15)
[2018-11-18] MEDS: fentaNYL INJECTION 100 MCG/2 ML AMP IV PRN ×4 (02:42→17:41)
[2018-11-18 04:00] VITALS: BP 97/55
[2018-11-18] MEDS: D5 1/2 NS W/KCL 20 MEQ/L 1,000 ML IV SCH ×4 (04:26→21:08)
[2018-11-18] MEDS: PROMETHAZINE INJ 25 MG/ML (PHENERGAN) AMP IV PRN ×2 (04:34→14:16)
[2018-11-18] MEDS: CATHETER FLUSH 10 ML SYR IV SCH ×3 (05:12→21:08)
[2018-11-18 06:41] LABS: BASOPHILS % (AUTO) 1 % (0-10); EOSINOPHILS # (AUTO) 0.5 10^3/uL (0.0-0.3); EOSINOPHILS % (AUTO) 7 % (0-10); HEMATOCRIT 38 % (35-52); HEMOGLOBIN 12.5 G/DL (11.5-16.0); LYMPHOCYTES # (AUTO) 1.7 X 10^3 (1.0-4.0); LYMPHOCYTES % (AUTO) 22 % (12-44); MEAN CORPUSCULAR HEMOGLOBIN 30 PG (25-34); MEAN CORPUSCULAR HGB CONC 33 G/DL (32-36); MEAN CORPUSCULAR VOLUME 91 FL (80-99); MEAN PLATELET VOLUME 10.7 FL (7.4-10.4); MONOCYTES # (AUTO) 0.8 X 10^3 (0.0-1.0); MONOCYTES % (AUTO) 11 % (0-12); NEUTROPHILS # (AUTO) 4.5 X 10^3 (1.8-7.8); NEUTROPHILS % (AUTO) 59 % (42-75); PLATELET COUNT 203 10^3/uL (130-400); WHITE BLOOD COUNT 7.6 10^3/uL (4.3-11.0)
[2018-11-18 07:01] LABS: ALANINE AMINOTRANSFERASE 10 U/L (0-55); ALBUMIN 3.7 GM/DL (3.2-4.5); ALKALINE PHOSPHATASE 42 U/L (40-136); BILIRUBIN,TOTAL 0.2 MG/DL (0.1-1.0); BUN/CREATININE RATIO 3; CALCIUM 8.4 MG/DL (8.5-10.1); CARBON DIOXIDE 21 MMOL/L (21-32); CHLORIDE 108 MMOL/L (98-107); CREATININE SERUM 0.66 MG/DL (0.60-1.30); GFR ESTIMATED > 60; GLUCOSE 107 MG/DL (70-105); POTASSIUM 3.6 MMOL/L (3.6-5.0); SODIUM 137 MMOL/L (135-145); TOTAL PROTEIN 5.9 GM/DL (6.4-8.2)
[2018-11-18 08:00] VITALS: BP 110/66
[2018-11-18] MEDS: FAMOTIDINE 20MG/2ML IV (PEPCID) IV SCH ×2 (08:36→21:06)
[2018-11-18] MEDS ORDERED: CEPH500C PO (09:08)
[2018-11-18] MEDS ORDERED: LEVA15HF5 INH (09:18)
[2018-11-18] MEDS ORDERED: PREN1CAP PO (09:18)
[2018-11-18] MEDS ORDERED: CETI10TA20 PO (09:18)
--- NOTE | 2018-11-18 09:18 | NUR ---
VERIFIED WITH [facility] THE KEFLEX AND DICYCLOMINE WERE PICKED UP. PATIENT STATES SHE ALSO USES THE XOPENEX INHALER NEEDED. SHE TAKES ZYRTEC OTC NEEDED, AND A MTV DAILY,
--- NOTE | 2018-11-18 11:27 | History & Physicial (CHS) ---
HPI History of Present Illness: Abdominal pain- has had pain around umbilicus and down to right pelvis x 4 days. Has had blood in stools since about August, but previous to this was normal BM with blood on stool and some free blood passed along with cramping, but would only last for like a day or so. She has been referred to GI and has not yet seen them. Started with diarrhea a few hours after the pain, started with soft stool, but progressed to watery along with blood and sometimes blood clots. Denies camping, travel, has been eating same foods as rest of family and no one else is sick. Had fever of 99.8 on Friday. Was having cold chills and then feeling super hot in the first couple of days. Was diagnosed with UTI last by her Ob, Dr. Mcpherson, got results on Friday and started yesterday morning. She went to ER in [place] Friday and got dicyclomine and rocephin and she was discharged from there, got her Keflex and used dicyclomine a couple of times and then came back to ER due to worsening stomach cramping. Denies rashes, joint pains. She admits occasional blurry vision. Has had a lot of UTIs throughout her whole life. No known family history of GI disease, but she does not have contact with her biological father and her mother has a lot of medical problems and she is not sure what all she has. She does have rheumatoid arthritis. , LMP October 05. 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 Second time she chose to proceed with D&C right away. Date seen by provider: Nov 18, 2018 Time Seen by Provider: 11:27 Attending Physician Aline Roberts MD PCP Center/[facility] [place] Consult Date of Admission Nov 17, 2018 at 21:02 Home Medications Home Medications Reviewed patient Home Medication Reconciliation performed by pharmacy medication reconciliations multi craft maintenance technician and/or nursing. Patients Allergies have been reviewed. Allergies Coded Allergies: No Known Drug Allergies (Unverified , 08/05/18) [id number]-Ovyhnx Hx Patient Social History Alcohol Use: Denies Use Recreational Drug Use: No 2nd Hand Smoke Exposure: No Recent Foreign Travel: No Contact w/other who traveled: No Recent Hopitalizations: No Recent Infectious Disease Expo: No Immunizations Up To Date Tetanus Booster (TDap): Unknown Past Medical History PMHx: Asthma PSurgHx: x 2 D&C x 2 Family Medical History Family History: Alcoholism 03 MOTHER 19 MOTHER Alcoholism 03 MOTHER 19 MOTHER Arthritis 19 MOTHER (RA) FH: depression 19 MOTHER FH: liver disease 19 MOTHER Family history: Arthritis 03 MOTHER Family history: Asthma 03 MOTHER Family history: Hypertension 03 MOTHER Family history: Osteoporosis 03 MOTHER Headache 03 MOTHER Hearing loss 03 MOTHER History of - anemia 03 MOTHER Hypercholesterolemia 03 MOTHER Osteoporosis 19 MOTHER Psychotic disorder 03 MOTHER, Onset:40's - 50 No Family History of: Abdominal aortic aneurysm [place]'s disease Aphasia Cancer Cancer of colon Cataract Chest pain Congenital heart disease Congestive heart failure Cystic fibrosis Dementia Dysphagia Family history: Allergy Family history: Alzheimer's disease Family history: Breast disease Family history: Cardiovascular disease Family history: Coronary thrombosis Family history: Diabetes mellitus Family history: Gastrointestinal disease Family history: Glaucoma Family history: Thyroid disorder Heart disease Hereditary disease History of - disorder History of - respiratory disease History of drug abuse Human immunodeficiency virus (HIV) seropositivity Infertile Kidney disease Malignant neoplasm of lung Myocardial infarction Parkinson's disease Prostate cancer Seizure disorder Stroke Tuberculosis Visual impairment Review of Systems (CHC) Constitutional: see HPI EENTM: no symptoms reported Respiratory: no symptoms reported Cardiovascular: no symptoms reported Gastrointestinal: see HPI Genitourinary: see HPI : Yes LMP: October 05, 2018 Musculoskeletal: no symptoms reported Skin: No rash Psychiatric/Neurological: No Symptoms Reported Reviewed Test Results Reviewed Test Results Lab Laboratory Tests Test 11/17/18 18:14 11/18/18 06:10 Range/Units White Blood Count 8.4 7.6 4.3-11.0 10^3/uL Red Blood Count 4.30 L 4.18 L 4.35-5.85 10^6/uL Hemoglobin 13.2 12.5 11.5-16.0 G/DL Hematocrit 39 38 35-52 % Mean Corpuscular Volume 91 91 80-99 FL Mean Corpuscular Hemoglobin 31 30 25-34 PG Mean Corpuscular Hemoglobin Concent 34 33 32-36 G/DL Red Cell Distribution Width 12.9 13.0 10.0-14.5 % Platelet Count 217 203 130-400 10^3/uL Mean Platelet Volume 10.4 10.7 H 7.4-10.4 FL Neutrophils (%) (Auto) 67 59 42-75 % Lymphocytes (%) (Auto) 18 22 12-44 % Monocytes (%) (Auto) 10 11 0-12 % Eosinophils (%) (Auto) 5 7 0-10 % Basophils (%) (Auto) 0 1 0-10 % Neutrophils # (Auto) 5.6 4.5 1.8-7.8 X 10^3 Lymphocytes # (Auto) 1.5 1.7 1.0-4.0 X 10^3 Monocytes # (Auto) 0.9 0.8 0.0-1.0 X 10^3 Eosinophils # (Auto) 0.4 H 0.5 H 0.0-0.3 10^3/uL Basophils # (Auto) 0.0 0.0 0.0-0.1 10^3/uL Erythrocyte Sedimentation Rate 7 0-20 MM/HR Sodium Level 138 137 135-145 MMOL/L Potassium Level 3.7 3.6 3.6-5.0 MMOL/L Chloride Level 106 108 H 98-107 MMOL/L Carbon Dioxide Level 22 21 21-32 MMOL/L Anion Gap 10 8 5-14 MMOL/L Blood Urea Nitrogen 3 L 2 L 7-18 MG/DL Creatinine 0.66 0.66 0.60-1.30 MG/DL Estimat Glomerular Filtration Rate > 60 > 60 BUN/Creatinine Ratio 5 3 Glucose Level 82 107 H 70-105 MG/DL Calcium Level 8.8 8.4 L 8.5-10.1 MG/DL Corrected Calcium 8.9 8.6 8.5-10.1 MG/DL Magnesium Level 1.8 1.8-2.4 MG/DL Total Bilirubin 0.3 0.2 0.1-1.0 MG/DL Aspartate Amino Transf (AST/SGOT) 12 12 5-34 U/L Alanine Aminotransferase (ALT/SGPT) 10 10 0-55 U/L Alkaline Phosphatase 39 L 42 40-136 U/L C-Reactive Protein High Sensitivity 3.36 H 0.00-0.50 MG/DL Total Protein 6.3 L 5.9 L 6.4-8.2 GM/DL Albumin 3.9 3.7 3.2-4.5 GM/DL Lipase 43 8-78 U/L Human Chorionic Gonadotropin, Quant 92310 H <5 MIU/ML Radiology US ob- 6w5d gestational sac with no pole yet seen GB US unremarkable RLQ US with non-visualization of appendix Physical Exam-(CHC) Physical Exam Vital Signs VS - Last 72 Hours, by Label 11/17/18 11/17/18 11/17/18 11/18/18 17:19 21:59 22:11 00:00 Temp 99.0 99.0 98.3 98.4 Pulse 97 97 85 82 Resp 18 18 18 18 B/P (MAP) 103/72 (82) 103/72 (82) 97/62 93/54 (67) Pulse Ox 99 99 97 O2 Delivery Room Air Room Air 11/18/18 11/18/18 11/18/18 11/18/18 04:00 08:00 08:00 12:00 Temp 98.7 97.8 97.8 Pulse 74 83 80 Resp 18 18 18 B/P (MAP) 97/55 (69) 110/66 (81) 112/53 (72) Pulse Ox 97 99 98 O2 Delivery Room Air Room Air Room Air Room Air 11/18/18 15:38 Temp 99.4 Pulse 76 Resp 18 B/P (MAP) 99/55 (70) Pulse Ox 99 O2 Delivery Room Air Capillary Refill : Less Than 3 Seconds General Appearance: WD/WN, no apparent distress Respiratory: lungs clear, normal breath sounds Cardiovascular: regular rate, rhythm, no murmur Gastrointestinal: normal bowel sounds, soft, tenderness (greatest on right) Extremities: no pedal edema Neurologic/Psychiatric: alert, normal mood/affect Skin: normal color, warm/dry Assessment/Plan Assessment/Plan Admission Status: Observation (1) Right-sided abdominal pain of unknown cause Status: Acute Assessment & Plan: Severe pain requiring fentanyl for relief, unable to tolerate oral without severe pain. Lipase nml, labs unremarkable. US RLQ with non-visualization of appendix, Surgery consulted. (2) Bloody diarrhea Status: Acute Assessment & Plan: Given length of time, suspect possible inflammatory bowel disease, although inflammatory markers not significantly high. Stool cultures pending. Surgery consulted given her RLQ pain as well as bloody stools. (3) Urinary tract infection Status: Acute Assessment & Plan: On treatment prior to admit, having difficulty with oral, treating with ceftriaxone currently. Qualifiers: Qualified Codes: N39.0 - Urinary tract infection, site not specified (4) Status: Acute Assessment & Plan: US with 6w5d gestational sac, HCG increasing appropriately, will need f/u US next week. Qualifiers: Qualified Codes: Z3A.01 - Less than 8 weeks gestation of Clinical Quality Measures DVT/VTE Risk/Contraindication: Risk Factor Score Per Nursin RFS Level Per Nursing on Admit: 2=Moderate ALINE ROBERTS MD Nov 18, 2018 11:27
[2018-11-18 12:00] VITALS: BP 112/53
--- NOTE | 2018-11-18 15:14 | NUR ---
Initial visit by Chaplain negar Brewer. Male visitor present in the room while pt was in the restroom. No concerns at this time.
[2018-11-18 15:38] VITALS: BP 99/55
[2018-11-18 19:42] VITALS: BP 106/62
--- NOTE | 2018-11-18 20:29 | CONSULTATION REPORT ---
DATE OF SERVICE: 11/18/2018 ATTENDING CLINICIAN: Yoko Reyes APRN. ADMITTING PHYSICIAN: Viviana Roberts MD HISTORY OF PRESENT ILLNESS: The patient is a 28-year-old female G5, P2 at 6 weeks 5 days' gestation. She reports that for approximately the past four days that she has had some crampy abdominal pain, which is more on the right side of the abdomen, which encompasses the right upper abdominal quadrant; however, the right lateral abdomen and right lower abdominal quadrant on an intermittent basis. It is usually is worse after eating foods. She also states that during this timeframe she has noticed dark maroon colored blood clots with her bowel movements. She states that she has had this bleeding even since August of this year on an intermittent basis. She was scheduled to see a dictating machine transcriber at [facility]; however, due to scheduling complex was unable to go to this appointment. An ultrasound of the right upper abdominal quadrant did not show any gallbladder wall thickening nor pericholecystic fluids as well as no gallstones or sludge. An ultrasound of the right lower abdominal quadrant was done; however, there was no appendix visualized consistent more with a retrocecal appendix. There were no inflammatory changes identified that would indicate that there was an acute appendicitis. Her laboratory work on this admission has also been stable with a normal white count. She has also been afebrile. Based on her signs and symptoms, there is pain upon examination of the right lower abdominal quadrant, which most likely indicates a terminal ileitis, which is the most common spot of inflammation in inflammatory bowel disease, especially with Crohn's disease. Our recommendations at this time is to proceed with followup with her consultation with gastroenterology for further evaluation as well as medical therapy; however, in the interim, we will recommend trying to obtain adequate pain control, antinausea medication as well as proper alimentation for adequate weight gain until she is in her second trimester for further evaluation and testing including; however, not limited to a CT scan. PAST MEDICAL HISTORY: Asthma. PAST SURGICAL HISTORY: section x2, D and C x2. ALLERGIES: No known drug allergies. MEDICATIONS: Cephalexin 500 mg b.i.d., cetirizine 10 mg daily, dicyclomine 20 mg t.i.d. p.r.n., levalbuterol inhaler 1 puff q.6 hours p.r.n., vitamin daily. SOCIAL HISTORY: Negative smoke, negative alcohol. FAMILY HISTORY: Mother, hypertension, osteoporosis, alcoholism. VITAL SIGNS: Temperature 98.6, blood pressure 106/62, pulse 82, respirations 18, pulse ox 100% on room air. REVIEW OF SYSTEMS: GENERAL: Well-nourished female, in no acute distress at this time. She is not experiencing any shortness of breath or difficulty breathing. No chest pain, palpitations, diaphoresis. Intermittent episodes of nausea; however, no episodes of vomiting. She states that after taking in liquids or food she will have the pain on the right side of the abdomen. She also has had maroon color clotted stools with her bowel movements on an intermittent basis since 08/2018. No fever, chills, no recent inadvertent weight loss. All other review of systems negative. PHYSICAL EXAMINATION: CHEST: Clear. Good breath sounds bilaterally. HEART: Regular, no murmurs. EXTREMITIES: No lower extremity edema. Negative Homans sign. HEENT: No scleral icterus. NECK: No cervical lymphadenopathy. ABDOMEN: Soft, nondistended. There is pain along the right lateral abdomen as well as right lower abdominal quadrant around the terminal ileum. SKIN: Warm, dry. LABORATORY DATA: WBC 7.6, hemoglobin 12.5, hematocrit 38, platelets 203, BUN 2, creatinine 0.66. Liver function enzymes normal, lipase normal. ASSESSMENT AND PLAN: A 28-year-old female with intermittent episodes of rectal bleeding as well as crampy abdominal pain. She is a G5, P2 at 6 weeks 5 days gestation. We feel that her ultrasound of the gallbladder and appendix were normal. Her signs and symptoms are more consistent with an inflammatory bowel disease more specifically Crohn's disease. Our recommendations for now is to proceed with conservative therapy. Her vital signs were stable. She is afebrile. She has stable hemoglobin. We will increase her pain medication to try to get her crampy pain under control and we will also proceed with a trial of low residue diet. Our recommendation is that she also proceed with followup with consultation with dictating machine transcriber already scheduled at [facility]. Our goal at this time is to get her through the first trimester and then if she continues to have symptoms, then to proceed with further testing including a possible CT scan. She may also try other medication regimens including nonsteroidal anti-inflammatories if there are signs and symptoms of inflammatory bowel disease. We will continue to monitor her progress in the hospital. Job ID: [id number] DocumentID: [id number] Dictated Date: 11/18/2018 20:00:25 Monotype Machinist Date: 11/18/2018 20:28:28 Dictated By: ROBERTO VASQUEZ MD MTDD
[2018-11-18] MEDS: HYDROcodone/APAP 10 MG/325 MG (LORTAB) TAB PO PRN (21:07)
[2018-11-18] MEDS: ONDANSETRON 4 MG (ZOFRAN) ORAL DISSOLVE TAB PO PRN (21:07)
[2018-11-18] MEDS: cefTRIAXone 1,000 MG/SWFI 10 ML IV PUSH IV SCH ×2 (21:08)
[2018-11-19] VITALS: BP 97/50
[2018-11-19] MEDS: HYDROcodone/APAP 10 MG/325 MG (LORTAB) TAB PO PRN ×5 (01:14→23:51)
[2018-11-19] MEDS: D5 1/2 NS W/KCL 20 MEQ/L 1,000 ML IV SCH ×4 (03:25→20:57)
[2018-11-19 04:00] VITALS: BP 100/54
[2018-11-19 05:18] LABS: HEMOGLOBIN 11.3 G/DL (11.5-16.0); MEAN PLATELET VOLUME 10.6 FL (7.4-10.4); RED CELL DISTRIBUTION WIDTH 12.9 % (10.0-14.5); WHITE BLOOD COUNT 6.3 10^3/uL (4.3-11.0)
[2018-11-19 05:37] LABS: BUN/CREATININE RATIO 3; CALCIUM 8.1 MG/DL (8.5-10.1); CARBON DIOXIDE 22 MMOL/L (21-32); CHLORIDE 108 MMOL/L (98-107); CREATININE SERUM 0.64 MG/DL (0.60-1.30); GFR ESTIMATED > 60; GLUCOSE 104 MG/DL (70-105); POTASSIUM 3.7 MMOL/L (3.6-5.0); SODIUM 136 MMOL/L (135-145)
[2018-11-19] MEDS: CATHETER FLUSH 10 ML SYR IV SCH ×3 (05:50→19:56)
[2018-11-19] MEDS: PRENATAL VITAMIN 1 EA TAB PO SCH (06:29)
[2018-11-19 08:00] VITALS: BP 105/64
[2018-11-19] MEDS: FAMOTIDINE 20MG/2ML IV (PEPCID) IV SCH ×2 (08:16→19:56)
[2018-11-19] MEDS ORDERED: [UNRECOGNIZED DRUG - OTHER] PO SCH (09:00)
[2018-11-19] MEDS ORDERED: PRENATAL VIT PO SCH (09:00)
[2018-11-19] MEDS ORDERED: IRON PO SCH (09:00)
[2018-11-19] MEDS ORDERED: DHA PO SCH (09:00)
[2018-11-19] MEDS: ONDANSETRON 4 MG (ZOFRAN) ORAL DISSOLVE TAB PO PRN (10:26)
[2018-11-19 12:00] VITALS: BP 104/54
--- NOTE | 2018-11-19 14:26 | Progress Note (SOAP) ---
Subjective Date Seen by a Provider: Nov 19, 2018 Time Seen by a Provider: 14:00 Subjective/Events-last exam Patient seen with Dr. Matthews. Patient reports doing better as far as pain. Feels like the pain medication is tolerating her pain. Reports did well with breakfast this morning, but developed abdominal pain, nausea, diarrhea and bloody stool with small amounts of applesauce and tomato soup at lunch. She reports that she feels like the Zofran makes her more nauseous. Tolerating liquids. No fever/chills. Objective Exam Vital Signs Date Time Temp Pulse Resp B/P (MAP) Pulse Ox O2 Delivery O2 Flow Rate FiO2 11/19/18 12:00 97.0 87 18 104/54 (71) 100 Room Air 11/19/18 08:00 98 Room Air 11/19/18 08:00 97.2 99 18 105/64 (78) 100 Room Air 11/19/18 04:00 97.6 62 20 100/54 (69) 98 Room Air 11/19/18 00:00 98.2 86 18 97/50 (66) 99 Room Air 11/18/18 20:00 Room Air 11/18/18 19:42 98.6 82 18 106/62 (77) 100 Room Air 11/18/18 15:38 99.4 76 18 99/55 (70) 99 Room Air I & O 11/19/18 06:59 Intake Total 4820 ml Output Total 4400 ml Balance 420 ml Capillary Refill : Less Than 3 SecondsLess Than 3 Seconds General Appearance: No Apparent Distress, WD/WN Neck: Full Range of Motion, Normal Inspection, Supple Respiratory: Normal Breath Sounds, No Accessory Muscle Use, No Respiratory Distress Cardiovascular: Regular Rate, Rhythm, No Edema Gastrointestinal: normal bowel sounds, soft, tenderness (Right side abdomen.) Extremity: Normal Capillary Refill, Normal Inspection, Normal Range of Motion Neurologic/Psychiatric: Alert, Oriented x3 Skin: Normal Color, Warm/Dry Results Lab Laboratory Tests 11/19/18 05:10: White Blood Count 6.3, Red Blood Count 3.70L, Hemoglobin 11.3L, Hematocrit 34L, Mean Corpuscular Volume 93, Mean Corpuscular Hemoglobin 31, Mean Corpuscular Hemoglobin Concent 33, Red Cell Distribution Width 12.9, Platelet Count 179, Mean Platelet Volume 10.6H, Sodium Level 136, Potassium Level 3.7, Chloride Level 108H, Carbon Dioxide Level 22, Anion Gap 6, Blood Urea Nitrogen < 2L, C reatinine 0.64, Estimat Glomerular Filtration Rate > 60, BUN/Creatinine Ratio 3, Glucose Level 104, Calcium Level 8.1L Microbiology 11/17/18 Fecal Leukocyte Stain - Final, Resulted 11/17/18 Stool Culture, Resulted Pending Assessment/Plan Assessment/Plan Assess & Plan/Chief Complaint A 28 year old female with episodes of rectal bleeding, crampy abdominal pain, diarrhea that is most likely secondary to an inflammatory bowel disease such as Crohn's disease. She is a G5, P2 at 6 weeks 5 days gestation. Will proceed with conservative medical management at this time with pain and nausea medications. Low residue diet. Will have her follow up with a boat buffer plastic at discharge. Clinical Quality Measures DVT/VTE Risk/Contraindication: Risk Factor Score Per Nursin RFS Level Per Nursing on Admit: 2=Moderate OSITO GARNICA GROUND [employer]ES PERSON Nov 19, 2018 14:26
[2018-11-19 15:39] VITALS: BP 107/63
--- NOTE | 2018-11-19 16:07 | Progress Note (SOAP) ---
Subjective Subjective/Events-last exam Afebrile, feeling better, tolerated some breakfast but still has pain and bloody stools. Review of Systems Date Seen by Provider: Nov 19, 2018 Time Seen by Provider: 12:00 Objective Exam Last Set of Vital Signs Vital Signs Date Time Temp Pulse Resp B/P (MAP) Pulse Ox O2 Delivery O2 Flow Rate FiO2 11/19/18 15:39 98.2 90 20 107/63 (78) 100 Room Air Capillary Refill : Less Than 3 SecondsLess Than 3 Seconds I&O Intake and Output 11/19/18 00:00 Intake Total 4520 ml Output Total 4000 ml Balance 520 ml Intake Oral 1520 ml IV Total 3000 ml Output Urine Total 4000 ml # Bowel Movements 7 Daily Weight Change No General: Alert, No Acute Distress Lungs: Clear to Auscultation, Normal Air Movement Heart: Regular Rate, No Murmurs Abdomen: Normal Bowel Sounds, Soft, Other (mild tenderness markedly decreased from yesterday) Neuro: Normal Speech Results/Procedures Lab Laboratory Tests 11/19/18 05:10: White Blood Count 6.3, Red Blood Count 3.70L, Hemoglobin 11.3L, Hematocrit 34L, Mean Corpuscular Volume 93, Mean Corpuscular Hemoglobin 31, Mean Corpuscular Hemoglobin Concent 33, Red Cell Distribution Width 12.9, Platelet Count 179, Mean Platelet Volume 10.6H, Sodium Level 136, Potassium Level 3.7, Chloride Level 108H, Carbon Dioxide Level 22, Anion Gap 6, Blood Urea Nitrogen < 2L, Creatinine 0.64, Estimat Glomerular Filtration Rate > 60, BUN/Creatinine Ratio 3, Glucose Level 104, Calcium Level 8.1L Microbiology 11/17/18 Fecal Leukocyte Stain - Final, Resulted 11/17/18 Stool Culture, Resulted Pending Radiology US ob- 6w5d gestational sac with no pole yet seen GB US unremarkable RLQ US with non-visualization of appendix Assessment/Plan Assessment/Plan (1) Right-sided abdominal pain of unknown cause Status: Acute Assessment & Plan: Severe pain requiring fentanyl for relief, unable to tolerate oral without severe pain. Lipase nml, labs unremarkable. US RLQ with non-visualization of appendix, Surgery consulted. Surgery agrees with most likely inflammatory bowel disease, will work on symptom management in order to be able to d/c home and follow up with GI. (2) Bloody diarrhea Status: Acute Assessment & Plan: Given length of time, suspect possible inflammatory bowel disease, although inflammatory markers not significantly high. Stool cultures pending. Surgery consulted given her RLQ pain as well as bloody stools. (3) Urinary tract infection Status: Acute Assessment & Plan: On treatment prior to admit, having difficulty with oral, treating with ceftriaxone currently. Qualifiers: Qualified Codes: N39.0 - Urinary tract infection, site not specified (4) Status: Acute Assessment & Plan: US with 6w5d gestational sac, HCG increasing appropriately, will need f/u US next week. Qualifiers: Qualified Codes: Z3A.01 - Less than 8 weeks gestation of Clinical Quality Measures DVT/VTE Risk/Contraindication: Risk Factor Score Per Nursin RFS Level Per Nursing on Admit: 2=Moderate ALINE TURCIOS MD Nov 19, 2018 16:07
[2018-11-19] MEDS: PROMETHAZINE 25 MG (PHENERGAN) TAB PO PRN (17:42)
[2018-11-19 19:31] VITALS: BP 107/61
[2018-11-19] MEDS: fentaNYL INJECTION 100 MCG/2 ML AMP IV PRN (20:53)
[2018-11-19] MEDS: cefTRIAXone 1,000 MG/SWFI 10 ML IV PUSH IV SCH ×2 (21:25)
[2018-11-20 00:48] VITALS: BP 99/54
[2018-11-20] MEDS: D5 1/2 NS W/KCL 20 MEQ/L 1,000 ML IV SCH ×2 (02:36→08:23)
[2018-11-20] MEDS: fentaNYL INJECTION 100 MCG/2 ML AMP IV PRN ×2 (02:36→07:48)
[2018-11-20] MEDS: CATHETER FLUSH 10 ML SYR IV SCH (05:19)
[2018-11-20 06:52] LABS: BASOPHILS % (AUTO) 0 % (0-10); EOSINOPHILS # (AUTO) 0.5 10^3/uL (0.0-0.3); EOSINOPHILS % (AUTO) 9 % (0-10); HEMATOCRIT 36 % (35-52); LYMPHOCYTES # (AUTO) 1.3 X 10^3 (1.0-4.0); LYMPHOCYTES % (AUTO) 24 % (12-44); MEAN CORPUSCULAR HEMOGLOBIN 30 PG (25-34); MEAN CORPUSCULAR HGB CONC 33 G/DL (32-36); MEAN CORPUSCULAR VOLUME 91 FL (80-99); MEAN PLATELET VOLUME 11.1 FL (7.4-10.4); MONOCYTES # (AUTO) 0.7 X 10^3 (0.0-1.0); MONOCYTES % (AUTO) 13 % (0-12); NEUTROPHILS # (AUTO) 2.9 X 10^3 (1.8-7.8); NEUTROPHILS % (AUTO) 54 % (42-75); PLATELET COUNT 207 10^3/uL (130-400); RED CELL DISTRIBUTION WIDTH 12.9 % (10.0-14.5); WHITE BLOOD COUNT 5.3 10^3/uL (4.3-11.0)
[2018-11-20 07:11] LABS: BUN/CREATININE RATIO 3; CALCIUM 8.4 MG/DL (8.5-10.1); CARBON DIOXIDE 21 MMOL/L (21-32); CHLORIDE 105 MMOL/L (98-107); CREATININE SERUM 0.61 MG/DL (0.60-1.30); GFR ESTIMATED > 60; GLUCOSE 92 MG/DL (70-105); POTASSIUM 3.7 MMOL/L (3.6-5.0); SODIUM 135 MMOL/L (135-145)
[2018-11-20] MEDS: PRENATAL VITAMIN 1 EA TAB PO SCH (07:48)
[2018-11-20 08:00] VITALS: BP 94/52
--- NOTE | 2018-11-20 10:00 | NUR ---
SOFT BROWN STOOL, IV SITE WITHOUT REDNESS OR SWELLING, C/O ABD PAIN, PRN PAIN MEDS, AT BEDSIDE
[2018-11-20] MEDS: FAMOTIDINE 20MG/2ML IV (PEPCID) IV SCH (10:38)
[2018-11-20] MEDS: HYDROcodone/APAP 10 MG/325 MG (LORTAB) TAB PO PRN (10:38)
[2018-11-20] MEDS ORDERED: PROM25TA14 PO (12:25)
[2018-11-20] MEDS ORDERED: RANI-591 PO (12:25)
[2018-11-20] MEDS ORDERED: HYDR-3820 PO (12:25)
[2018-11-20] MEDS ORDERED: METR-145 PO (12:25)
--- NOTE | 2018-11-20 12:32 | Discharge Instructions ---
Discharge [facility] Discharge Medications New, Converted or Re-Newed RX: Other (Hydrocodone on chart, others transmitted) New Medications: Promethazine HCl (Promethazine Tablet) 25 Mg Tablet 25 MG PO Q6H PRN for NAUSEA/VOMITING for 7 Days, #28 TAB Ranitidine HCl (Ranitidine HCl) 75 Mg Tablet 75 MG PO BID for 7 Days, #14 TAB 0 Refills Hydrocodone/Acetaminophen (Hydrocodon-Acetaminophn 10-325) 1 Each Tablet 1 EA PO Q4H PRN for PAIN-MODERATE for 7 Days, #42 TAB 0 Refills Metronidazole (Metronidazole) 500 Mg Tablet 500 MG PO BID for 7 Days, #14 TAB 0 Refills Continued Medications: Cephalexin (Cephalexin) 500 Mg Capsule 500 MG PO BID for 7 Days, CAP 7 DAY SUPPLY FILLED 11-16-18 Cetirizine HCl (Zyrtec) 10 Mg Tablet 10 MG PO DAILY PRN for ALLERGIES, TAB Levalbuterol Tartrate (Levalbuterol Tartrate Hfa) 15 Gm Hfa.aer.ad 1 PUFF INH Q6H PRN for SHORTNESS OF BREATH, INHALER Vit#84/Iron/FA#1/Dha (Prenate Essential Softgel) 1 Each Capsule 1 CAP PO DAILY, CAP Discontinued Medications: Dicyclomine HCl (Dicyclomine HCl) 20 Mg Tablet 20 MG PO TID PRN for abdominal pain for 3 Days, #10 TAB Patient Instructions Goal/Follow Up Appt: Follow up with Chrystal Colunga on November 25 at 1 pm. Follow up with Dr. Mcpherson as planned. [facility] to [facility]: Inability to keep down medications, uncontrolled pain Activity & Diet Discharge Diet: Eat Small Frequent Meals, Avoid Fatty Foods, Low Residue Activity as Tolerated: Yes ALINE TURCIOS MD Nov 20, 2018 12:32
[2018-11-20] MEDS ORDERED: metroNIDAZOLE 500 MG (FLAGYL) TAB ONE (12:42)
[2018-11-20] MEDS ORDERED: CIPROFLOXACIN 500 MG (CIPRO) TABLET PO ONE (12:42)
[2018-11-20] MEDS: PROMETHAZINE 25 MG (PHENERGAN) TAB PO PRN (12:48)
[2018-11-20 13:35] VITALS: BP 94/52
--- NOTE | 2018-11-20 13:35 | NUR ---
DARINEL VALLEJO demonstrates understanding of discharge instructions and accurately returns instructions upon questioning. Copy of Post-Discharge Instructions and Medication Discharge Instructions given to CLARKE. DARINEL VALLEJO is able to manage continuing needs after discharge. Patients belongings returned to . Skin dry and intact; no breakdown noted. Patient discharged from [facility] on 11/20/18 at 1335. DARINEL VALLEJO left floor via AMBULATORY, accompanied by STAFF AND .
--- NOTE | 2018-11-20 14:21 | Discharge Summary ---
Diagnosis/Chief Complaint Date of Admission Nov 17, 2018 at 21:02 Date of Discharge November 20, 2018 Admission Diagnosis Admission Diagnosis Right sided abdominal pain Bloody diarrhea Vomiting 6 weeks gestation Discharge Diagnosis See problem list Problems/Diagnosis: (1) Right-sided abdominal pain of unknown cause Assessment & Plan: Severe pain requiring fentanyl for relief, unable to tolerate oral without severe pain. Lipase nml, labs unremarkable. US RLQ with non-visualization of appendix, Surgery consulted. Surgery agrees with most likely inflammatory bowel disease, will work on symptom management in order to be able to d/c home and follow up with GI. Status: Acute (2) Bloody diarrhea Assessment & Plan: Given length of time, suspect possible inflammatory bowel disease, although inflammatory markers not significantly high. Stool cultures pending. Surgery consulted given her RLQ pain as well as bloody stools. 11/20 improved but not resolved at d/c. Stool cx and crypto/giardia neg. 7 days of metronidazole on d/c. Needs in to see GI urgently as she continues to need hydrocodone regularly to manage pain. Status: Acute (3) Urinary tract infection Assessment & Plan: On treatment prior to admit, having difficulty with oral, treating with ceftriaxone currently. Resume cephalexin on d/c. Qualifiers: Qualified Codes: N39.0 - Urinary tract infection, site not specified Status: Acute (4) Assessment & Plan: US with 6w5d gestational sac, HCG increasing appropriately, will need f/u US next week. Qualifiers: Qualified Codes: Z3A.01 - Less than 8 weeks gestation of Status: Acute Chief Complaint/HPI Chief Complaint/HPI Abdominal pain- has had pain around umbilicus and down to right pelvis x 4 days. Has had blood in stools since about August, but previous to this was normal BM with blood on stool and some free blood passed along with cramping, but would only last for like a day or so. She has been referred to GI and has not yet seen them. Started with diarrhea a few hours after the pain, started with soft stool, but progressed to watery along with blood and sometimes blood clots. Denies camping, travel, has been eating same foods as rest of family and no one else is sick. Had fever of 99.8 on Friday. Was having cold chills and then feeling super hot in the first couple of days. Was diagnosed with UTI last by her Ob, Dr. Olson, got results on Friday and started yesterday morning. She went to ER in [place] Friday and got dicyclomine and rocephin and she was discharged from there, got her Keflex and used dicyclomine a couple of times and then came back to ER due to worsening stomach cramping. Denies rashes, joint pains. She admits occasional blurry vision. Has had a lot of UTIs throughout her whole life. No known family history of GI disease, but she does not have contact with her biological father and her mother has a lot of medical problems and she is not sure what all she has. She does have rheumatoid arthritis. , LMP October 05. 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 Second time she chose to proceed with D&C right away. Discharge Summary-Simple/Stand Consultations Discharge Physical Examination Allergies: Coded Allergies: No Known Drug Allergies (Unverified , 08/05/18) Vitals & I&Os Vital Sign - Last 12Hours Date Time Temp Pulse Resp B/P (MAP) Pulse Ox O2 Delivery O2 Flow Rate FiO2 11/20/18 13:35 91 18 94/52 98 Room Air 11/20/18 08:00 98.8 Intake and Output0 11/20/18 00:00 Intake Total 3490 ml Output Total 3925 ml Balance -435 ml General Appearance: Alert, No Acute Distress Respiratory: Clear to Auscultation, Normal Air Movement Cardiovascular: Regular Rate, No Murmurs Abdominal: Normal Bowel Sounds, Soft, Other (diffuse moderate ttp) Neuro: Normal Speech Psych/Mental Status: Mental Status NL Hospital Course See final discharge diagnosis. Labs Laboratory Tests Test 11/19/18 05:10 11/20/18 05:43 Range/Units White Blood Count 6.3 5.3 4.3-11.0 10^3/uL Red Blood Count 3.70 L 3.99 L 4.35-5.85 10^6/uL Hemoglobin 11.3 L 12.0 11.5-16.0 G/DL Hematocrit 34 L 36 35-52 % Mean Corpuscular Volume 93 91 80-99 FL Mean Corpuscular Hemoglobin 31 30 25-34 PG Mean Corpuscular Hemoglobin Concent 33 33 32-36 G/DL Red Cell Distribution Width 12.9 12.9 10.0-14.5 % Platelet Count 179 207 130-400 10^3/uL Mean Platelet Volume 10.6 H 11.1 H 7.4-10.4 FL Sodium Level 136 135 135-145 MMOL/L Potassium Level 3.7 3.7 3.6-5.0 MMOL/L Chloride Level 108 H 105 98-107 MMOL/L Carbon Dioxide Level 22 21 21-32 MMOL/L Anion Gap 6 9 5-14 MMOL/L Blood Urea Nitrogen < 2 L < 2 L 7-18 MG/DL Creatinine 0.64 0.61 0.60-1.30 MG/DL Estimat Glomerular Filtration Rate > 60 > 60 BUN/Creatinine Ratio 3 3 Glucose Level 104 92 70-105 MG/DL Calcium Level 8.1 L 8.4 L 8.5-10.1 MG/DL Neutrophils (%) (Auto) 54 42-75 % Lymphocytes (%) (Auto) 24 12-44 % Monocytes (%) (Auto) 13 H 0-12 % Eosinophils (%) (Auto) 9 0-10 % Basophils (%) (Auto) 0 0-10 % Neutrophils # (Auto) 2.9 1.8-7.8 X 10^3 Lymphocytes # (Auto) 1.3 1.0-4.0 X 10^3 Monocytes # (Auto) 0.7 0.0-1.0 X 10^3 Eosinophils # (Auto) 0.5 H 0.0-0.3 10^3/uL Basophils # (Auto) 0.0 0.0-0.1 10^3/uL Radiology Reviewed US ob- 6w5d gestational sac with no pole yet seen GB US unremarkable RLQ US with non-visualization of appendix Discharge Instructions to patient/family Please see electronic discharge instructions given to patient. Discharge Medications Reviewed and agree with Discharge Medication list on patient's Discharge Instruction sheet Clinical Quality Measures DVT/VTE Risk/Contraindication: Risk Factor Score Per Nursin RFS Level Per Nursing on Admit: 2=Moderate Copy Copies To 1: Chrystal Reyes APRN; JAE OLSON BETHANY N MD Nov 20, 2018 14:21
[2018-11-20] MEDS ORDERED: metroNIDAZOLE 500 MG (FLAGYL) TAB PO SCH (21:00)
[2018-11-20] MEDS ORDERED: CIPROFLOXACIN 500 MG (CIPRO) TABLET PO SCH (21:00)
== END 2018-11-20 12:26 | disposition home or self-care (01) ==
LOC: EDUNIT# 17:00 → ER 17:01 → UNDOADMOB 21:02 → 4TH 21:02 → UNDODISOB 11-20 13:35
PROVIDERS: ADMIT Family Medicine; ATTEND Family Medicine
DX: O99.89 Other specified diseases and conditions complicating pregnancy, childbirth and the puerperium (principal); R10.31 Right lower quadrant pain; R19.7 Diarrhea, unspecified; O23.41 Unspecified infection of urinary tract in pregnancy, first trimester; O99.511 Diseases of the respiratory system complicating pregnancy, first trimester; J45.909 Unspecified asthma, uncomplicated; Z3A.01 Less than 8 weeks gestation of pregnancy
CPT/HCPCS: 36415; 76705; 76801; 80048; 80053; 83690; 83735; 84702; 85025; 85027; 85652; 86141; 87015; 87045; 87046; 87177; 87328; 87329; 87899; 89055; 96374; 96375; G0378

== ENCOUNTER → 2019-02-24 | Outpatient (CLI) | payer MEDICAID ==
[~2019-02-24] MED LIST changes: +CETI10TA20 PO; +HYDR-3820 PO; +LEVA15HF5 INH; +METR-145 PO; +PREN1CAP PO; +PROM25TA14 PO; +RANI-591 PO
--- NOTE | 2019-02-24 13:49 | Diagnostic Imaging Report ---
INDICATION: survey. TECHNIQUE: Multiple Real-time grayscale images were obtained over the gravid uterus. COMPARISON: 11/17/2018. FINDINGS: The previous OB ultrasound exam of 11/17/2018 noted a gestational sac within the uterus correlating to a 6 week 5 day . There was no pole identified, however. On this study, there is a single live fetus in variable presentation. heart motion was noted and a rate of 133 BPM was recorded. There are no abnormalities identified with certainty but the renal pelves are somewhat prominent measuring approximately 4 mm. There is no sign of ascites and the amniotic fluid volume is within normal limits. The growth parameters are fairly uniform. The placenta is anterior and there is no previa. The cervix is identified and measures 4.0 cm in length. IMPRESSION: 1. There is a single live fetus of approximately 20 weeks 4 days gestation +/- 1.5 weeks. The EDC is 07/10/2019. 2. There are no abnormalities identified; however, the renal pelves do seem prominent. It may prove worthwhile to have a short-term (2-4 week) followup OB ultrasound exam for further evaluation. 3. The growth parameters are fairly uniform. Biometrical measurements are as follows: Biparietal 4.62 cm, age 20 weeks 0 days. Head circumference 17.78 cm, age 20 weeks 2 days. Abdominal circumference 15.87 cm, age 21 weeks 0 days. Femur length 3.45 cm, age 21 weeks 0 days. Sonographic estimate age: 20 weeks 4 days. Sonographic estimated date of delivery: 07/10/2019. Estimated Weight: 380 gm (+/- 56 gm). LMP percentile: 76%. heart rate: 133 beats per minute. number: 1 of 1. IMPRESSION: Dictated by: Dictated on workstation # [id number]
== END ==
LOC: RAD 10:11
PROVIDERS: ATTEND Obstetrics & Gynecology
DX: Z34.92 Encounter for supervision of normal pregnancy, unspecified, second trimester (principal); Z3A.20 20 weeks gestation of pregnancy
CPT/HCPCS: 76805

== ENCOUNTER 2019-03-29 09:31 | Outpatient (CLI) | payer MEDICAID ==
[~2019-03-29] VITALS: Ht 154.9 cm; Wt 59.1 kg
--- NOTE | 2019-03-29 09:25 | NUR ---
DARINEL VALLEJO presented to unit via ambulation, accompanied by s/o, with c/o spotting since 2329 last noc. Pt. weighed, gowned, voided, and to bed. EFHM and TOCO applied, VS taken. pt. oriented to bed controls, call light, TV, heat, and A/C controls.
--- NOTE | 2019-03-29 09:27 | NUR ---
on unit. reviewed pt's admission c/o's. orders received.
--- NOTE | 2019-03-29 09:30 | NUR ---
pt reports spotting that started @ 2330 after using BR. cleaned house yesterday. went to bed. woke up to use BR @ 2330, 0430, & 0700- blood noted with wiping. denies UA sx's. reports chronic UTI hx, takes Macrobid daily. reports pain in lower Rt.abd, describes as "torn muscle"- rates @ 9 on 1-10 scale. reports decreased movement x 24 hours- approx 5 kicks noted during that time. states lower abd cramping & back pain prior to arrival to hospital.
--- NOTE | 2019-03-29 09:47 | NUR ---
ericit cath specimen collected by this RN while using sterile procedure. specimen labeled and sent to lab. Addendum: 03/29/19 at 1030 by SCARLETT PETERSON RN no vaginal bleeding noted while obtaining UA specimen. reports last intercourse 1100 yesterday.
[2019-03-29 10:05] LABS: BILIRUBIN,URINE NEGATIVE (NEGATIVE); CLARITY,URINE CLEAR; COLOR,URINE YELLOW; GLUCOSE, URINE (UA) NEGATIVE (NEGATIVE); KETONES,URINE NEGATIVE (NEGATIVE); LEUKOCYTE ESTERASE ,URINE 2+ (NEGATIVE); NITRITE,URINE NEGATIVE (NEGATIVE); PH,URINE 7 (5-9); PROTEIN,URINE NEGATIVE (NEGATIVE)
[2019-03-29 10:13] LABS: BACTERIA,URINE FEW /HPF
[2019-03-29 10:16] VITALS: BP 116/66
[2019-03-29] MEDS ORDERED: NITR-65 PO (10:33)
--- NOTE | 2019-03-29 10:53 | NUR ---
was called with UA & ultrasound results. dismissal orders received.
--- NOTE | 2019-03-29 10:56 | NUR ---
monitors dc'd.. monitor tracing reviewed. FHR 140's. appropriate variability noted for current gestation. no ctx's noted.
[2019-03-29] MEDS ORDERED: CEPHALEXIN 250 MG (KEFLEX) CAP PO ONE (11:00)
--- NOTE | 2019-03-29 11:09 | NUR ---
dismissal instructions given, verbalizes understanding. instructed pt to hold daily Macrobid until Keflex Rx completed- then restart Macrobid. instructed pt to schedule follow up with for next week & pelvic rest until follow up appointment. signature page signed, placed on chart.
--- NOTE | 2019-03-29 11:11 | NUR ---
pt ambulated to private vehicle with s/o @ side. pt stable with no sx's of distress noted.
--- NOTE | 2019-03-29 12:26 | Diagnostic Imaging Report ---
INDICATION: Bleeding. TECHNIQUE: Multiple Real-time grayscale images were obtained of the gravid uterus in various projections FINDINGS: There is single live intrauterine . The placenta is anterior. The cervical length is 4.2 cm. The heart rate is 146 BPM. The amniotic fluid index is 19.4 cm. IMPRESSION: Single living intrauterine as described. Dictated by: Dictated on workstation # [id number]
== END 2019-03-29 11:11 | disposition home or self-care (01) ==
LOC: WSo 09:31 → LDRP 09:32 → WSo 11:11
PROVIDERS: ATTEND Obstetrics & Gynecology
DX: O26.859 Spotting complicating pregnancy, unspecified trimester (principal); Z3A.00 Weeks of gestation of pregnancy not specified
CPT/HCPCS: 76815; 81000; 87088; 99213

== ENCOUNTER → 2019-04-12 | Outpatient (CLI) | payer MEDICAID ==
[~2019-04-12] MED LIST changes: +NITR-65 PO
== END ==
LOC: LAB FS 15:25
PROVIDERS: ATTEND Nurse Practitioner Women's Health
DX: K92.1 Melena (principal)
CPT/HCPCS: 87015; 87045; 87046; 87899

== ENCOUNTER → 2019-04-15 | Outpatient (CLI) | payer MEDICAID | LOC: LAB FS 16:08 | PROVIDERS: ATTEND Nurse Practitioner Women's Health | DX: O26.899 Other specified pregnancy related conditions, unspecified trimester (principal); Z3A.00 Weeks of gestation of pregnancy not specified | CPT/HCPCS: 87088 ==

== ENCOUNTER → 2019-04-21 | Outpatient (CLI) | payer MEDICAID ==
--- NOTE | 2019-04-21 16:27 | Diagnostic Imaging Report ---
INDICATION: Follow-up fluid. TECHNIQUE: Multiple real-time grayscale images were obtained over the gravid uterus. Views of the adnexa were also performed. COMPARISON: 03/29/2019. FINDINGS: A single, live intrauterine gestation is visualized in cephalic presentation with a heart rate of 161 beats per minute. MOMO is 9.3 cm, previously 19.4 cm. A formal anatomic survey was not performed; however, no obvious anatomic anomalies are identified. The placenta is anterior and not low lying. The cervix measures 4.6 cm without evidence of funneling. Views of the bilateral adnexa demonstrate no acute abnormalities. IMPRESSION: 1. Single live intrauterine gestation in cephalic presentation with a heart rate of 161 beats per minute. 2. The MOMO is 9.3 on today's exam, previously measuring 19.4 cm. This disparity may represent differences in technique. Recommend close follow-up. Dictated by: Dictated on workstation # [id number]
== END ==
LOC: RAD 10:18
PROVIDERS: ATTEND Nurse Practitioner Women's Health
DX: Z34.90 Encounter for supervision of normal pregnancy, unspecified, unspecified trimester (principal); Z3A.00 Weeks of gestation of pregnancy not specified
CPT/HCPCS: 76816

== ENCOUNTER → 2019-05-28 | Outpatient (CLI) | payer MEDICAID ==
--- NOTE | 2019-05-28 16:54 | Diagnostic Imaging Report ---
INDICATION: growth and biophysical profile. TECHNIQUE: Multiple real-time grayscale images were obtained over the gravid uterus. COMPARISON: 04/21/2019. FINDINGS: Single live intrauterine fetus is seen measuring 35 weeks 1 day in size with sonographic EDC of 07/01/2019. Amniotic fluid index is 16.36 cm. heart rate is 125 BPM. Fetus scored 2/2 in movement and posture and tone as well as amniotic fluid. Fetus scored 0/2 in breathing. Biometrical measurements are as follows: Biparietal 8.29 cm, age 33 weeks 3 days. Head circumference 32.10 cm, age 36 weeks 2 days. Abdominal circumference 31.76 cm, age 35 weeks 5 days. Femur length 6.80 cm, age 35 weeks 0 days. Sonographic estimate age: 35 weeks 1 days. Sonographic estimated date of delivery: 07/12/2019. Estimated Weight: 2641 gm (+/- 386 gm). LMP percentile: 89%. heart rate: 125 beats per minute. number: 1 of 1. IMPRESSION: Single live intrauterine fetus measuring 35 weeks 1 day in size, as above. biophysical profile score was 6/8 with score of 0 for breathing. Consider follow-up, as clinically warranted. Dictated by: Dictated on workstation # [id number]
== END ==
LOC: RAD 14:31
PROVIDERS: ATTEND Obstetrics & Gynecology
DX: O99.613 Diseases of the digestive system complicating pregnancy, third trimester (principal); O28.8 Other abnormal findings on antenatal screening of mother; O09.90 Supervision of high risk pregnancy, unspecified, unspecified trimester; Z3A.32 32 weeks gestation of pregnancy
CPT/HCPCS: 76805; 76819

== ENCOUNTER → 2019-06-14 | Outpatient (CLI) | payer MEDICAID ==
[~2019-06-14] MED LIST changes: -RANI-591 PO; +RANI-603 PO
--- NOTE | 2019-06-14 13:52 | Diagnostic Imaging Report ---
INDICATION: High-risk . FINDINGS: Biophysical profile was performed. There is a single live fetus in a cephalic presentation. heart rate was recorded at 126 BPM. Amniotic fluid index is 14.5 cm. Biophysical profile score 6/8. 2-point deduction was given for lack of breathing movements visualized. IMPRESSION: Biophysical profile score 6/8. Dictated by: Dictated on workstation # [id number]
== END ==
LOC: RAD 11:51
PROVIDERS: ATTEND Nurse Practitioner Women's Health
DX: O99.613 Diseases of the digestive system complicating pregnancy, third trimester (principal); O09.93 Supervision of high risk pregnancy, unspecified, third trimester; Z3A.35 35 weeks gestation of pregnancy
CPT/HCPCS: 76819

== ENCOUNTER 2019-06-24 14:12 | Outpatient (CLI) | payer MEDICAID ==
[~2019-06-24] VITALS: Ht 154.9 cm; Wt 65.1 kg
[2019-06-24] MEDS ORDERED: BUTA1CAP17 PO ×2 (14:25)
[2019-06-24] MEDS ORDERED: OMEP20TA33 PO ×2 (14:25)
[2019-06-24 14:35] VITALS: BP 119/72
== END 2019-06-24 14:38 | disposition home or self-care (01) ==
LOC: PREOP 14:12
PROVIDERS: ATTEND Obstetrics & Gynecology
DX: Z01.818 Encounter for other preprocedural examination (principal)
CPT/HCPCS: 87081

== ENCOUNTER 2019-06-25 05:40 | Inpatient (IN) | payer MEDICAID ==
[~2019-06-25] VITALS: Ht 155 cm; Wt 65.1 kg
[2019-06-25] VITALS (10 sets, daily range): BP systolic 91–120; BP diastolic 51–77
--- NOTE | 2019-06-25 05:35 | NUR ---
DARINEL MOSHER presented to unit via AMBULATION from HOME, accompanied by PAVEL, for. DARINEL MOSHER weighed, gowned, voided, and to bed. EFHM and TOCO applied, VS taken. DARINEL MOSHER oriented to bed controls, call light, TV, heat, and A/C controls.
[~2019-06-25 05:40] MED LIST changes: +BUTA1CAP17 PO; +CITRIC ACID/SOB CIT (BICITRA) 30 ML UDC ONE; +FAMOTIDINE 20MG/2ML IV (PEPCID) ONE; +LACTATED RINGERS 1,000 ML IV ONE; +METOCLOPRAMIDE INJ 10 MG/2 ML (REGLAN) ONE; +OMEP20TA33 PO; +WATER (STERILE) FOR INJECTION 10 ML ONE; +ceFAZolin INJECTION 1,000 MG ONE
[2019-06-25] MEDS ORDERED: ceFAZolin INJECTION 1,000 MG in WATER (STERILE) FOR INJECTION 10 ML IV ONE (05:45)
[2019-06-25] MEDS ORDERED: LACTATED RINGERS 1,000 ML IV PRN ×2 (05:50)
[2019-06-25] MEDS ORDERED: FAMOTIDINE 20MG/2ML IV (PEPCID) IV ONE (06:00)
[2019-06-25] MEDS ORDERED: METOCLOPRAMIDE INJ 10 MG/2 ML (REGLAN) IV ONE (06:00)
[2019-06-25] MEDS ORDERED: CITRIC ACID/SOB CIT (BICITRA) 30 ML UDC PO ONE (06:00)
[2019-06-25] MEDS ORDERED: CATHETER FLUSH 10 ML SYR IV PRN (06:00)
[2019-06-25 06:29] LABS: BASOPHILS % (AUTO) 0 % (0-10); EOSINOPHILS # (AUTO) 0.1 10^3/uL (0.0-0.3); EOSINOPHILS % (AUTO) 1 % (0-10); HEMATOCRIT 29 % (35-52); HEMOGLOBIN 9.1 G/DL (11.5-16.0); LYMPHOCYTES # (AUTO) 1.5 X 10^3 (1.0-4.0); LYMPHOCYTES % (AUTO) 13 % (12-44); MEAN CORPUSCULAR HEMOGLOBIN 26 PG (25-34); MEAN CORPUSCULAR HGB CONC 32 G/DL (32-36); MEAN CORPUSCULAR VOLUME 81 FL (80-99); MEAN PLATELET VOLUME 10.1 FL (7.4-10.4); MONOCYTES % (AUTO) 8 % (0-12); NEUTROPHILS % (AUTO) 77 % (42-75); PLATELET COUNT 293 10^3/uL (130-400); RED CELL DISTRIBUTION WIDTH 14.4 % (10.0-14.5); WHITE BLOOD COUNT 11.6 10^3/uL (4.3-11.0)
[2019-06-25] MEDS ORDERED: fentaNYL INJECTION 100 MCG/2 ML AMP ONE (06:34)
[2019-06-25] MEDS ORDERED: OXYTOCIN PRE-MIX DRIP 1,000 ML IV ONE (07:01)
[2019-06-25 07:02] LABS: BILIRUBIN,URINE NEGATIVE (NEGATIVE); CLARITY,URINE CLEAR; COLOR,URINE YELLOW; GLUCOSE, URINE (UA) NEGATIVE (NEGATIVE); KETONES,URINE NEGATIVE (NEGATIVE); LEUKOCYTE ESTERASE ,URINE 1+ (NEGATIVE); NITRITE,URINE NEGATIVE (NEGATIVE); PROTEIN,URINE NEGATIVE (NEGATIVE)
[2019-06-25 07:15] LABS: BACTERIA,URINE FEW /HPF
[2019-06-25] MEDS ORDERED: ONDANSETRON 4 MG/2 ML (SDV) Z0FRAN ONE (07:40)
[2019-06-25] MEDS ORDERED: ROPIVACAINE 5MG/ML 30ML VIAL ONE (07:42)
[2019-06-25] MEDS ORDERED: ONDANSETRON 4 MG/2 ML (SDV) Z0FRAN IVP PRN (08:45)
--- NOTE | 2019-06-25 09:03 | Cesarean Section Operative ---
Procedure Procedure Note Pre-operative Diagnosis: Samreen Holley is a 29 /Para 3/ 2,Gestational Age 37 4/7 weeks with previous section, labor, vaginal bleeding and colitis flare Post-operative Diagnosis: same Procedure: repeat low transverse section Physician: JAE OLSON Estimated blood loss: 600 mL Disposition: stable Findings: Viable male , Apgars 8/9, weight 7#2ounces, intact placenta, 3vc, normal appearing uterus, tubes, and ovaries. Indications:Samreen Holley is a 29 /Para 3/ 2,Gestational Age 37 4/7 weeks with previous section, labor, vaginal bleeding and colitis flare Samreen has a suspected history of chron's. She was to have had diagnostic colonoscopy when she found out she was . has been complicated by recurrent UTI, and has had an early mild flare of colitis. she has not been medicated but she has had a recent flare causing bloody diarrhea and contractions. These have gotten progressively worse and are now causing cervical change with bleeding. The decision is made to proceed with section. She has had ultrasounds that have shown adequate growth. Procedure Details: The patient was seen in pre-op and the procedure was discussed with the patient in full, including the risks, benefits, and alternatives. All questions were answered. The patient was taken to the operating room and a time out was performed, verifying patient and procedure. After spinal anesthesia was placed by our anesthesia colleagues, the patient was placed in the dorsal supine with leftward tilt for uterine displacement.~ Her abdomen was then prepped and draped in the typical sterile fashion. A Pfannenstiel skin incision was made using a scalpel and carried down through the underlying fascia. The fascia was incised in the midline and tented up using Conrad clamps. On both the inferior and superior fascia side the rectus muscle was dissected off bluntly and sharply using Rivas scissors. There were fairly dense adhesions of the fascia to the underlying muscle. The peritoneum was identified and entered bluntly in the midline. This was then stretched laterally using manual strength. After entering the abdominal cavity and confirming lack of intraperitoneal adhesions, a large Kristopher retractor was placed and the lower uterine segment was visualized. A bladder flap was created with the use of Metzenbaum scissors. There were vesicouterine adhesions and the bladder was pushed back. ~ A scalpel was utilized to make a low transverse uterine incision. Amniotomy was performed with an Allis clamp with return of clear fluid. The 's head was grasped and brought to the level of the incision. Fundal pressure was applied and infant was delivered without difficulty. Mouth and nares were suctioned with bulb suction. After the umbilical cord was clamped and cut, the infant was handed off to the pediatric staff. A sample of cord blood was then obtained. The placenta was delivered intact via uterine massage. The uterus was cleared of all clots and debris. The uterine incision was closed using 0 Vicryl in a running locked fashion. A second imbricated layer was placed using 0 Vicryl in a running fashion as well. The uterus was flexed forward and the posterior rectouterine space was inspected and cleared of all clots and debris. Again the hysterotomy site was examined and hemostasis was observed. The bilateral tubes and ovaries appeared normal. The gutters were cleared of all clots and debris. A final check of the uterine incision showed it to be hemostatic. The peritoneum was closed using 3-0 Vicryl in a running fashion. The fascia was closed with 0 Vicryl in a running fashion. The subcutaneous space was hemostatic, and irrigated. The subcutaneous space was closed with 3-0 Vicryl in several single interrupted stitches. The skin was then closed using 4-0 Monocryl in a running subcuticular fashion. The skin edges were reapproximated together and were hemostatic. A pressure dressing was applied. All sponge, lap and needle counts were correct at the end of the procedure per nursing. Vitals - Labs Vital Signs - I&O Vital Signs Date Time Temp Pulse Resp B/P (MAP) Pulse Ox O2 Delivery O2 Flow Rate FiO2 06/25/19 08:51 36.2 16 104/65 (78) 98 Room Air 06/25/19 08:51 Room Air 06/25/19 08:36 Room Air 06/25/19 08:36 35.9 16 113/70 (84) 99 Room Air 06/25/19 06:07 36.4 96 18 97 Room Air I & O 06/25/19 07:00 Intake Total 1000 ml Balance 1000 ml Labs Laboratory Tests 06/25/19 05:40: Urine Color YELLOW, Urine Clarity CLEAR, Urine pH 7.0, Urine Specific [place] 1.015L, Urine Protein NEGATIVE, Urine Glucose (UA) NEGATIVE, Urine Ketones NEGATIVE, Urine Nitrite NEGATIVE, Urine Bilirubin NEGATIVE, Urine Urobilinogen 0.2, Urine Leukocyte Esterase 1+H, Urine RBC (Auto) NEGATIVE, Urine RBC NONE, Urine WBC 10-25H, Urine Squamous Epithelial Cells 5-10, Urine Crystals NONE, Urine Bacteria FEWH, Urine Casts NONE, Urine Mucus NEGATIVE, Urine Culture Indicated YES 06/25/19 06:15: White Blood Count 11.6H, Red Blood Count 3.53L, Hemoglobin 9.1L, Hematocrit 29L, Mean Corpuscular Volume 81, Mean Corpuscular Hemoglobin 26, Mean Corpuscular Hemoglobin Concent 32, Red Cell Distribution Width 14.4, Platelet Count 293, Mean Platelet Volume 10.1, Neutrophils (%) (Auto) 77H, Lymphocytes (%) (Auto) 13, Monocytes (%) (Auto) 8, Eosinophils (%) (Auto) 1, Basophils (%) (Auto) 0, Ne utrophils # (Auto) 9.0H, Lymphocytes # (Auto) 1.5, Monocytes # (Auto) 1.0, Eosinophils # (Auto) 0.1, Basophils # (Auto) 0.0 JAE OLSON DO Jun 25, 2019 09:03
[2019-06-25] MEDS ORDERED: HYDROmorphone 2 MG/ML VIAL (DILAUDID) IV NR (09:07)
[2019-06-25] MEDS ORDERED: KETOROLAC 30 MG/ML VIAL IVP NR (09:09)
[2019-06-25] MEDS ORDERED: OXYTOCIN PRE-MIX DRIP 500 ML IV SCH (09:26)
[2019-06-25] MEDS ORDERED: MEASLES,MUMPS,RUBELLA 1 EA INJ SC SCH (09:30)
[2019-06-25] MEDS ORDERED: TETANUS,DIPTH,PERTUSS P/F (BOOSTRIX) 0.5 ML VIAL IM SCH (09:30)
[2019-06-25] MEDS: KETOROLAC 30 MG/ML VIAL IV SCH ×3 (11:11→23:57)
[2019-06-25] MEDS: ACETAMINOPHEN 500 MG TAB (TYLENOL) PO SCH ×2 (12:38→21:51)
[2019-06-25] MEDS ORDERED: hydrALAZINE (APESOLINE) 20 MG/ML VIAL IV ONE (14:00)
[2019-06-25] MEDS: morphine INJ 4 MG/ML 1 ML (VIAL/SYRINGE) IVP PRN ×2 (15:20→19:21)
[2019-06-25] MEDS: DOCUSATE SODIUM 100 MG (COLACE) CAP PO SCH (20:24)
[2019-06-26 03:46] VITALS: BP 103/61
[2019-06-26] MEDS: KETOROLAC 30 MG/ML VIAL IV SCH (05:54)
[2019-06-26] MEDS: ACETAMINOPHEN 500 MG TAB (TYLENOL) PO SCH ×3 (05:54→21:18)
[2019-06-26] MEDS: morphine INJ 4 MG/ML 1 ML (VIAL/SYRINGE) IVP PRN (05:54)
[2019-06-26 07:00] LABS: BASOPHILS % (AUTO) 0 % (0-10); EOSINOPHILS # (AUTO) 0.1 10^3/uL (0.0-0.3); EOSINOPHILS % (AUTO) 1 % (0-10); HEMATOCRIT 25 % (35-52); HEMOGLOBIN 7.7 G/DL (11.5-16.0); LYMPHOCYTES # (AUTO) 1.4 X 10^3 (1.0-4.0); LYMPHOCYTES % (AUTO) 13 % (12-44); MEAN CORPUSCULAR HEMOGLOBIN 26 PG (25-34); MEAN CORPUSCULAR HGB CONC 31 G/DL (32-36); MEAN CORPUSCULAR VOLUME 83 FL (80-99); MEAN PLATELET VOLUME 10.5 FL (7.4-10.4); MONOCYTES # (AUTO) 0.9 X 10^3 (0.0-1.0); MONOCYTES % (AUTO) 9 % (0-12); NEUTROPHILS # (AUTO) 7.8 X 10^3 (1.8-7.8); NEUTROPHILS % (AUTO) 77 % (42-75); PLATELET COUNT 240 10^3/uL (130-400); RED CELL DISTRIBUTION WIDTH 14.3 % (10.0-14.5); WHITE BLOOD COUNT 10.2 10^3/uL (4.3-11.0)
[2019-06-26 08:00] VITALS: BP 106/62
--- NOTE | 2019-06-26 09:00 | NUR ---
ASSESSMENT COMPLETED. ENCOURAGED AMBULATION X4 IN THE [facility] TODAY. SET UP SHOWER.
--- NOTE | 2019-06-26 09:24 | Anesthesia-Regional Post-Op ---
Regional Patient Condition Mental Status: Alert, Oriented x3 Circulation: Same as Pre-Op Headache: Absent Sensation: Full Recovery Motor Block: Absent Post Op Complications Complications None Follow Up Care/Instructions Patient Instructions None needed. Anesthesia/Patient Condition Patient is doing well, no complaints, stable vital signs, no apparent adverse anesthesia problems. No complications reported per nursing. D/C home per [facility] Criteria: GABRIEL Waller CRNA Jun 26, 2019 09:24
[2019-06-26] MEDS: DOCUSATE SODIUM 100 MG (COLACE) CAP PO SCH ×2 (10:00→21:18)
--- NOTE | 2019-06-26 10:01 | NUR ---
OXYIR 5 MG GIVEN FOR C/O ABD PAIN.
[2019-06-26] MEDS: IBUPROFEN 600 MG (MOTRIN) TAB PO SCH ×3 (10:04→21:18)
--- NOTE | 2019-06-26 10:30 | NUR ---
SHOWERED WITHOUT PROBLEMS. OUT TO AMBULATE IN THE [facility].
[2019-06-26 12:00] VITALS: BP 99/57
--- NOTE | 2019-06-26 12:40 | NUR ---
DR. OLSON CALLED TO CHECK ON PT. WILL ROUND LATER TODAY.
--- NOTE | 2019-06-26 14:05 | NUR ---
OXYIR GIVEN FOR C/O ABD PAIN. ICE PACK FRESHENED. PT HAS BEEN OUT IN THE [facility] AMBULATING.
[2019-06-26] MEDS ORDERED: SIMETHICONE 80 MG (MYLICON) CHEW PO PRN (14:30)
--- NOTE | 2019-06-26 14:30 | NUR ---
PT HAS HAD HER TDAP.
[2019-06-26 16:30] VITALS: BP 103/75
--- NOTE | 2019-06-26 16:30 | NUR ---
VSS. RESTING IN BED. S.O. AND IN ROOM. REMINDED PT TO SPLINT ABDOMEN IF COUGHS. LANOLIN GIVEN. PT PUMPING BREASTS BUT FEEDING INFANT A BOTTLE.
[2019-06-26] MEDS ORDERED: SIME80TA16 PO ×2 (17:27)
[2019-06-26] MEDS ORDERED: ACET-93 PO ×2 (17:27)
[2019-06-26] MEDS ORDERED: OXC5T PO ×2 (17:27)
[2019-06-26] MEDS ORDERED: FERR-84 PO ×2 (17:27)
[2019-06-26] MEDS ORDERED: IBUP-844 PO ×2 (17:27)
[2019-06-26] MEDS ORDERED: DOCU-244 PO ×2 (17:27)
--- NOTE | 2019-06-26 17:28 | Postpartum Progress Note ---
Post Op Post-operative Day #1 Subjective: Patient is without complaints. Ambulating, voiding after blount removed. Tolerating a regular diet without nausea or vomiting. Normal lochia. Pain is well controlled with oral pain medications. Passing flatus. breast feeding Objective: 06/26/19 06/26/19 06/26/19 08:00 12:00 16:30 Temp 36.7 36.7 36.8 Pulse 98 100 78 Resp 22 20 18 B/P (MAP) 106/62 (77) 99/57 (71) 103/75 (84) Pulse Ox 98 98 100 O2 Delivery Room Air Room Air Room Air 06/26/19 00:00 Intake Total 500 ml Output Total 900 ml Balance -400 ml Laboratory Tests Test 06/26/19 06:05 Range/Units White Blood Count 10.2 4.3-11.0 10^3/uL Red Blood Count 2.98 L 4.35-5.85 10^6/uL Hemoglobin 7.7 L 11.5-16.0 G/DL Hematocrit 25 L 35-52 % Mean Corpuscular Volume 83 80-99 FL Mean Corpuscular Hemoglobin 26 25-34 PG Mean Corpuscular Hemoglobin Concent 31 L 32-36 G/DL Red Cell Distribution Width 14.3 10.0-14.5 % Platelet Count 240 130-400 10^3/uL Mean Platelet Volume 10.5 H 7.4-10.4 FL Neutrophils (%) (Auto) 77 H 42-75 % Lymphocytes (%) (Auto) 13 12-44 % Monocytes (%) (Auto) 9 0-12 % Eosinophils (%) (Auto) 1 0-10 % Basophils (%) (Auto) 0 0-10 % Neutrophils # (Auto) 7.8 1.8-7.8 X 10^3 Lymphocytes # (Auto) 1.4 1.0-4.0 X 10^3 Monocytes # (Auto) 0.9 0.0-1.0 X 10^3 Eosinophils # (Auto) 0.1 0.0-0.3 10^3/uL Basophils # (Auto) 0.0 0.0-0.1 10^3/uL Physical Exam: General - Alert and oriented, no apparent distress Abdomen - Soft, appropriately tender to palpation, non-distended, fundus firm at umbilicus Incision - clean, dry and intact; no erythema or induration, no drainage Extremities - no edema, negative Palmira's bilaterally Assessment: 1 post-operative day # 1, status post RLTCS. Recovering well, hemodynamically stable 2. antepartum and Acute blood loss anemia 3. colitis (will refer for colonoscopy at later date and then GI as required) [] Plan: Routine post-operative care. Encourage breast feeding. Encourage ambulation. VTE prophylaxis: SCDs. Ferrous sulfate supplementation. Plan for discharge [] Vitals - Labs Vital Signs - I&O Vital Signs Date Time Temp Pulse Resp B/P (MAP) Pulse Ox O2 Delivery O2 Flow Rate FiO2 06/26/19 16:30 36.8 78 18 103/75 (84) 100 Room Air 06/26/19 12:00 36.7 100 20 99/57 (71) 98 Room Air 06/26/19 08:00 36.7 98 22 106/62 (77) 98 Room Air 06/26/19 03:46 36.3 100 16 103/61 (75) 100 Room Air 06/25/19 23:57 36.3 75 16 91/52 (65) 98 Room Air 06/25/19 21:00 Room Air 06/25/19 20:00 36.6 104 16 96/51 (66) 97 Room Air I & O 06/26/19 07:00 Intake Total 1060 ml Output Total 1000 ml Balance 60 ml Labs Laboratory Tests 06/26/19 06:05: White Blood Count 10.2, Red Blood Count 2.98L, Hemoglobin 7.7L, Hematocrit 25L, Mean Corpuscular Volume 83, Mean Corpuscular Hemoglobin 26, Mean Corpuscular Hemoglobin Concent 31L, Red Cell Distribution Width 14.3, Platelet Count 240, Mean Platelet Volume 10.5H, Neutrophils (%) (Auto) 77H, Lymphocytes (%) (Auto) 13, Monocytes (%) (Auto) 9, Eosinophils (%) (Auto) 1, Basophils (%) (Auto) 0, Neutrophils # (Auto) 7.8, Lymphocytes # (Auto) 1.4, Monocytes # (Auto) 0.9, Eosinophils # (Auto) 0.1, Basophils # (Auto) 0.0 Microbiology 06/25/19 Urine Culture - Final, Complete Gram Pos Mixed Bacterial Jose Normal skin jose JAE OLSON DO Jun 26, 2019 17:28
--- NOTE | 2019-06-26 17:30 | Progress Note-Pre Operative ---
Pre-Operative Progress Note H&P Reviewed The H&P was reviewed, patient examined and no changes noted. Date Seen by Provider: Jun 26, 2019 Time Seen by Provider: 07:10 Date H&P Reviewed: Jun 26, 2019 Time H&P Reviewed: 07:00 Pre-Operative Diagnosis: previous section, labor, vaginal bleeding, colitis flare, 37 4/7 w JAE OLSON DO Jun 26, 2019 17:30
--- NOTE | 2019-06-26 17:30 | NUR ---
DR. OLSON HERE TO SEE PT.
--- NOTE | 2019-06-26 18:30 | NUR ---
EATING STORK MEAL. CARING FOR INFANT IN ROOM.
[2019-06-26] MEDS ORDERED: FERROUS SULF 325 MG (IRON) TAB PO ONE (19:24)
[2019-06-26] MEDS: FERROUS SULF 325 MG (IRON) TAB PO SCH (19:30)
--- NOTE | 2019-06-26 19:45 | NUR ---
pt resting in bed holding nb. assessment completed. pt voiced burning sensation around right side of incision. abdominal binder provided. pt denies any further needs at this time. will continue to monitor.
[2019-06-26 21:00] VITALS: BP 97/63
[2019-06-27 02:17] VITALS: BP 104/73
[2019-06-27] MEDS: IBUPROFEN 600 MG (MOTRIN) TAB PO SCH ×2 (03:45→09:46)
[2019-06-27 05:19] LABS: BASOPHILS % (AUTO) 0 % (0-10); EOSINOPHILS # (AUTO) 0.3 10^3/uL (0.0-0.3); EOSINOPHILS % (AUTO) 3 % (0-10); HEMATOCRIT 25 % (35-52); HEMOGLOBIN 7.7 G/DL (11.5-16.0); LYMPHOCYTES # (AUTO) 1.7 X 10^3 (1.0-4.0); LYMPHOCYTES % (AUTO) 19 % (12-44); MEAN CORPUSCULAR HEMOGLOBIN 26 PG (25-34); MEAN CORPUSCULAR HGB CONC 31 G/DL (32-36); MEAN CORPUSCULAR VOLUME 83 FL (80-99); MEAN PLATELET VOLUME 9.3 FL (7.4-10.4); MONOCYTES # (AUTO) 0.8 X 10^3 (0.0-1.0); MONOCYTES % (AUTO) 9 % (0-12); NEUTROPHILS # (AUTO) 5.9 X 10^3 (1.8-7.8); NEUTROPHILS % (AUTO) 68 % (42-75); PLATELET COUNT 260 10^3/uL (130-400); RED CELL DISTRIBUTION WIDTH 14.5 % (10.0-14.5); WHITE BLOOD COUNT 8.7 10^3/uL (4.3-11.0)
[2019-06-27] MEDS: ACETAMINOPHEN 500 MG TAB (TYLENOL) PO SCH (05:36)
--- NOTE | 2019-06-27 08:16 | Postpartum Progress Note ---
Note Note Day # 2 Subjective: This patient I am covering for Dr. Mcpherson, this morning patient is without complaints. Ambulating, voiding. Tolerating a regular diet without nausea or vomiting. Normal lochia. Pain is well controlled with oral pain medications. Objective: Physical Exam: General - Alert and oriented, no apparent distress Abdomen - Soft, appropriately tender to palpation, non-distended, fundus firm at umbilicus Extremities - no edema, negative Palmira's bilaterally Incision- c/d/i Assessment: POD 2 RLTCS Acute blood loss anemia Plan: Routine care. Encourage breast feeding. Encourage ambulation. Ferrous sulfate supplementation. Plan for discharge today Vitals - Labs Vital Signs - I&O Vital Signs Date Time Temp Pulse Resp B/P (MAP) Pulse Ox O2 Delivery O2 Flow Rate FiO2 06/27/19 02:17 36.5 96 18 104/73 (83) 100 Room Air 06/26/19 21:00 37.2 96 18 97/63 (74) 100 Room Air 06/26/19 16:30 36.8 78 18 103/75 (84) 100 Room Air 06/26/19 12:00 36.7 100 20 99/57 (71) 98 Room Air I & O 06/27/19 07:00 Intake Total 2000 ml Output Total 2200 ml Balance -200 ml Labs Laboratory Tests 06/27/19 05:06: White Blood Count 8.7, Red Blood Count 3.00L, Hemoglobin 7.7L, Hematocrit 25L, Mean Corpuscular Volume 83, Mean Corpuscular Hemoglobin 26, Mean Corpuscular Hemoglobin Concent 31L, Red Cell Distribution Width 14.5, Platelet Count 260, Mean Platelet Volume 9.3, Neutrophils (%) (Auto) 68, Lymphocytes (%) (Auto) 19, Monocytes (%) (Auto) 9, Eosinophils (%) (Auto) 3, Basophils (%) (Auto) 0, Neutrophils # (Auto) 5.9, Lymphocytes # (Auto) 1.7, Monocytes # (Auto) 0.8, Eosinophils # (Auto) 0.3, Basophils # (Auto) 0.0 Microbiology 06/25/19 Urine Culture - Final, Complete Gram Pos Mixed Bacterial Jose Normal skin jose BRYANNA GOVEA DO Jun 27, 2019 08:16
--- NOTE | 2019-06-27 08:20 | NUR ---
DR. GOVEA HERE TO SEE PT. PLAN FOR DISCHARGE TODAY.
[2019-06-27 08:30] VITALS: BP 109/50
--- NOTE | 2019-06-27 08:30 | NUR ---
A.M. ASSESSMENT COMPLETED. VSS. OUT TO AMBULATE IN THE [facility]. WANTING TO LEAVE SOON.
[2019-06-27] MEDS: FERROUS SULF 325 MG (IRON) TAB PO SCH (08:50)
[2019-06-27] MEDS: DOCUSATE SODIUM 100 MG (COLACE) CAP PO SCH (08:50)
--- NOTE | 2019-06-27 09:35 | NUR ---
DISCHARGE INSTRUCTIONS REVIEWED WITH COPY TO PT. STATES UNDERSTANDING OF ALL INSTRUCTIONS AND NEED TO F/U SCHEDULED AND NEEDED.
[2019-06-27 09:50] VITALS: BP 109/50
--- NOTE | 2019-06-27 09:50 | NUR ---
DISMISSED AMB WITH INFANT FROM [facility] IN STABLE CONDITION TO [facility] BY SPOUSE AND CASANDRA TAFOYA RN.
== END 2019-06-27 09:50 | disposition home or self-care (01) | DRG 787 ==
LOC: LDRP 05:40
PROVIDERS: ADMIT Obstetrics & Gynecology; ATTEND Obstetrics & Gynecology
PROC: 10D00Z1 Extraction of Products of Conception, Low, Open Approach (ICD-10-PCS; principal; 2019-06-25 07:17)
DX: O99.62 Diseases of the digestive system complicating childbirth (principal); K52.9 Noninfective gastroenteritis and colitis, unspecified; O34.211 Maternal care for low transverse scar from previous cesarean delivery; O90.81 Anemia of the puerperium; D62 Acute posthemorrhagic anemia; Z37.0 Single live birth; Z3A.37 37 weeks gestation of pregnancy
CPT/HCPCS: 36415; 81000; 85025; 86850; 86900; 86901; 87088; 94664

== ENCOUNTER 2019-07-19 08:38 | Emergency (ER) | payer MEDICAID ==
[~2019-07-19] VITALS: Ht 154 cm; Wt 60.0 kg
[~2019-07-19 08:38] MED LIST changes: +ACET-93 PO; -CETI10TA20 PO; +CETI10TA21 PO; -CITRIC ACID/SOB CIT (BICITRA) 30 ML UDC ONE; +DCS100C PO; -FAMOTIDINE 20MG/2ML IV (PEPCID) ONE; +FERR-84 PO; -LACTATED RINGERS 1,000 ML IV ONE; -METOCLOPRAMIDE INJ 10 MG/2 ML (REGLAN) ONE; +OXC5T PO; +SIME80TA16 PO; -WATER (STERILE) FOR INJECTION 10 ML ONE; -ceFAZolin INJECTION 1,000 MG ONE
--- NOTE | 2019-07-19 08:45 | ED General ---
General Chief Complaint: Abdominal/GI Problems Stated Complaint: ABD PAIN; BLOODY STOOL; VOMITING History of Present Illness Date Seen by Provider: Jul 19, 2019 Time Seen by Provider: 08:45 Initial Comments Patient presenting to emergency department for evaluation of abdominal pain diarrhea bloody stools that has been an off and on issue for approximately one year. She says she has seen a GI doctor before in the past early on in her and was told that she may have Crohn's disease over she cannot get a colonoscopy at the time. She is now 3 weeks and said that she cannot get the colonoscopy until she is 6 weeks but she is tired of having abdominal pain cramping diarrhea and bloody stools. She says is not every still is bloody but wanted his it is bright red mixed with the stool. The pain is diffuse and crampy. She said she was on Macrobid around 36 weeks . She had an uncomplicated on June 25 denies any signs of wound infection or vaginal bleeding. She is in no obvious distress with normal vital signs. She is not breast-feeding. Allergies and Home Medications Allergies Coded Allergies: No Known Drug Allergies (Unverified , 08/05/18) Home Medications Acetaminophen 500 Mg Tablet, 1,000 MG PO Q8HR Prescribed by: JAE OLSON on 06/26/191726 Butalbital/Aspirin/Caffeine 1 Each Capsule, 2 EACH PO HS, (Reported) Docusate Sodium 100 Mg Capsule, 100 MG PO BID Prescribed by: JAE OSLON on 06/26/191726 Ferrous Sulfate 325 Mg Tablet, 325 MG PO BID Prescribed by: JAE OLSON on 06/26/191726 Ibuprofen 600 Mg Tablet, 600 MG PO Q6HR Prescribed by: JAE OLSON on 06/26/191726 Levalbuterol Tartrate 15 Gm Hfa.aer.ad, 1 PUFF INH Q6H PRN for SHORTNESS OF BREATH, (Reported) Omeprazole Magnesium 20 Mg Tablet.dr, 40 MG PO BID, (Reported) take 2 (20mg) tabs Oxycodone Hcl 5 Mg Tab, 5 MG PO Q4HR PRN for severe pain Prescribed by: JAE OLSON on 06/26/191726 Vit#84/Iron/FA#1/Dha 1 Each Capsule, 1 CAP PO DAILY, (Reported) Simethicone 80 Mg Tab.chew, 80 MG PO PCHS PRN for GAS Prescribed by: JAE OLSON on 06/26/19 5847 Patient Home Medication List Home Medication List Reviewed: Yes Review of Systems Review of Systems Constitutional: no symptoms reported EENTM: no symptoms reported Respiratory: no symptoms reported Cardiovascular: no symptoms reported Gastrointestinal: abdominal pain, diarrhea Genitourinary: no symptoms reported Musculoskeletal: no symptoms reported Skin: no symptoms reported Psychiatric/Neurological: No Symptoms Reported All Other Systems Reviewed Negative Unless Noted: Yes Past Fabcteq-Qlynbr-Avhrmg Hx Patient Social History Alcohol Beverage of Choice: Wine 2nd Hand Smoke Exposure: No Recent Foreign Travel: No Contact w/Someone Who Travel: No Recent Hopitalizations: No Immunizations Up To Date Tetanus Booster (TDap): Unknown PED Vaccines UTD: Yes Seasonal Allergies Seasonal Allergies: Yes Past Medical History Surgeries: Yes (C-SECTIONS X2, D&Cx2 ) Section Respiratory: Yes Asthma Currently Using CPAP: No Currently Using BIPAP: No Cardiac: No Neurological: Yes (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 17) Headaches /Migraines Reproductive Disorders: No Female Reproductive Disorders: Denies Sexually Transmitted Disease: No HIV/AIDS: No Genitourinary: Yes Kidney Infection Gastrointestinal: Yes (poss crohns) Gastroesophageal Reflux Musculoskeletal: No Endocrine: No HEENT: No (PERFORATED EAR DRUM A KID) Loss of Vision: Denies Hearing Impairment: Denies Cancer: No Psychosocial: Yes (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) PTSD Integumentary: No Blood Disorders: No (HX OF ANEMIA) Adverse Reaction/Blood Tranf: No Family Medical History Alcoholism 03 MOTHER 19 MOTHER Alcoholism 03 MOTHER 19 MOTHER Arthritis 19 MOTHER (RA) FH: depression 19 MOTHER FH: liver disease 19 MOTHER Family history: Arthritis 03 MOTHER Family history: Asthma 03 MOTHER Family history: Hypertension 03 MOTHER Family history: Osteoporosis 03 MOTHER Headache 03 MOTHER Hearing loss 03 MOTHER History of - anemia 03 MOTHER Hypercholesterolemia 03 MOTHER Osteoporosis 19 MOTHER Psychotic disorder 03 MOTHER, Onset:40's - 50 No Family History of: Abdominal aortic aneurysm [place]'s disease Aphasia Cancer Cancer of colon Cataract Chest pain Congenital heart disease Congestive heart failure Cystic fibrosis Dementia Dysphagia Family history: Allergy Family history: Alzheimer's disease Family history: Breast disease Family history: Cardiovascular disease Family history: Coronary thrombosis Family history: Diabetes mellitus Family history: Gastrointestinal disease Family history: Glaucoma Family history: Thyroid disorder Heart disease Hereditary disease History of - disorder History of - respiratory disease History of drug abuse Human immunodeficiency virus (HIV) seropositivity Infertile Kidney disease Malignant neoplasm of lung Myocardial infarction Parkinson's disease Prostate cancer Seizure disorder Stroke Tuberculosis Visual impairment Physical Exam Vital Signs Vital Signs - First Documented 07/19/19 08:42 Temp 36.2 Pulse 109 Resp 18 B/P (MAP) 132/93 (106) Pulse Ox 97 O2 Delivery Room Air Capillary Refill : Height, Weight, BMI Height: 5'1.00" Weight: 133lbs. 0.0oz. 60.722404hk; 27.09 BMI Method:Stated General Appearance: No Apparent Distress, WD/WN HEENT: PERRL/EOMI Neck: Supple Respiratory: No Respiratory Distress Cardiovascular: Regular Rate, Rhythm Gastrointestinal: Soft, Tenderness (diffuse ttp. No rebound or guarding) Rectal: Heme Positive Stool, Other (brown stool) Extremity: Normal Capillary Refill Neurologic/Psychiatric: Alert, Oriented x3 Skin: Warm/Dry Progress/Results/Core Measures Suspected Sepsis SIRS Temperature: Pulse: Respiratory Rate: Laboratory Tests 07/19/19 08:59: White Blood Count 9.7 Blood Pressure / Mean: Laboratory Tests 07/19/19 08:59: Creatinine 0.68, Platelet Count 376, Total Bilirubin 0.2 Results/Orders Lab Results Laboratory Tests Test 07/19/19 08:59 07/19/19 09:02 Range/Units White Blood Count 9.7 4.3-11.0 10^3/uL Red Blood Count 4.80 4.35-5.85 10^6/uL Hemoglobin 12.8 11.5-16.0 G/DL Hematocrit 41 35-52 % Mean Corpuscular Volume 85 80-99 FL Mean Corpuscular Hemoglobin 27 25-34 PG Mean Corpuscular Hemoglobin Concent 31 L 32-36 G/DL Red Cell Distribution Width 18.3 H 10.0-14.5 % Platelet Count 376 130-400 10^3/uL Mean Platelet Volume 10.4 7.4-10.4 FL Neutrophils (%) (Auto) 62 42-75 % Lymphocytes (%) (Auto) 18 12-44 % Monocytes (%) (Auto) 11 0-12 % Eosinophils (%) (Auto) 8 0-10 % Basophils (%) (Auto) 1 0-10 % Neutrophils # (Auto) 6.0 1.8-7.8 X 10^3 Lymphocytes # (Auto) 1.7 1.0-4.0 X 10^3 Monocytes # (Auto) 1.1 H 0.0-1.0 X 10^3 Eosinophils # (Auto) 0.7 H 0.0-0.3 10^3/uL Basophils # (Auto) 0.1 0.0-0.1 10^3/uL Neutrophils % (Manual) 26 % Lymphocytes % (Manual) 17 % Monocytes % (Manual) 17 % Eosinophils % (Manual) 8 % Basophils % (Manual) 2 % Metamyelocytes % 1 % Myelocytes % 1 % Band Neutrophils 27 % Atypical Lymphocytes 1 % Blood Morphology Comment NORMAL Sodium Level 139 135-145 MMOL/L Potassium Level 3.7 3.6-5.0 MMOL/L Chloride Level 100 98-107 MMOL/L Carbon Dioxide Level 22 21-32 MMOL/L Anion Gap 17 H 5-14 MMOL/L Blood Urea Nitrogen 4 L 7-18 MG/DL Creatinine 0.68 0.60-1.30 MG/DL Estimat Glomerular Filtration Rate > 60 BUN/Creatinine Ratio 6 Glucose Level 86 70-105 MG/DL Calcium Level 9.3 8.5-10.1 MG/DL Corrected Calcium 9.1 8.5-10.1 MG/DL Total Bilirubin 0.2 0.1-1.0 MG/DL Aspartate Amino Transf (AST/SGOT) 14 5-34 U/L Alanine Aminotransferase (ALT/SGPT) 8 0-55 U/L Alkaline Phosphatase 86 40-136 U/L Total Protein 6.9 6.4-8.2 GM/DL Albumin 4.3 3.2-4.5 GM/DL Lipase 7 L 8-78 U/L Urine Color YELLOW Urine Clarity CLOUDY H Urine pH 5.5 5-9 Urine Specific [place] 1.025 H 1.016-1.022 Urine Protein NEGATIVE NEGATIVE Urine Glucose (UA) NEGATIVE NEGATIVE Urine Ketones 2+ H NEGATIVE Urine Nitrite NEGATIVE NEGATIVE Urine Bilirubin 1+ H NEGATIVE Urine Urobilinogen 0.2 < = 1.0 MG/DL Urine Leukocyte Esterase 1+ H NEGATIVE Urine RBC (Auto) 2+ H NEGATIVE Urine RBC 2-5 H /HPF Urine WBC 25-50 H /HPF Urine Squamous Epithelial Cells >50 H /HPF Urine Crystals NONE /LPF Urine Bacteria LARGE H /HPF Urine Casts NONE /LPF Urine Mucus NEGATIVE /LPF Urine Culture Indicated YES My Orders Orders - JO-ANN WBEBER DO Cbc With Automated Diff (07/19/19 08:56) Comprehensive Metabolic Panel (07/19/19 08:56) Lipase (07/19/19 08:56) Ua Culture If Indicated (07/19/19 08:56) Ct Abdomen/Pelvis W (07/19/19 08:56) C Difficile Ag + Toxin A/B. (07/19/19 08:56) Isolation Central Supply Req (07/19/19 08:56) Fecal Wbc (07/19/19 08:56) Stool Culture (07/19/19 08:56) Parasite Scrn Stool Giard Cryp (07/19/19 08:56) Ondansetron Injection (Zofran Injectio (07/19/19 09:15) Ns Iv 1000 Ml (Sodium Chloride 0.9%) (07/19/19 09:15) Morphine Injection (Morphine Injection (07/19/19 09:02) Iohexol Injection (Omnipaque 350 Mg/Ml 1 (07/19/19 09:45) Received Contrast (Hold Metformin- Contr (07/19/19 09:45) Sodium Chloride Flush (Catheter Flush Sy (07/19/19 09:45) Ns (Ivpb) (Sodium Chloride 0.9% Ivpb Bag (07/19/19 09:45) Manual Differential (07/19/19 08:59) Urine Culture (07/19/19 09:02) Dicyclomine Injection (Bentyl Injection) (07/19/19 13:00) Ns Iv 1000 Ml (Sodium Chloride 0.9%) (07/19/19 10:15) Morphine Injection (Morphine Injection (07/19/19 10:04) Medications Given in ED Current Medications Medications Dose Ordered Sig/Maribell Route Start Time Stop Time Status Last Admin Dose Admin Dicyclomine HCl 20 mg PC ONCE IM 07/19/19 13:00 07/19/19 13:01 07/19/19 10:17 20 MG Iohexol 100 ml ONCE ONCE IV 07/19/19 09:45 07/19/19 09:46 DC 07/19/19 09:55 100 ML Ondansetron HCl 4 mg ONCE ONCE IVP 07/19/19 09:15 07/19/19 09:16 DC 07/19/19 09:12 4 MG Sodium Chloride 10 ml NEEDED PRN IV 07/19/19 09:45 07/19/19 09:56 10 ML Sodium Chloride 100 ml ONCE ONCE IV 07/19/19 09:45 07/19/19 09:46 DC 07/19/19 09:56 100 ML Vital Signs/I&O 07/19/19 08:42 Temp 36.2 Pulse 109 Resp 18 B/P (MAP) 132/93 (106) Pulse Ox 97 O2 Delivery Room Air Capillary Refill : Progress Note : Progress Note Patient with likely colitis symptoms and does need further GI workup, likely on an outpatient basis but I will check for acute emergent condition. I will check labs CT treat symptoms and reassess. Patient has no leukocytosis or fever however she does have significant colitis on CT but no complication such as toxic megacolon perforation or abscess. Patie nt says that she is planning on getting a colonoscopy with Dr. Matthews in 3 weeks but she does not have it scheduled yet. I was able to get ahold of Dr. Matthews and let him know the results and the given the crusty of her complaints this is likely an inflammatory bowel disease rather than infectious etiology. I asked if I could start her on medications so that would not interfere with her results of her testing and he said that starting her on a Medrol Dosepak and antibiotics is reasonable at this time. Patient has repeat benign abdominal exam and feels much better and is able to tolerate fluids by mouth with no difficulty. Given she appears well with normal vital signs benign physical exam and workup she will be discharged in stable condition told to follow with primary care provider in 2-3 days to ensure improvement and come back to the ED sooner with worsening pain fevers vomiting or other general concerns. Patient aware and agreeable with plan and verbalized understanding of the above instructions. Departure Impression Primary Impression: Abdominal pain Additional Impressions: GI bleed Colitis Disposition: 01 HOME, SELF-CARE Condition: Stable Departure-Patient Inst. Referrals: [facility]/ (PCP) Primary Care Physician LUISANA ALCAZAR APRN (Family) Primary Care Physician Patient Instructions: Colitis (DC) Scripts Metronidazole (Flagyl) 500 Mg Tablet 500 MG PO BID, #14 TAB Prov: JO-ANN WEBBER DO 07/19/19 Ciprofloxacin HCl (Ciprofloxacin HCl) 500 Mg Tablet 500 MG PO BID, #14 TAB Prov: JO-ANN WEBBER DO 07/19/19 Ondansetron (Ondansetron Odt) 4 Mg Tab.rapdis 4 MG PO Q6H PRN for NAUSEA/VOMITING-1ST LINE, #14 TAB Prov: JO-ANN WEBBER DO 07/19/19 Hydrocodone/Acetaminophen ([place] 5-325 Tablet) 1 Each Tablet 1 TAB PO Q6H for Pain MDD 10 TABS for 7 Days, #20 TAB Prov: JO-ANN WEBBER DO 07/19/19 Dicyclomine HCl (Bentyl) 20 Mg/2 Ml Inj 20 MG PO TID PRN for cramping, #14 VIAL Prov: JO-ANN WEBBER DO 07/19/19 JO-ANN WEBBER DO Jul 19, 2019 08:45
[2019-07-19] MEDS ORDERED: morphine INJ 10 MG/ML 1ML (SYR OR VIAL) IVP STA ×2 (09:02→10:04)
[2019-07-19] MEDS ORDERED: ONDANSETRON 4 MG/2 ML (SDV) Z0FRAN IVP ONE (09:15)
[2019-07-19] MEDS ORDERED: NS IV 1000 ML 1,000 ML IV SCH ×2 (09:15→10:15)
[2019-07-19 09:35] LABS: BACTERIA,URINE LARGE /HPF; CLARITY,URINE CLOUDY; COLOR,URINE YELLOW; GLUCOSE, URINE (UA) NEGATIVE (NEGATIVE); KETONES,URINE 2+ (NEGATIVE); LEUKOCYTE ESTERASE ,URINE 1+ (NEGATIVE); NITRITE,URINE NEGATIVE (NEGATIVE); PH,URINE 5.5 (5-9); PROTEIN,URINE NEGATIVE (NEGATIVE); WBC,URINE 25-50 /HPF
[2019-07-19 09:36] LABS: HEMATOCRIT 41 % (35-52); HEMOGLOBIN 12.8 G/DL (11.5-16.0); MEAN CORPUSCULAR HEMOGLOBIN 27 PG (25-34); MEAN CORPUSCULAR HGB CONC 31 G/DL (32-36); MEAN CORPUSCULAR VOLUME 85 FL (80-99); MEAN PLATELET VOLUME 10.4 FL (7.4-10.4); PLATELET COUNT 376 10^3/uL (130-400); RED CELL DISTRIBUTION WIDTH 18.3 % (10.0-14.5); WHITE BLOOD COUNT 9.7 10^3/uL (4.3-11.0)
[2019-07-19 09:36] LABS: SQUAMOUS EPITHELIAL CELL,UR >50 /HPF
[2019-07-19 09:37] LABS: BASOPHILS # (AUTO) 0.1 10^3/uL (0.0-0.1); BASOPHILS % (AUTO) 1 % (0-10); EOSINOPHILS # (AUTO) 0.7 10^3/uL (0.0-0.3); EOSINOPHILS % (AUTO) 8 % (0-10); LYMPHOCYTES # (AUTO) 1.7 X 10^3 (1.0-4.0); LYMPHOCYTES % (AUTO) 18 % (12-44); MONOCYTES # (AUTO) 1.1 X 10^3 (0.0-1.0); MONOCYTES % (AUTO) 11 % (0-12); NEUTROPHILS % (AUTO) 62 % (42-75)
[2019-07-19 09:38] LABS: ATYPICAL LYMPHOCYTES 1 %; BAND NEUTROPHILS 27 %; BASOPHILS % (MANUAL) 2 %; EOSINOPHILS % (MANUAL) 8 %; LYMPHOCYTES % (MANUAL) 17 %; METAMYELOCYTES % 1 %; MONOCYTES % (MANUAL) 17 %; MYELOCYTES % 1 %; NEUTROPHILS % (MANUAL) 26 %; RBC MORPH NORMAL
[2019-07-19 09:39] LABS: ALANINE AMINOTRANSFERASE 8 U/L (0-55); ALBUMIN 4.3 GM/DL (3.2-4.5); ALKALINE PHOSPHATASE 86 U/L (40-136); BILIRUBIN,TOTAL 0.2 MG/DL (0.1-1.0); BUN/CREATININE RATIO 6; CALCIUM 9.3 MG/DL (8.5-10.1); CARBON DIOXIDE 22 MMOL/L (21-32); CHLORIDE 100 MMOL/L (98-107); CREATININE SERUM 0.68 MG/DL (0.60-1.30); GFR ESTIMATED > 60; GLUCOSE 86 MG/DL (70-105); LIPASE 7 U/L (8-78); POTASSIUM 3.7 MMOL/L (3.6-5.0); SODIUM 139 MMOL/L (135-145); TOTAL PROTEIN 6.9 GM/DL (6.4-8.2)
[2019-07-19 09:43] LABS: BILIRUBIN,URINE 1+ (NEGATIVE)
[2019-07-19] MEDS ORDERED: IOHEXOL 350 MG/ML 100 ML (OMNIPAQUE 350) VIAL IV ONE (09:45)
[2019-07-19] MEDS ORDERED: NS 100 ML (IVPB) BAG IV ONE (09:45)
[2019-07-19] MEDS ORDERED: CATHETER FLUSH 10 ML SYR IV PRN (09:45)
[2019-07-19] MEDS ORDERED: HOLD METFORMIN - RECEIVED CONTRAST 20 ML VIAL IV SCH (09:45)
--- NOTE | 2019-07-19 10:08 | Diagnostic Imaging Report ---
PROCEDURE: CT abdomen and pelvis with contrast. TECHNIQUE: Multiple contiguous axial images were obtained through the abdomen and pelvis after administration of intravenous contrast. Auto Exposure Controls were utilized during the CT exam to meet ALARA standards for radiation dose reduction. INDICATION: Bloody stools. Nausea and vomiting. Abdominal pain x2 weeks. COMPARISON: 08/13/2018 FINDINGS: Included portions of the lung bases are clear. CT ABDOMEN: There is diffuse moderate circumferential colonic wall thickening. There is some sparing of the cecum. Otherwise, process includes the length of the colon. Normal appendix is identified. Small bowel loops are nondistended. There is no pneumatosis, pneumoperitoneum, nor portal venous gas. There is mild stranding of the pericolonic fat. The kidneys, adrenal glands, spleen, pancreas, and liver have a normal CT appearance. There is no significant free fluid or loculated air-fluid collection within the abdomen. No abnormal mesenteric or retroperitoneal adenopathy is seen. Osseous structures show no acute abnormalities. CT PELVIS: Small amount of free fluid is noted within the pelvis. There is no loculated fluid collection or free air. Urinary bladder is unopacified and mildly distended. There is mild circumferential bladder wall thickening. No calculi are seen within urinary bladder. No abnormal lymph nodes are identified. Osseous structures show no acute abnormalities. IMPRESSION: 1. Significant diffuse abnormal colonic wall thickening with relative sparing of the cecum. Findings are concerning for underlying infectious or inflammatory colitis. Clinical correlation advised. 2. Small amount of free fluid within the pelvis, which may be reactive or physiologic. 3. No loculated fluid collection, pneumatosis, pneumoperitoneum, nor portal venous gas. 4. Mild circumferential bladder wall thickening. Findings could be artifactual related to incomplete distention. Appearance however may also be seen with underlying cystitis. Dictated by: Dictated on workstation # [id number]
[2019-07-19] MEDS ORDERED: METR500T PO (10:59)
[2019-07-19] MEDS ORDERED: DCCL10A2 PO (10:59)
[2019-07-19] MEDS ORDERED: CIPR500T4 PO (10:59)
[2019-07-19] MEDS ORDERED: ONDA4TAB11 PO (10:59)
[2019-07-19] MEDS ORDERED: HYDR-4226 PO (10:59)
[2019-07-19 11:08] VITALS: BP 128/62
[2019-07-19] MEDS ORDERED: DICYCLOMINE 10 MG/ML (BENTYL) 2 ML AMP IM ONE (13:00)
[2019-07-19] MEDS ORDERED: METH4TAB PO (13:54)
== END 2019-07-19 11:06 | disposition home or self-care (01) ==
LOC: EDUNIT# 08:38 → ER FS 08:41
DX: O99.63 Diseases of the digestive system complicating the puerperium (principal); K52.9 Noninfective gastroenteritis and colitis, unspecified; K92.2 Gastrointestinal hemorrhage, unspecified; K21.9 Gastro-esophageal reflux disease without esophagitis; O99.03 Anemia complicating the puerperium; O99.53 Diseases of the respiratory system complicating the puerperium; J45.909 Unspecified asthma, uncomplicated
CPT/HCPCS: 36415; 74177; 80053; 81000; 82274; 83690; 85007; 85027; 87015; 87045; 87046; 87088; 87324; 87328; 87329; 87449; 87899; 89055; 96361; 96372; 96374; 96375; 96376

== ENCOUNTER 2019-11-15 10:34 | Outpatient (RCR) | payer MEDICAID ==
[~2019-11-15] VITALS: Ht 154 cm; Wt 56.8 kg
[~2019-11-15 10:34] MED LIST changes: +ACHYD1T PO; -CETI10TA21 PO; +CETI10TA49 PO; +CIPR500T4 PO; +DCCL10A2 PO; -HYDR-3820 PO; +HYDR-4226 PO; +METH4TAB PO; +METR500T PO; +NF-XOP-HFA INH; +ONDA4TAB11 PO
[2019-11-19] MEDS ORDERED: PANT40TA2 PO (11:27)
== END 2020-02-09 | disposition home or self-care (01) ==
LOC: PREOP 10:34
PROVIDERS: ATTEND Surgery
DX: Z01.818 Encounter for other preprocedural examination (principal)

== ENCOUNTER → 2019-11-16 | Outpatient (CLI) | payer MEDICAID ==
[~2019-11-16] MED LIST changes: +CETI10TA21 PO; -CETI10TA49 PO
== END ==
LOC: LAB FS 08:03
PROVIDERS: ATTEND Surgery
DX: Z01.818 Encounter for other preprocedural examination (principal); Z11.59 Encounter for screening for other viral diseases
CPT/HCPCS: 87635

== ENCOUNTER 2019-11-19 11:15 | Day surgery (SDC) | payer MEDICAID ==
[~2019-11-19] VITALS: Ht 154 cm; Wt 56.8 kg
[2019-11-19] VITALS (12 sets, daily range): BP systolic 102–149; BP diastolic 58–91
[2019-11-19] MEDS ORDERED: NS IV 500 ML 500 ML ONE (11:21)
--- NOTE | 2019-11-19 11:26 | Conscious Sedation/ASA ---
Conscious Sedation Pre-Proced Time 11:20 ASA Score 2 For ASA 3 and 4: Consider anesthesia and medical clearance. Also, for patients with a history of failed moderate sedation consider anesthesia. Airway Lungs Heart ASA score ASA 1: a normal healthy patient ASA 2: a patient with a mild systemic disease (mid diabetes, controlled hypertension, obesity ASA 3: a patient with a severe systemic disease that limits activity (angina, COPD, prior Myocardial infarction) ASA 4: a patient with an incapacitating disease that is a constant threat to life (CHF, renal failure) ASA 5: a moribund patient not expected to survive 24 hrs. (ruptured aneurysm) ASA 6: a declared brain- patient whose organs are being harvested. For emergent operations, add the letter E after the classification Mallampati Classification Grade 2 Sedation Plan Analgesia, Amnesia, Plan communicated to team members, Discussed options with patient/fam, Discussed risks with patient/fam The patient is an appropriate candidate to undergo the planned procedure, sedation, and anesthesia. The patient immediately re-assessed prior to indication. ROBERTO VASQUEZ MD Nov 19, 2019 11:26
--- NOTE | 2019-11-19 11:26 | Progress Note-Pre Operative ---
Pre-Operative Progress Note H&P Reviewed The H&P was reviewed, patient examined and no changes noted. Date Seen by Provider: Nov 19, 2019 Time Seen by Provider: 11:20 Date H&P Reviewed: Nov 19, 2019 Time H&P Reviewed: :20 Pre-Operative Diagnosis: GERD, nausea, rectal bleed ROBERTO VASQUEZ MD Nov 19, 2019 11:26
[2019-11-19] MEDS ORDERED: PANT40TA2 PO (11:27)
--- OUTSIDE RECORDS SUMMARY | 2019-11-19 11:27 | XMS REPORT | Continuity of Care Document ---
Author Organization Unknown Address Unknown Phone Unavailable Allergies Active Description Code Type Severity Reaction Onset Reported/Identified Relationship to Patient Clinical Status Yes No Known Drug Allergies [id number] Drug Allergy Unknown N/A 11/15/2019 Medications There is no data. Problems Date Dx Coded Attending Type Code Diagnosis Diagnosed By 09/08/2013 BRYANNA GOVEA DO Ot 599.0 URIN TRACT INFECTION NOS 09/08/2013 BRYANNA GOVEA DO Ot 644.03 THRT OLIVIA LABOR-ANTEPART 09/08/2013 BRYANNA GOVEA DO Ot 646.63 INFECTION-ANTEPARTUM 09/08/2013 BRYANNA GOVEA DO Ot 654.23 PREV DELIVERY, ANTEPARTUM COND 02/17/2018 JAE OLSON DO Ot B96.2 0 UNSP ESCHERICHIA COLI THE CAUSE OF DI 02/17/2018 JAE OLSON DO Ot J45.9 09 UNSPECIFIED ASTHMA, UNCOMPLICATED 02/17/2018 JAE OLSON DO Ot O03.3 8 URINARY TRACT INFECTION FOLLOWING INCOMP 03/05/2018 JAE OLSON DO Ot B96.2 0 UNSP ESCHERICHIA COLI THE CAUSE OF DI 03/05/2018 JAE OLSON DO Ot J45.9 09 UNSPECIFIED ASTHMA, UNCOMPLICATED 03/05/2018 JAE OLSON DO C Ot O03.3 8 URINARY TRACT INFECTION FOLLOWING INCOMP 05/07/2018 MARYCARMEN OLSON DOA Molina Ot Z01.8 18 ENCOUNTER FOR OTHER PREPROCEDURAL EXAMIN 05/08/2018 JAE OLSON DO Ot J45.9 09 UNSPECIFIED ASTHMA, UNCOMPLICATED 05/08/2018 JAE OLSON DO Ot K21.9 GASTRO-ESOPHAGEAL REFLUX DISEASE WITHOUT 05/08/2018 MARYCARMEN OLSON DOA C Ot K60.2 ANAL FISSURE, UNSPECIFIED 05/08/2018 JAE OLSON DO C Ot O02.1 MISSED 05/08/2018 JAE OLSON DO Ot Z79.8 99 OTHER SUSTAINMENT LOGISTICS ANALYST (CURRENT) DRUG THERAPY 05/13/2018 OLSON DO, JAE C Ot J45.9 09 UNSPECIFIED ASTHMA, UNCOMPLICATED 05/13/2018 LOSON DO, JAE C Ot K21.9 GASTRO-ESOPHAGEAL REFLUX DISEASE WITHOUT 05/13/2018 OLSON DO, JAE C Ot K60.2 ANAL FISSURE, UNSPECIFIED 05/13/2018 OLSON DO, JAE C Ot O02.1 MISSED 05/13/2018 OLSON DO, JAE C Ot Z79.8 99 OTHER SUSTAINMENT LOGISTICS ANALYST (CURRENT) DRUG THERAPY 05/15/2018 OLSON DO, JAE C Ot J45.9 09 UNSPECIFIED ASTHMA, UNCOMPLICATED 05/15/2018 OLSON DO, JAE C Ot K21.9 GASTRO-ESOPHAGEAL REFLUX DISEASE WITHOUT 05/15/2018 OLSON DO, JAE C Ot K60.2 ANAL FISSURE, UNSPECIFIED 05/15/2018 OLSON DO, JAE C Ot O02.1 MISSED 05/15/2018 OLSON DO, JAE C Ot Z79.8 99 OTHER SUSTAINMENT LOGISTICS ANALYST (CURRENT) DRUG THERAPY 08/05/2018 KALI FRENCH DOED T Ot F43. 10 POST-TRAUMATIC STRESS DISORDER, UNSPECIF 08/05/2018 KALI FRENCH DOED T Ot G43.909 MIGRAINE, UNSP, NOT INTRACTABLE, WITHOUT 08/05/2018 KALI FRENCH DOED T Ot J45.909 UNSPECIFIED ASTHMA, UNCOMPLICATED 08/05/2018 KALI FRENCH DOED T Ot K21. 9 GASTRO-ESOPHAGEAL REFLUX DISEASE WITHOUT 08/05/2018 RAKAN FRENCH DO T Ot N30. 00 ACUTE CYSTITIS WITHOUT HEMATURIA 08/05/2018 KALI FRENCH DOED T Ot R10. 33 PERIUMBILICAL PAIN 08/05/2018 KALI FRENCH DOED T Ot R19. 7 DIARRHEA, UNSPECIFIED 08/05/2018 KALI FRENCH DOED T Ot R74. 8 ABNORMAL LEVELS OF OTHER SERUM ENZYMES 08/05/2018 RAKAN FRENCH DO T Ot Z82. 49 FAMILY HX OF ISCHEM HEART DIS AND OTH DI 08/05/2018 RAKAN FRENCH DO T Ot Z87.448 PERSONAL HISTORY OF OTHER DISEASES OF UR 08/05/2018 RAKAN FRENCH DO T Ot Z87.820 PERSONAL HISTORY OF TRAUMATIC BRAIN INJU 08/05/2018 GILLIAN DO, RAKAN T Ot Z98.890 OTHER SPECIFIED POSTPROCEDURAL STATES 08/06/2018 GILLIAN COLE, RAKAN T Ot F43. 10 POST-TRAUMATIC STRESS DISORDER, UNSPECIF 08/06/2018 GILLIAN COLE RAKAN T Ot G43.909 MIGRAINE, UNSP, NOT INTRACTABLE, WITHOUT 08/06/2018 GILLIAN COLE RAKAN T Ot J45.909 UNSPECIFIED ASTHMA, UNCOMPLICATED 08/06/2018 GILLIAN COLE RAKAN T Ot K21. 9 GASTRO-ESOPHAGEAL REFLUX DISEASE WITHOUT 08/06/2018 GILLIAN COLE, RAKAN T Ot N30. 00 ACUTE CYSTITIS WITHOUT HEMATURIA 08/06/2018 GILLIAN COLE RAKAN T Ot R10. 33 PERIUMBILICAL PAIN 08/06/2018 GILLIAN COLE RAKAN T Ot R19. 7 DIARRHEA, UNSPECIFIED 08/06/2018 GILLIAN COLE, RAKAN T Ot R74. 8 ABNORMAL LEVELS OF OTHER SERUM ENZYMES 08/06/2018 GILLIAN COLE RAKAN T Ot Z82. 49 FAMILY HX OF ISCHEM HEART DIS AND OTH DI 08/06/2018 GILLIAN COLE RAKAN T Ot Z87.448 PERSONAL HISTORY OF OTHER DISEASES OF UR 08/06/2018 GILLIAN COLE RAKAN T Ot Z87.820 PERSONAL HISTORY OF TRAUMATIC BRAIN INJU 08/06/2018 GILLIAN COLE, RAKAN T Ot Z98.890 OTHER SPECIFIED POSTPROCEDURAL STATES 08/15/2018 INGE, ZACH TAX MANAGER CPA Ot K92.1 MELENA 08/15/2018 INGE, ZACH TAX MANAGER CPA Ot R10.30 LOWER ABDOMINAL PAIN, UNSPECIFIED 08/17/2018 INGE, ZACH TAX MANAGER CPA Ot K92.1 MELENA 08/17/2018 INGE, ZACH TAX MANAGER CPA Ot R10.30 LOWER ABDOMINAL PAIN, UNSPECIFIED 08/19/2018 INGE, ZACH TAX MANAGER CPA Ot K92.1 MELENA 08/19/2018 INGE, ZACH TAX MANAGER CPA Ot R10.30 LOWER ABDOMINAL PAIN, UNSPECIFIED 08/31/2018 INGE, ZACH TAX MANAGER CPA Ot K92.1 MELENA 08/31/2018 INGE, ZACH TAX MANAGER CPA Ot R10.30 LOWER ABDOMINAL PAIN, UNSPECIFIED 11/14/2018 INGE, ZACH TAX MANAGER CPA Ot K92.1 MELENA 11/14/2018 INGE, ZACH TAX MANAGER CPA Ot R10.30 LOWER ABDOMINAL PAIN, UNSPECIFIED 11/16/2018 JO-ANN WEBBER DO Ot E86 .0 DEHYDRATION 11/16/2018 JO-ANN WEBBER DO, Ot F43.10 POST-TRAUMATIC STRESS DISORDER, UNSPECIF 11/16/2018 JO-ANN WEBBER DO, Ot G43.909 MIGRAINE, UNSP, NOT INTRACTABLE, WITHOUT 11/16/2018 JO-ANN WEBBER DO, Ot J45.909 UNSPECIFIED ASTHMA, UNCOMPLICATED 11/16/2018 JO-ANN WEBBER DO, Ot K21 .9 GASTRO-ESOPHAGEAL REFLUX DISEASE WITHOUT 11/16/2018 JO-ANN WEBBER DO Ot O23.41 UNSP INFCT OF URINARY TRACT IN 11/16/2018 JO-ANN WEBBER DO, Ot O26.891 OTH RELATED CONDITIONS, FIRST 11/16/2018 JO-ANN WEBBER DO, Ot O99.281 ENDO, NUTRITIONAL AND METAB DISEASES COM 11/16/2018 JO-ANN WEBBER DO, Ot O99.341 OTH MENTAL DISORDERS COMPLICATING PREGNA 11/16/2018 JO-ANN WEBBER DO, Ot O99.351 DISEASES OF THE NERVOUS SYS COMP PREGNAN 11/16/2018 JO-ANN WEBBER DO, Ot O99.511 DISEASES OF THE RESP SYS COMP , 11/16/2018 JO-ANN WEBEBR DO, Ot O99.611 DISEASES OF THE DGSTV SYS COMP 11/16/2018 JO-ANN WEBBER DO Ot R11 .0 NAUSEA 11/16/2018 JO-ANN WEBBER DO, Ot R82 .4 ACETONURIA 11/16/2018 JO-ANN WEBBER DO Ot Z3A.01 LESS THAN 8 WEEKS GESTATION OF 11/16/2018 JO-ANN WEBBER DO, Ot Z82.49 FAMILY HX OF ISCHEM HEART DIS AND OTH DI 11/16/2018 ZACH ALCAZAR Ot K92.1 MELENA 11/16/2018 ZACH ALCAZAR Ot R10.30 LOWER ABDOMINAL PAIN, UNSPECIFIED 11/16/2018 ZACH ALCAZAR Ot K92.1 MELENA 11/16/2018 ZACH ALCAZAR Ot R10.30 LOWER ABDOMINAL PAIN, UNSPECIFIED 11/17/2018 JAE OLSON DO Ot Z36.8 9 ENCOUNTER FOR OTHER SPECIFIED 11/17/2018 JAE OLSON DO Ot Z36.8 9 ENCOUNTER FOR OTHER SPECIFIED 11/19/2018 JO-ANN WEBBER DO Ot E86 .0 DEHYDRATION 11/19/2018 JO-ANN WEBBER DO, Ot F43.10 POST-TRAUMATIC STRESS DISORDER, UNSPECIF 11/19/2018 JO-ANN WEBBER DO, Ot G43.909 MIGRAINE, UNSP, NOT INTRACTABLE, WITHOUT 11/19/2018 JO-ANN WEBBER DO, Ot J45.909 UNSPECIFIED ASTHMA, UNCOMPLICATED 11/19/2018 JO-ANN WEBBER DO Ot K21 .9 GASTRO-ESOPHAGEAL REFLUX DISEASE WITHOUT 11/19/2018 JO-ANN WEBBER DO Ot O23.41 UNSP INFCT OF URINARY TRACT IN 11/19/2018 JO-ANN WEBBER DO, Ot O26.891 OTH RELATED CONDITIONS, FIRST 11/19/2018 JO-ANN WEBBER DO, Ot O99.281 ENDO, NUTRITIONAL AND METAB DISEASES COM 11/19/2018 JO-ANN WEBBER DO, Ot O99.341 OTH MENTAL DISORDERS COMPLICATING PREGNA 11/19/2018 JO-ANN WEBBER DO, Ot O99.351 DISEASES OF THE NERVOUS SYS COMP PREGNAN 11/19/2018 JO-ANN WEBBER DO, Ot O99.511 DISEASES OF THE RESP SYS COMP , 11/19/2018 JO-ANN WEBBER DO, Ot O99.611 DISEASES OF THE DGSTV SYS COMP 11/19/2018 JO-ANN WEBBER DO Ot R11 .0 NAUSEA 11/19/2018 JO-ANN WEBBER DO, Ot R82 .4 ACETONURIA 11/19/2018 JO-ANN WEBBER DO Ot Z3A.01 LESS THAN 8 WEEKS GESTATION OF 11/19/2018 JO-ANN WEBBER DO, Ot Z82.49 FAMILY HX OF ISCHEM HEART DIS AND OTH DI 11/20/2018 ALINE TURCIOS MD, Ot J45.909 UNSPECIFIED ASTHMA, UNCOMPLICATED 11/20/2018 ALINE TURCIOS MD Ot O23.41 UNSP INFCT OF URINARY TRACT IN 11/20/2018 ALINE TURCIOS MD Ot O99.511 DISEASES OF THE RESP SYS COMP , 11/20/2018 ALINE TURCIOS MD Ot O99.89 OTH DISEASES AND CONDITIONS COMPL PREG/C 11/20/2018 ALINE TURCIOS MD Ot R10.31 RIGHT LOWER QUADRANT PAIN 11/20/2018 ALINE TURCIOS MD Ot R19 .7 DIARRHEA, UNSPECIFIED 11/20/2018 ALINE TURCIOS MD Ot Z3A.01 LESS THAN 8 WEEKS GESTATION OF 11/20/2018 ALINE TURCIOS MD Ot J45.909 UNSPECIFIED ASTHMA, UNCOMPLICATED 11/20/2018 ALINE TURCIOS MD Ot O23.41 UNSP INFCT OF URINARY TRACT IN 11/20/2018 ALINE TURCIOS MD Ot O99.511 DISEASES OF THE RESP SYS COMP , 11/20/2018 ALINE TURCIOS MD Ot O99.89 OTH DISEASES AND CONDITIONS COMPL PREG/C 11/20/2018 ALINE TURCIOS MD Ot R10.31 RIGHT LOWER QUADRANT PAIN 11/20/2018 ALINE TURCIOS MD Ot R19 .7 DIARRHEA, UNSPECIFIED 11/20/2018 ALINE TURCIOS MD Ot Z3A.01 LESS THAN 8 WEEKS GESTATION OF 11/22/2018 JO-ANN WEBBER DO Ot E86 .0 DEHYDRATION 11/22/2018 JO-ANN WEBBER DO, Ot F43.10 POST-TRAUMATIC STRESS DISORDER, UNSPECIF 11/22/2018 JO-ANN WEBBER DO, Ot G43.909 MIGRAINE, UNSP, NOT INTRACTABLE, WITHOUT 11/22/2018 JO-ANN WEBBER DO, Ot J45.909 UNSPECIFIED ASTHMA, UNCOMPLICATED 11/22/2018 J-OANN WEBBER DO, Ot K21 .9 GASTRO-ESOPHAGEAL REFLUX DISEASE WITHOUT 11/22/2018 JO-ANN WEBBER DO Ot O23.41 UNSP INFCT OF URINARY TRACT IN 11/22/2018 JO-ANN WEBBER DO, Ot O26.891 OTH RELATED CONDITIONS, FIRST 11/22/2018 JO-ANN WEBBER DO, Ot O99.281 ENDO, NUTRITIONAL AND METAB DISEASES COM 11/22/2018 JO-ANN WEBBER DO, Ot O99.341 OTH MENTAL DISORDERS COMPLICATING PREGNA 11/22/2018 JO-ANN WEBBER DO, Ot O99.351 DISEASES OF THE NERVOUS SYS COMP PREGNAN 11/22/2018 JO-ANN WEBBER DO, Ot O99.511 DISEASES OF THE RESP SYS COMP , 11/22/2018 JO-ANN WEBBER DO, Ot O99.611 DISEASES OF THE DGSTV SYS COMP 11/22/2018 JO-ANN WEBBER DO Ot R11 .0 NAUSEA 11/22/2018 AKBAR COLEJO-ANN Ot R82 .4 ACETONURIA 11/22/2018 JO-ANN WEBBER DO Ot Z3A.01 LESS THAN 8 WEEKS GESTATION OF 11/22/2018 JO-ANN WEBBER DO Ot Z82.49 FAMILY HX OF ISCHEM HEART DIS AND OTH DI 12/10/2018 OLSON DO JAE C Ot Z36.8 9 ENCOUNTER FOR OTHER SPECIFIED 02/26/2019 OLSON DO, JAE C Ot Z34.9 2 ENCNTR FOR SUPRVSN OF NORMAL PREG, UNSP, 02/26/2019 OLSON DO, JAE C Ot Z3A.2 0 20 WEEKS GESTATION OF 03/15/2019 OLSON DO, JAE C Ot Z34.9 2 ENCNTR FOR SUPRVSN OF NORMAL PREG, UNSP, 03/15/2019 OLSON DO, JAE C Ot Z3A.2 0 20 WEEKS GESTATION OF 03/29/2019 OLSON DO, JAE C Ot O26.8 59 SPOTTING COMPLICATING , UNSPECI 03/29/2019 OLSON DO, JAE C Ot Z3A.0 0 WEEKS OF GESTATION OF NOT SPEC 03/31/2019 OLSON DO, JAE C Ot O26.8 59 SPOTTING COMPLICATING , UNSPECI 03/31/2019 OLSON DO, JAE C Ot Z3A.0 0 WEEKS OF GESTATION OF NOT SPEC 04/14/2019 PAM MELÉNDEZ FIRE FIGHTER Ot K92.1 MELENA 04/26/2019 PAM MELÉNDEZ FIRE FIGHTER Ot Z34.90 ENCNTR FOR SUPRVSN OF NORMAL , 04/26/2019 PAM MELÉNDEZ FIRE FIGHTER Ot Z3A.00 WEEKS OF GESTATION OF NOT SPEC 05/28/2019 ZACH ALCAZAR Ot K92.1 MELENA 05/28/2019 ZACH ALCAZAR Ot R10.30 LOWER ABDOMINAL PAIN, UNSPECIFIED 05/28/2019 OLSON DO, JAE C Ot Z36.8 9 ENCOUNTER FOR OTHER SPECIFIED 05/28/2019 OLSON DO, JAE C Ot Z34.9 2 ENCNTR FOR SUPRVSN OF NORMAL PREG, UNSP, 05/28/2019 OLSON DO, JAE C Ot Z3A.2 0 20 WEEKS GESTATION OF 05/28/2019 PAM MELÉNDEZ FIRE FIGHTER Ot Z34.90 ENCNTR FOR SUPRVSN OF NORMAL , 05/28/2019 PAM MELÉNDEZ FIRE FIGHTER Ot Z3A.00 WEEKS OF GESTATION OF NOT SPEC 05/28/2019 PAM MELÉNDEZ FIRE FIGHTER Ot K92.1 MELENA 05/28/2019 PAM MELÉNDEZ FIRE FIGHTER Ot O26.899 OTH RELATED CONDITIONS, UNSPEC 05/28/2019 PAM MELÉNDEZ FIRE FIGHTER Ot Z3A.00 WEEKS OF GESTATION OF NOT SPEC 06/01/2019 OLSON DO, JAE C Ot O09.9 0 SUPERVISION OF HIGH RISK , [facility] 06/01/2019 OLSON DO, JAE C Ot O28.8 OTHER ABNORMAL FINDINGS ON SCR 06/01/2019 OLSON DO, JAE C Ot O99.6 13 DISEASES OF THE DGSTV SYS COMP 06/01/2019 OLSON DO, JAE C Ot Z3A.3 2 32 WEEKS GESTATION OF 06/16/2019 OLSON DO, JAE C Ot O09.9 0 SUPERVISION OF HIGH RISK , UNSP 06/16/2019 OLSON DO, JAE C Ot O28.8 OTHER ABNORMAL FINDINGS ON SCR 06/16/2019 OLSON DO, JAE C Ot O99.6 13 DISEASES OF THE DGSTV SYS COMP 06/16/2019 OLSON DO, JAE C Ot Z3A.3 2 32 WEEKS GESTATION OF 06/24/2019 OLSON DO, JAE C Ot Z01.8 18 ENCOUNTER FOR OTHER PREPROCEDURAL EXAMIN 06/25/2019 ZACH ALCAZAR TAX MANAGER CPA Ot K92.1 MELENA 06/25/2019 ZACH ALCAZAR TAX MANAGER CPA Ot R10.30 LOWER ABDOMINAL PAIN, UNSPECIFIED 06/25/2019 OLSON DO, JAE C Ot Z36.8 9 ENCOUNTER FOR OTHER SPECIFIED 06/25/2019 OLSON DO, JAE C Ot Z34.9 2 ENCNTR FOR SUPRVSN OF NORMAL PREG, UNSP, 06/25/2019 OLSON DO, JAE C Ot Z3A.2 0 20 WEEKS GESTATION OF 06/25/2019 PAM MELÉNDEZ Demetris FIRE FIGHTER Ot Z34.90 ENCNTR FOR SUPRVSN OF NORMAL , 06/25/2019 PAM MELÉNDEZ FIRE FIGHTER Ot Z3A.00 WEEKS OF GESTATION OF NOT SPEC 06/25/2019 PAM MELÉNDEZ Demetris FIRE FIGHTER Ot K92.1 MELENA 06/25/2019 PAM MELÉNDEZ FIRE FIGHTER Ot O26.899 OTH RELATED CONDITIONS, UNSPEC 06/25/2019 PAM MELÉNDEZ FIRE FIGHTER Ot Z3A.00 WEEKS OF GESTATION OF NOT SPEC 06/25/2019 OLSON DO JAE C Ot O09.9 0 SUPERVISION OF HIGH RISK , [facility] 06/25/2019 OLSON DO JAE C Ot O28.8 OTHER ABNORMAL FINDINGS ON SCR 06/25/2019 WESLEY DO JAE C Ot O99.6 13 DISEASES OF THE DGSTV SYS COMP 06/25/2019 WESLEY DO JAE C Ot Z3A.3 2 32 WEEKS GESTATION OF 06/27/2019 OLSON DO JAE C Ot D62 ACUTE POSTHEMORRHAGIC ANEMIA 06/27/2019 WESLEY DO JAE C Ot K52.9 NONINFECTIVE GASTROENTERITIS AND COLITIS 06/27/2019 OLSON DO JAE C Ot O34.2 11 MATERN CARE FOR LOW TRANSVERSE SCAR FROM 06/27/2019 WESLEY DO JAE C Ot O90.8 1 ANEMIA OF THE PUERPERIUM 06/27/2019 WESLEY DO JAE C Ot O99.6 2 DISEASES OF THE DIGESTIVE SYSTEM COMPLIC 06/27/2019 WESLEY DO JAE C Ot Z37.0 SINGLE LIVE 06/27/2019 WESLEY COLE JAE C Ot Z3A.3 7 37 WEEKS GESTATION OF 07/07/2019 PAM MELÉNDEZ Demetrsi FIRE FIGHTER Ot O09.93 SUPERVISION OF HIGH RISK , [facility] 07/07/2019 PAM MELÉNDEZ Demetris FIRE FIGHTER Ot O99.613 DISEASES OF THE DGSTV SYS COMP 07/07/2019 PAM MELÉNDEZ Demetris FIRE FIGHTER Ot Z3A.35 35 WEEKS GESTATION OF 07/19/2019 ZACH ALCAZAR TAX MANAGER CPA Ot K92.1 MELENA 07/19/2019 ZACH ALCAZAR TAX MANAGER CPA Ot R10.30 LOWER ABDOMINAL PAIN, UNSPECIFIED 07/19/2019 OLSON DO JAE C Ot Z36.8 9 ENCOUNTER FOR OTHER SPECIFIED 07/19/2019 WESLEY COLE, JAE C Ot Z34.9 2 ENCNTR FOR SUPRVSN OF NORMAL PREG, UNSP, 07/19/2019 OLSON MARYCARMEN COLEA C Ot Z3A.2 0 20 WEEKS GESTATION OF 07/19/2019 PAM MELÉNDEZ FIRE FIGHTER Ot Z34.90 ENCNTR FOR SUPRVSN OF NORMAL , 07/19/2019 PAM MELÉNDEZ FIRE FIGHTER Ot Z3A.00 WEEKS OF GESTATION OF NOT SPEC 07/19/2019 PAM MELÉNDEZ FIRE FIGHTER Ot K92.1 MELENA 07/19/2019 PAM MELÉNDEZ FIRE FIGHTER Ot O26.899 OTH RELATED CONDITIONS, UNSPEC 07/19/2019 PAM MELÉNDEZ FIRE FIGHTER Ot Z3A.00 WEEKS OF GESTATION OF NOT SPEC 07/19/2019 MARYCARMEN OLSON DOA Molina Ot O09.9 0 SUPERVISION OF HIGH RISK , [facility] 07/19/2019 WESLEY COLE JAE C Ot O28.8 OTHER ABNORMAL FINDINGS ON SCR 07/19/2019 MARYCARMEN OLSON DOA Molina Ot O99.6 13 DISEASES OF THE DGSTV SYS COMP 07/19/2019 WESLEY COLE JAE Molina Ot Z3A.3 2 32 WEEKS GESTATION OF 07/19/2019 JO-ANN WEBBER DO, Ot J45.909 UNSPECIFIED ASTHMA, UNCOMPLICATED 07/19/2019 JO-ANN WEBBER DO, Ot K21 .9 GASTRO-ESOPHAGEAL REFLUX DISEASE WITHOUT 07/19/2019 JO-ANN WEBBER DO, Ot K52 .9 NONINFECTIVE GASTROENTERITIS AND COLITIS 07/19/2019 JO-ANN WEBBER DO Ot K92 .2 GASTROINTESTINAL HEMORRHAGE, UNSPECIFIED 07/19/2019 JO-ANN WEBBER DO Ot O99.03 ANEMIA COMPLICATING THE PUERPERIUM 07/19/2019 JO-ANN WEBBER DO Ot O99.53 DISEASES OF THE RESP SYS COMPLICATING TH 07/19/2019 JO-ANN WEBBER DO Ot O99.63 DISEASES OF THE DIGESTIVE SYSTEM COMPLIC 07/19/2019 JO-ANN WEBBER DO Ot R10 .9 UNSPECIFIED ABDOMINAL PAIN 07/23/2019 JO-ANN WEBBER DO, Ot J45.909 UNSPECIFIED ASTHMA, UNCOMPLICATED 07/23/2019 JO-ANN WEBBER DO Ot K21 .9 GASTRO-ESOPHAGEAL REFLUX DISEASE WITHOUT 07/23/2019 JO-ANN WEBBER DO, Ot K52 .9 NONINFECTIVE GASTROENTERITIS AND COLITIS 07/23/2019 JO-ANN WEBBER DO, Ot K92 .2 GASTROINTESTINAL HEMORRHAGE, UNSPECIFIED 07/23/2019 JO-ANN WEBBER DO, Ot O99.03 ANEMIA COMPLICATING THE PUERPERIUM 07/23/2019 JO-ANN WEBBER DO, Ot O99.53 DISEASES OF THE RESP SYS COMPLICATING TH 07/23/2019 JO-ANN WEBBER DO, Ot O99.63 DISEASES OF THE DIGESTIVE SYSTEM COMPLIC 07/23/2019 JO-ANN WEBBER DO, Ot R10 .9 UNSPECIFIED ABDOMINAL PAIN 08/04/2019 ZACH ALCAZAR Ot K92.1 MELENA 08/04/2019 ZACH ALCAZAR Ot R10.30 LOWER ABDOMINAL PAIN, UNSPECIFIED Procedures Code Description Performed By Ralph barriga On [id number] EX TRACTION OF PRODUCTS OF CONCEPTION, LO 06/25/2019 Results Test Result Range Complete blood count (CBC) with automate d white blood cell (WBC) differential - 05/08/18 13:30 Blood leukocytes automated count (number/volume) 11.3 10*3/uL 4.3-11.0 Blood erythrocytes automated count (number/volume) 4.59 10*6/uL 4.35-5.85 Venous blood hemoglobin measurement (mass/volume) 14.6 g/dL 11.5-16.0 Blood hematocrit (volume fraction) 42 % 35-52 Automated erythrocyte mean corpuscular volume 91 [ foz_us] 80-99 Automated erythrocyte mean corpuscular h emoglobin (mass per erythrocyte) 32 pg 25-34 Automated erythrocyte mean corpuscular h emoglobin concentration measurement (mass/volume) 35 g/dL 32-36 Automated erythrocyte distribution width ratio 12. 2 % 10.0- 14.5 Automated blood platelet count (count/volume) 214 10*3/uL 130-400 Automated blood platelet mean volume measurement 11.8 [foz_us] 7.4-10.4 Automated blood neutrophils/100 leukocytes 78 % 42-75 Automated blood lymphocytes/100 leukocytes 15 % 12-44 Blood monocytes/100 leukocytes 7 % 0-12 Automated blood eosinophils/100 leukocytes 1 % 0-10 Automated blood basophils/100 leukocytes 0 % 0-10 Blood neutrophils automated count (number/volume) 8.8 10*3 1.8-7.8 Blood lymphocytes automated count (number/volume) 1.7 10*3 1.0-4.0 Blood monocytes automated count (number/volume) 0. 7 10*3 0.0-1.0 Automated eosinophil count 0.1 10*3/uL 0 .0-0.3 Automated blood basophil count (count/volume) 0.0 10*3/uL 0.0-0.1 Blood type T Indirect antibody screen pa guera - 05/08/18 13:30 ABO+Rh group AP NRG Transfusion band number [id number] NRG Blood group antibody screen NEGATIVE NR G Methicillin resistant Staphylococcus aur eus (MRSA) screening culture - 05/08/18 13:30 Methicillin resistant Staphylococcus aureus (MRSA) scr eening culture NEG NRG Automated dipstick urinalysis - 08/05/18 18:39 Urine color determination YELLOW NRG Urine clarity determination CLOUDY NR G Urine pH measurement by test strip 6.5 5-9 Specific gravity of urine by test strip 1.010 1.016-1.022 Urine protein assay by test strip, semi-quantitative TRACE NEGATIVE Urine glucose detection by automated test strip NE GATIVE NEGATIVE Erythrocytes detection in urine sediment by light micr oscopy 2+ NEGATIVE Urine ketones detection by automated test strip NE GATIVE NEGATIVE Urine nitrite detection by test strip POSITIVE NEGATIVE Urine total bilirubin detection by test strip NEGA TIVE NEGATIVE Urine urobilinogen measurement by automated test strip (mass/volume) 0.2 mg/dL NORMAL Urine leukocyte esterase detection by dipstick 2+ NEGATIVE Urine beta human chorionic gonadotropin (hCG) measurement - 08/05/18 18:39 Urine beta human chorionic gonadotropin (hCG) measurem ent NEGATIVE NEGATIVE Complete urinalysis with reflex to cultu re - 08/05/18 18:39 Urine color determination YELLOW NRG Urine clarity determination CLOUDY NR G Urine pH measurement by test strip 6.5 5-9 Specific gravity of urine by test strip 1.010 1.016-1.022 Urine protein assay by test strip, semi-quantitative TRACE NEGATIVE Urine glucose detection by automated test strip NE GATIVE NEGATIVE Erythrocytes detection in urine sediment by light micr oscopy 2+ NEGATIVE Urine ketones detection by automated test strip NE GATIVE NEGATIVE Urine nitrite detection by test strip POSITIVE NEGATIVE Urine total bilirubin detection by test strip NEGA TIVE NEGATIVE Urine urobilinogen measurement by automated test strip (mass/volume) 0.2 mg/dL NORMAL Urine leukocyte esterase detection by dipstick 2+ NEGATIVE Automated urine sediment erythrocyte cou nt by microscopy (number/high power field) 2+5 NRG Automated urine sediment leukocyte count by microscopy (number/high power field) [HPF] NRG Bacteria detection in urine sediment by light microsco py LARGE NRG Squamous epithelial cells detection in u rine sediment by light microscopy 2-5 NRG Crystals detection in urine sediment by light microsco py NONE NRG Casts detection in urine sediment by light microscopy NONE NRG Mucus detection in urine sediment by light microscopy NEGATIVE NRG Complete urinalysis with reflex to culture CULTURE PENDING NRG Bacterial urine culture - 08/05/18 18:39 Bacterial urine culture [id number] NRG COLONY COUNT >100,000/ML NRG FTX;REPORTABLE SUSCEPTIBILITY REPORTED 08-08-18 05. NRG RML Sensitivity Panel - 08/05/18 18:39 Gentamicin susceptibility test by minimum inhibitory c oncentration <= NRG Trimethoprim/sulfamethoxazole susceptibi lity test by minimum inhibitoryconcentration <= NRG Levofloxacin susceptibility test by minimum inhibitory concentration <= NRG Ampicillin susceptibility test by minimum inhibitory c oncentration > NRG Cefazolin susceptibility test by minimum inhibitory co ncentration 2 NRG Ceftriaxone susceptibility test by minimum inhibitory concentration <= NRG Ciprofloxacin susceptibility test by minimum inhibitor y concentration <= NRG Meropenem susceptibility test by minimum inhibitory co ncentration <= NRG Nitrofurantoin susceptibility test by mi nimum inhibitory concentration <= NRG Amoxicillin and clavulanate potassium susc RAKESH = NRG Complete blood count (CBC) with automate d white blood cell (WBC) differential - 08/05/18 18:50 Blood leukocytes automated count (number/volume) 11.5 10*3/uL 4.3-11.0 Blood erythrocytes automated count (number/volume) 4.25 10*6/uL 4.35-5.85 Venous blood hemoglobin measurement (mass/volume) 13.0 g/dL 11.5-16.0 Blood hematocrit (volume fraction) 40 % 35-52 Automated erythrocyte mean corpuscular volume 94 [ foz_us] 80-99 Automated erythrocyte mean corpuscular h emoglobin (mass per erythrocyte) 31 pg 25-34 Automated erythrocyte mean corpuscular h emoglobin concentration measurement (mass/volume) 33 g/dL 32-36 Automated erythrocyte distribution width ratio 12. 1 % 10.0- 14.5 Automated blood platelet count (count/volume) 272 10*3/uL 130-400 Automated blood platelet mean volume measurement 10.7 [foz_us] 7.4-10.4 Automated blood neutrophils/100 leukocytes 72 % 42-75 Automated blood lymphocytes/100 leukocytes 15 % 12-44 Blood monocytes/100 leukocytes 8 % 0-12 Automated blood eosinophils/100 leukocytes 5 % 0-10 Automated blood basophils/100 leukocytes 1 % 0-10 Blood neutrophils automated count (number/volume) 8.3 10*3 1.8-7.8 Blood lymphocytes automated count (number/volume) 1.7 10*3 1.0-4.0 Blood monocytes automated count (number/volume) 0. 9 10*3 0.0-1.0 Automated eosinophil count 0.6 10*3/uL 0 .0-0.3 Automated blood basophil count (count/volume) 0.1 10*3/uL 0.0-0.1 Comprehensive metabolic panel - 08/05/18 18:50 Serum or plasma sodium measurement (moles/volume) 142 mmol/L 135-145 Serum or plasma potassium measurement (moles/volume) 3.9 mmol/L 3.6-5.0 Serum or plasma chloride measurement (moles/volume) 106 mmol/L 98-107 Carbon dioxide 24 mmol/L 21-32 Serum or plasma anion gap determination (moles/volume) 12 mmol/L 5-14 Serum or plasma urea nitrogen measurement (mass/volume ) 8 mg/dL 7-18 Serum or plasma creatinine measurement (mass/volume) 0.66 mg/dL 0.60-1.30 Serum or plasma urea nitrogen/creatinine mass ratio 12 NRG Serum or plasma creatinine measurement w ith calculation of estimated glomerular filtration rate > NRG Serum or plasma glucose measurement (mass/volume) 83 mg/dL 70-105 Serum or plasma calcium measurement (mass/volume) 9.0 mg/dL 8.5-10.1 Serum or plasma total bilirubin measurement (mass/volu me) 0.2 mg/dL 0.1-1.0 Serum or plasma alkaline phosphatase juanis surement (enzymatic activity/volume) 54 U/L 40-136 Serum or plasma aspartate aminotransfera se measurement (enzymatic activity/volume) 14 U/L 5-34 Serum or plasma alanine aminotransferase measurement (enzymatic activity/volume) 10 U/L 0-55 Serum or plasma protein measurement (mass/volume) 6.7 g/dL 6.4-8.2 Serum or plasma albumin measurement (mass/volume) 4.1 g/dL 3.2-4.5 CALCIUM CORRECTED 8.9 mg/dL 8.5-10.1 Lipase - 08/05/18 18:50 Lipase 938 U/L 8-78 Complete urinalysis with reflex to cultu re - 11/16/18 17:25 Urine color determination YELLOW NRG Urine clarity determination CLOUDY NR G Urine pH measurement by test strip 6.5 5-9 Specific gravity of urine by test strip 1.010 1.016-1.022 Urine protein assay by test strip, semi-quantitative TRACE NEGATIVE Urine glucose detection by automated test strip NE GATIVE NEGATIVE Erythrocytes detection in urine sediment by light micr oscopy 1+ NEGATIVE Urine ketones detection by automated test strip 2+ NEGATIVE Urine nitrite detection by test strip POSITIVE NEGATIVE Urine total bilirubin detection by test strip NEGA TIVE NEGATIVE Urine urobilinogen measurement by automated test strip (mass/volume) 0.2 mg/dL NORMAL Urine leukocyte esterase detection by dipstick 2+ NEGATIVE Automated urine sediment erythrocyte cou nt by microscopy (number/high power field) RARE NRG Automated urine sediment leukocyte count by microscopy (number/high power field) [HPF] NRG Bacteria detection in urine sediment by light microsco py LARGE NRG Squamous epithelial cells detection in u rine sediment by light microscopy 2-5 NRG Crystals detection in urine sediment by light microsco py NONE NRG Casts detection in urine sediment by light microscopy NONE NRG Mucus detection in urine sediment by light microscopy NEGATIVE NRG Complete urinalysis with reflex to culture YES NRG Bacterial urine culture - 11/16/18 17:25 Bacterial urine culture [id number] NRG COLONY COUNT >100,000/ML NRG FTX;REPORTABLE ID/SUSCEPTIBILITY REPORTED 11/19/18 9:05 NRG Dirithromycin susceptibility test by dis k diffusion - 11/16/18 17:25 Gentamicin susceptibility test by minimum inhibitory c oncentration <= NRG Trimethoprim/sulfamethoxazole susceptibi lity test by minimum inhibitoryconcentration <= NRG Levofloxacin susceptibility test by minimum inhibitory concentration <= NRG Ampicillin susceptibility test by minimum inhibitory c oncentration > NRG Cefazolin susceptibility test by minimum inhibitory co ncentration 2 NRG Ceftriaxone susceptibility test by minimum inhibitory concentration <= NRG Ciprofloxacin susceptibility test by minimum inhibitor y concentration <= NRG Meropenem susceptibility test by minimum inhibitory co ncentration <= NRG Nitrofurantoin susceptibility test by mi nimum inhibitory concentration <= NRG Amoxicillin and clavulanate potassium susc RAKESH = NRG Complete blood count (CBC) with automate d white blood cell (WBC) differential - 11/16/18 17:45 Blood leukocytes automated count (number/volume) 11.0 10*3/uL 4.3-11.0 Blood erythrocytes automated count (number/volume) 4.51 10*6/uL 4.35-5.85 Venous blood hemoglobin measurement (mass/volume) 13.6 g/dL 11.5-16.0 Blood hematocrit (volume fraction) 41 % 35-52 Automated erythrocyte mean corpuscular volume 91 [ foz_us] 80-99 Automated erythrocyte mean corpuscular h emoglobin (mass per erythrocyte) 30 pg 25-34 Automated erythrocyte mean corpuscular h emoglobin concentration measurement (mass/volume) 33 g/dL 32-36 Automated erythrocyte distribution width ratio 12. 6 % 10.0- 14.5 Automated blood platelet count (count/volume) 238 10*3/uL 130-400 Automated blood platelet mean volume measurement 10.3 [foz_us] 7.4-10.4 Automated blood neutrophils/100 leukocytes 80 % 42-75 Automated blood lymphocytes/100 leukocytes 11 % 12-44 Blood monocytes/100 leukocytes 7 % 0-12 Automated blood eosinophils/100 leukocytes 2 % 0-10 Automated blood basophils/100 leukocytes 1 % 0-10 Blood neutrophils automated count (number/volume) 8.7 10*3 1.8-7.8 Blood lymphocytes automated count (number/volume) 1.2 10*3 1.0-4.0 Blood monocytes automated count (number/volume) 0. 8 10*3 0.0-1.0 Automated eosinophil count 0.2 10*3/uL 0 .0-0.3 Automated blood basophil count (count/volume) 0.1 10*3/uL 0.0-0.1 Comprehensive metabolic panel - 11/16/18 17:45 Serum or plasma sodium measurement (moles/volume) 136 mmol/L 135-145 Serum or plasma potassium measurement (moles/volume) 3.8 mmol/L 3.6-5.0 Serum or plasma chloride measurement (moles/volume) 99 mmol/L 98-107 Carbon dioxide 22 mmol/L 21-32 Serum or plasma anion gap determination (moles/volume) 15 mmol/L 5-14 Serum or plasma urea nitrogen measurement (mass/volume ) 5 mg/dL 7-18 Serum or plasma creatinine measurement (mass/volume) 0.69 mg/dL 0.60-1.30 Serum or plasma urea nitrogen/creatinine mass ratio 7 NRG Serum or plasma creatinine measurement w ith calculation of estimated glomerular filtration rate > NRG Serum or plasma glucose measurement (mass/volume) 88 mg/dL 70-105 Serum or plasma calcium measurement (mass/volume) 9.1 mg/dL 8.5-10.1 Serum or plasma total bilirubin measurement (mass/volu me) 0.5 mg/dL 0.1-1.0 Serum or plasma alkaline phosphatase juanis surement (enzymatic activity/volume) 50 U/L 40-136 Serum or plasma aspartate aminotransfera se measurement (enzymatic activity/volume) 14 U/L 5-34 Serum or plasma alanine aminotransferase measurement (enzymatic activity/volume) 10 U/L 0-55 Serum or plasma protein measurement (mass/volume) 7.1 g/dL 6.4-8.2 Serum or plasma albumin measurement (mass/volume) 4.3 g/dL 3.2-4.5 CALCIUM CORRECTED 8.9 mg/dL 8.5-10.1 Magnesium - 11/16/18 17:45 Magnesium 1.9 mg/dL 1.8-2.4 Lipase - 11/16/18 17:45 Lipase 69 U/L 8-78 Serum or plasma choriogonadotropin measu rement (units/volume) - 11/16/18 17:45 Serum or plasma choriogonadotropin measurement (units/ volume) 22060 m[iU]/mL <5 Complete blood count (CBC) with automate d white blood cell (WBC) differential - 11/17/18 18:14 Blood leukocytes automated count (number/volume) 8.4 10*3/uL 4.3-11.0 Blood erythrocytes automated count (number/volume) 4.30 10*6/uL 4.35-5.85 Venous blood hemoglobin measurement (mass/volume) 13.2 g/dL 11.5-16.0 Blood hematocrit (volume fraction) 39 % 35-52 Automated erythrocyte mean corpuscular volume 91 [ foz_us] 80-99 Automated erythrocyte mean corpuscular h emoglobin (mass per erythrocyte) 31 pg 25-34 Automated erythrocyte mean corpuscular h emoglobin concentration measurement (mass/volume) 34 g/dL 32-36 Automated erythrocyte distribution width ratio 12. 9 % 10.0- 14.5 Automated blood platelet count (count/volume) 217 10*3/uL 130-400 Automated blood platelet mean volume measurement 10.4 [foz_us] 7.4-10.4 Automated blood neutrophils/100 leukocytes 67 % 42-75 Automated blood lymphocytes/100 leukocytes 18 % 12-44 Blood monocytes/100 leukocytes 10 % 0-12 Automated blood eosinophils/100 leukocytes 5 % 0-10 Automated blood basophils/100 leukocytes 0 % 0-10 Blood neutrophils automated count (number/volume) 5.6 10*3 1.8-7.8 Blood lymphocytes automated count (number/volume) 1.5 10*3 1.0-4.0 Blood monocytes automated count (number/volume) 0. 9 10*3 0.0-1.0 Automated eosinophil count 0.4 10*3/uL 0 .0-0.3 Automated blood basophil count (count/volume) 0.0 10*3/uL 0.0-0.1 Comprehensive metabolic panel - 11/17/18 18:14 Serum or plasma sodium measurement (moles/volume) 138 mmol/L 135-145 Serum or plasma potassium measurement (moles/volume) 3.7 mmol/L 3.6-5.0 Serum or plasma chloride measurement (moles/volume) 106 mmol/L 98-107 Carbon dioxide 22 mmol/L 21-32 Serum or plasma anion gap determination (moles/volume) 10 mmol/L 5-14 Serum or plasma urea nitrogen measurement (mass/volume ) 3 mg/dL 7-18 Serum or plasma creatinine measurement (mass/volume) 0.66 mg/dL 0.60-1.30 Serum or plasma urea nitrogen/creatinine mass ratio 5 NRG Serum or plasma creatinine measurement w ith calculation of estimated glomerular filtration rate > NRG Serum or plasma glucose measurement (mass/volume) 82 mg/dL 70-105 Serum or plasma calcium measurement (mass/volume) 8.8 mg/dL 8.5-10.1 Serum or plasma total bilirubin measurement (mass/volu me) 0.3 mg/dL 0.1-1.0 Serum or plasma alkaline phosphatase juanis surement (enzymatic activity/volume) 39 U/L 40-136 Serum or plasma aspartate aminotransfera se measurement (enzymatic activity/volume) 12 U/L 5-34 Serum or plasma alanine aminotransferase measurement (enzymatic activity/volume) 10 U/L 0-55 Serum or plasma protein measurement (mass/volume) 6.3 g/dL 6.4-8.2 Serum or plasma albumin measurement (mass/volume) 3.9 g/dL 3.2-4.5 CALCIUM CORRECTED 8.9 mg/dL 8.5-10.1 Magnesium - 11/17/18 18:14 Magnesium 1.8 mg/dL 1.8-2.4 Lipase - 11/17/18 18:14 Lipase 43 U/L 8-78 Serum or plasma choriogonadotropin measu rement (units/volume) - 11/17/18 18:14 Serum or plasma choriogonadotropin measurement (units/ volume) 13856 m[iU]/mL <5 Erythrocyte sedimentation rate by kel gren method - 11/17/18 18:14 Erythrocyte sedimentation rate by westergren method 7 mm 0- 20 Serum or plasma C reactive protein measu rement (mass/volume) - 11/17/18 18:14 Serum or plasma C reactive protein measurement (mass/v olume) 3.36 mg/dL 0.00-0.50 [id number] - 11/17/18 18:22 Stool leukocytes detection by light micr oscopy - 11/17/18 20:11 FECAL WBC RESULTS NO WBC'S OBSERVED ON DIRECT SMEA R NRG FECAL NOTE FECAL LEUKOCYTES MAY BE INTE RMITTENTLY PRESENT OR NRG FECAL NOTE UNEVENLY DISTRIBUTED IN STOO L SPECIMENS, AND WBC NRG FECAL NOTE MORPHOLOGY DEGRADES DURING TRANSPORT NRG FECAL NOTE NOTE: NRG Stool bacteria identification by culture - 11/17/18 20:11 Complete blood count (CBC) with automate d white blood cell (WBC) differential - 11/18/18 06:10 Blood leukocytes automated count (number/volume) 7.6 10*3/uL 4.3-11.0 Blood erythrocytes automated count (number/volume) 4.18 10*6/uL 4.35-5.85 Venous blood hemoglobin measurement (mass/volume) 12.5 g/dL 11.5-16.0 Blood hematocrit (volume fraction) 38 % 35-52 Automated erythrocyte mean corpuscular volume 91 [ foz_us] 80-99 Automated erythrocyte mean corpuscular h emoglobin (mass per erythrocyte) 30 pg 25-34 Automated erythrocyte mean corpuscular h emoglobin concentration measurement (mass/volume) 33 g/dL 32-36 Automated erythrocyte distribution width ratio 13. 0 % 10.0- 14.5 Automated blood platelet count (count/volume) 203 10*3/uL 130-400 Automated blood platelet mean volume measurement 10.7 [foz_us] 7.4-10.4 Automated blood neutrophils/100 leukocytes 59 % 42-75 Automated blood lymphocytes/100 leukocytes 22 % 12-44 Blood monocytes/100 leukocytes 11 % 0-12 Automated blood eosinophils/100 leukocytes 7 % 0-10 Automated blood basophils/100 leukocytes 1 % 0-10 Blood neutrophils automated count (number/volume) 4.5 10*3 1.8-7.8 Blood lymphocytes automated count (number/volume) 1.7 10*3 1.0-4.0 Blood monocytes automated count (number/volume) 0. 8 10*3 0.0-1.0 Automated eosinophil count 0.5 10*3/uL 0 .0-0.3 Automated blood basophil count (count/volume) 0.0 10*3/uL 0.0-0.1 Comprehensive metabolic panel - 11/18/18 06:10 Serum or plasma sodium measurement (moles/volume) 137 mmol/L 135-145 Serum or plasma potassium measurement (moles/volume) 3.6 mmol/L 3.6-5.0 Serum or plasma chloride measurement (moles/volume) 108 mmol/L 98-107 Carbon dioxide 21 mmol/L 21-32 Serum or plasma anion gap determination (moles/volume) 8 mmol/L 5-14 Serum or plasma urea nitrogen measurement (mass/volume ) 2 mg/dL 7-18 Serum or plasma creatinine measurement (mass/volume) 0.66 mg/dL 0.60-1.30 Serum or plasma urea nitrogen/creatinine mass ratio 3 NRG Serum or plasma creatinine measurement w ith calculation of estimated glomerular filtration rate > NRG Serum or plasma glucose measurement (mass/volume) 107 mg/dL 70-105 Serum or plasma calcium measurement (mass/volume) 8.4 mg/dL 8.5-10.1 Serum or plasma total bilirubin measurement (mass/volu me) 0.2 mg/dL 0.1-1.0 Serum or plasma alkaline phosphatase juanis surement (enzymatic activity/volume) 42 U/L 40-136 Serum or plasma aspartate aminotransfera se measurement (enzymatic activity/volume) 12 U/L 5-34 Serum or plasma alanine aminotransferase measurement (enzymatic activity/volume) 10 U/L 0-55 Serum or plasma protein measurement (mass/volume) 5.9 g/dL 6.4-8.2 Serum or plasma albumin measurement (mass/volume) 3.7 g/dL 3.2-4.5 CALCIUM CORRECTED 8.6 mg/dL 8.5-10.1 Automated blood complete blood count (he mogram) panel - 11/19/18 05:10 Blood leukocytes automated count (number/volume) 6.3 10*3/uL 4.3-11.0 Blood erythrocytes automated count (number/volume) 3.70 10*6/uL 4.35-5.85 Venous blood hemoglobin measurement (mass/volume) 11.3 g/dL 11.5-16.0 Blood hematocrit (volume fraction) 34 % 35-52 Automated erythrocyte mean corpuscular volume 93 [ foz_us] 80-99 Automated erythrocyte mean corpuscular h emoglobin (mass per erythrocyte) 31 pg 25-34 Automated erythrocyte mean corpuscular h emoglobin concentration measurement (mass/volume) 33 g/dL 32-36 Automated erythrocyte distribution width ratio 12. 9 % 10.0- 14.5 Automated blood platelet count (count/volume) 179 10*3/uL 130-400 Automated blood platelet mean volume measurement 10.6 [foz_us] 7.4-10.4 Whole blood basic metabolic panel - 10/25 12/11 05:10 Serum or plasma sodium measurement (moles/volume) 136 mmol/L 135-145 Serum or plasma potassium measurement (moles/volume) 3.7 mmol/L 3.6-5.0 Serum or plasma chloride measurement (moles/volume) 108 mmol/L 98-107 Carbon dioxide 22 mmol/L 21-32 Serum or plasma anion gap determination (moles/volume) 6 mmol/L 5-14 Serum or plasma urea nitrogen measurement (mass/volume ) < mg/dL 7-18 Serum or plasma creatinine measurement (mass/volume) 0.64 mg/dL 0.60-1.30 Serum or plasma urea nitrogen/creatinine mass ratio 3 NRG Serum or plasma creatinine measurement w ith calculation of estimated glomerular filtration rate > NRG Serum or plasma glucose measurement (mass/volume) 104 mg/dL 70-105 Serum or plasma calcium measurement (mass/volume) 8.1 mg/dL 8.5-10.1 Complete blood count (CBC) with automate d white blood cell (WBC) differential - 11/20/18 05:43 Blood leukocytes automated count (number/volume) 5.3 10*3/uL 4.3-11.0 Blood erythrocytes automated count (number/volume) 3.99 10*6/uL 4.35-5.85 Venous blood hemoglobin measurement (mass/volume) 12.0 g/dL 11.5-16.0 Blood hematocrit (volume fraction) 36 % 35-52 Automated erythrocyte mean corpuscular volume 91 [ foz_us] 80-99 Automated erythrocyte mean corpuscular h emoglobin (mass per erythrocyte) 30 pg 25-34 Automated erythrocyte mean corpuscular h emoglobin concentration measurement (mass/volume) 33 g/dL 32-36 Automated erythrocyte distribution width ratio 12. 9 % 10.0- 14.5 Automated blood platelet count (count/volume) 207 10*3/uL 130-400 Automated blood platelet mean volume measurement 11.1 [foz_us] 7.4-10.4 Automated blood neutrophils/100 leukocytes 54 % 42-75 Automated blood lymphocytes/100 leukocytes 24 % 12-44 Blood monocytes/100 leukocytes 13 % 0-12 Automated blood eosinophils/100 leukocytes 9 % 0-10 Automated blood basophils/100 leukocytes 0 % 0-10 Blood neutrophils automated count (number/volume) 2.9 10*3 1.8-7.8 Blood lymphocytes automated count (number/volume) 1.3 10*3 1.0-4.0 Blood monocytes automated count (number/volume) 0. 7 10*3 0.0-1.0 Automated eosinophil count 0.5 10*3/uL 0 .0-0.3 Automated blood basophil count (count/volume) 0.0 10*3/uL 0.0-0.1 Whole blood basic metabolic panel - 10/25 01/11 05:43 Serum or plasma sodium measurement (moles/volume) 135 mmol/L 135-145 Serum or plasma potassium measurement (moles/volume) 3.7 mmol/L 3.6-5.0 Serum or plasma chloride measurement (moles/volume) 105 mmol/L 98-107 Carbon dioxide 21 mmol/L 21-32 Serum or plasma anion gap determination (moles/volume) 9 mmol/L 5-14 Serum or plasma urea nitrogen measurement (mass/volume ) < mg/dL 7-18 Serum or plasma creatinine measurement (mass/volume) 0.61 mg/dL 0.60-1.30 Serum or plasma urea nitrogen/creatinine mass ratio 3 NRG Serum or plasma creatinine measurement w ith calculation of estimated glomerular filtration rate > NRG Serum or plasma glucose measurement (mass/volume) 92 mg/dL 70-105 Serum or plasma calcium measurement (mass/volume) 8.4 mg/dL 8.5-10.1 Bacterial urine culture - 03/29/19 09:51 Bacterial urine culture NG NRG Complete urinalysis with reflex to cultu re - 03/29/19 09:57 Urine color determination YELLOW NRG Urine clarity determination CLEAR NR G Urine pH measurement by test strip 7 5-9 Specific gravity of urine by test strip 1.010 1.016-1.022 Urine protein assay by test strip, semi-quantitative NEGATIVE NEGATIVE Urine glucose detection by automated test strip NE GATIVE NEGATIVE Erythrocytes detection in urine sediment by light micr oscopy 1+ NEGATIVE Urine ketones detection by automated test strip NE GATIVE NEGATIVE Urine nitrite detection by test strip NEGATIVE NEGATIVE Urine total bilirubin detection by test strip NEGA TIVE NEGATIVE Urine urobilinogen measurement by automated test strip (mass/volume) NORMAL NORMAL Urine leukocyte esterase detection by dipstick 2+ NEGATIVE Automated urine sediment erythrocyte cou nt by microscopy (number/high power field) [HPF] NRG Automated urine sediment leukocyte count by microscopy (number/high power field) [HPF] NRG Bacteria detection in urine sediment by light microsco py FEW NRG Squamous epithelial cells detection in u rine sediment by light microscopy 5-10 NRG Crystals detection in urine sediment by light microsco py NONE NRG Casts detection in urine sediment by light microscopy NONE NRG Mucus detection in urine sediment by light microscopy NEGATIVE NRG Complete urinalysis with reflex to culture CULTURE PENDING NRG Stool bacteria identification by culture - 04/12/19 08:00 Bacterial urine culture - 04/15/19 16:13 Bacterial urine culture NG NRG Methicillin resistant Staphylococcus aur eus (MRSA) screening culture - 06/24/19 14:31 Methicillin resistant Staphylococcus aureus (MRSA) scr eening culture NEG NRG Complete urinalysis with reflex to cultu re - 06/25/19 05:40 Urine color determination YELLOW NRG Urine clarity determination CLEAR NR G Urine pH measurement by test strip 7.0 5-9 Specific gravity of urine by test strip 1.015 1.016-1.022 Urine protein assay by test strip, semi-quantitative NEGATIVE NEGATIVE Urine glucose detection by automated test strip NE GATIVE NEGATIVE Erythrocytes detection in urine sediment by light micr oscopy NEGATIVE NEGATIVE Urine ketones detection by automated test strip NE GATIVE NEGATIVE Urine nitrite detection by test strip NEGATIVE NEGATIVE Urine total bilirubin detection by test strip NEGA TIVE NEGATIVE Urine urobilinogen measurement by automated test strip (mass/volume) 0.2 mg/dL < = 1.0 Urine leukocyte esterase detection by dipstick 1+ NEGATIVE Automated urine sediment erythrocyte cou nt by microscopy (number/high power field) NONE NRG Automated urine sediment leukocyte count by microscopy (number/high power field) [HPF] NRG Bacteria detection in urine sediment by light microsco py FEW NRG Squamous epithelial cells detection in u rine sediment by light microscopy 5-10 NRG Crystals detection in urine sediment by light microsco py NONE NRG Casts detection in urine sediment by light microscopy NONE NRG Mucus detection in urine sediment by light microscopy NEGATIVE NRG Complete urinalysis with reflex to culture YES NRG Bacterial urine culture - 06/25/19 05:40 Bacterial urine culture [id number] NRG COLONY COUNT . NRG FTX;REPORTABLE NO SUSCEPTIBILITIES SET UP NRG Complete blood count (CBC) with automate d white blood cell (WBC) differential - 06/25/19 06:15 Blood leukocytes automated count (number/volume) 11.6 10*3/uL 4.3-11.0 Blood erythrocytes automated count (number/volume) 3.53 10*6/uL 4.35-5.85 Venous blood hemoglobin measurement (mass/volume) 9.1 g/dL 11.5-16.0 Blood hematocrit (volume fraction) 29 % 35-52 Automated erythrocyte mean corpuscular volume 81 [ foz_us] 80-99 Automated erythrocyte mean corpuscular h emoglobin (mass per erythrocyte) 26 pg 25-34 Automated erythrocyte mean corpuscular h emoglobin concentration measurement (mass/volume) 32 g/dL 32-36 Automated erythrocyte distribution width ratio 14. 4 % 10.0- 14.5 Automated blood platelet count (count/volume) 293 10*3/uL 130-400 Automated blood platelet mean volume measurement 10.1 [foz_us] 7.4-10.4 Automated blood neutrophils/100 leukocytes 77 % 42-75 Automated blood lymphocytes/100 leukocytes 13 % 12-44 Blood monocytes/100 leukocytes 8 % 0-12 Automated blood eosinophils/100 leukocytes 1 % 0-10 Automated blood basophils/100 leukocytes 0 % 0-10 Blood neutrophils automated count (number/volume) 9.0 10*3 1.8-7.8 Blood lymphocytes automated count (number/volume) 1.5 10*3 1.0-4.0 Blood monocytes automated count (number/volume) 1. 0 10*3 0.0-1.0 Automated eosinophil count 0.1 10*3/uL 0 .0-0.3 Automated blood basophil count (count/volume) 0.0 10*3/uL 0.0-0.1 Blood type T Indirect antibody screen [facility] - 06/25/19 06:15 WRISTBAND NUMBER [id number] NRG ABO+Rh group AP NRG Blood group antibody screen NEGATIVE NR G Complete blood count (CBC) with automate d white blood cell (WBC) differential - 06/26/19 06:05 Blood leukocytes automated count (number/volume) 10.2 10*3/uL 4.3-11.0 Blood erythrocytes automated count (number/volume) 2.98 10*6/uL 4.35-5.85 Venous blood hemoglobin measurement (mass/volume) 7.7 g/dL 11.5-16.0 Blood hematocrit (volume fraction) 25 % 35-52 Automated erythrocyte mean corpuscular volume 83 [ foz_us] 80-99 Automated erythrocyte mean corpuscular h emoglobin (mass per erythrocyte) 26 pg 25-34 Automated erythrocyte mean corpuscular h emoglobin concentration measurement (mass/volume) 31 g/dL 32-36 Automated erythrocyte distribution width ratio 14. 3 % 10.0- 14.5 Automated blood platelet count (count/volume) 240 10*3/uL 130-400 Automated blood platelet mean volume measurement 10.5 [foz_us] 7.4-10.4 Automated blood neutrophils/100 leukocytes 77 % 42-75 Automated blood lymphocytes/100 leukocytes 13 % 12-44 Blood monocytes/100 leukocytes 9 % 0-12 Automated blood eosinophils/100 leukocytes 1 % 0-10 Automated blood basophils/100 leukocytes 0 % 0-10 Blood neutrophils automated count (number/volume) 7.8 10*3 1.8-7.8 Blood lymphocytes automated count (number/volume) 1.4 10*3 1.0-4.0 Blood monocytes automated count (number/volume) 0. 9 10*3 0.0-1.0 Automated eosinophil count 0.1 10*3/uL 0 .0-0.3 Automated blood basophil count (count/volume) 0.0 10*3/uL 0.0-0.1 Complete blood count (CBC) with automate d white blood cell (WBC) differential - 06/27/19 05:06 Blood leukocytes automated count (number/volume) 8.7 10*3/uL 4.3-11.0 Blood erythrocytes automated count (number/volume) 3.00 10*6/uL 4.35-5.85 Venous blood hemoglobin measurement (mass/volume) 7.7 g/dL 11.5-16.0 Blood hematocrit (volume fraction) 25 % 35-52 Automated erythrocyte mean corpuscular volume 83 [ foz_us] 80-99 Automated erythrocyte mean corpuscular h emoglobin (mass per erythrocyte) 26 pg 25-34 Automated erythrocyte mean corpuscular h emoglobin concentration measurement (mass/volume) 31 g/dL 32-36 Automated erythrocyte distribution width ratio 14. 5 % 10.0- 14.5 Automated blood platelet count (count/volume) 260 10*3/uL 130-400 Automated blood platelet mean volume measurement 9.3 [foz_us] 7.4-10.4 Automated blood neutrophils/100 leukocytes 68 % 42-75 Automated blood lymphocytes/100 leukocytes 19 % 12-44 Blood monocytes/100 leukocytes 9 % 0-12 Automated blood eosinophils/100 leukocytes 3 % 0-10 Automated blood basophils/100 leukocytes 0 % 0-10 Blood neutrophils automated count (number/volume) 5.9 10*3 1.8-7.8 Blood lymphocytes automated count (number/volume) 1.7 10*3 1.0-4.0 Blood monocytes automated count (number/volume) 0. 8 10*3 0.0-1.0 Automated eosinophil count 0.3 10*3/uL 0 .0-0.3 Automated blood basophil count (count/volume) 0.0 10*3/uL 0.0-0.1 Complete blood count (CBC) with automate d white blood cell (WBC) differential - 07/19/19 08:59 Blood leukocytes automated count (number/volume) 9.7 10*3/uL 4.3-11.0 Blood erythrocytes automated count (number/volume) 4.80 10*6/uL 4.35-5.85 Venous blood hemoglobin measurement (mass/volume) 12.8 g/dL 11.5-16.0 Blood hematocrit (volume fraction) 41 % 35-52 Automated erythrocyte mean corpuscular volume 85 [ foz_us] 80-99 Automated erythrocyte mean corpuscular h emoglobin (mass per erythrocyte) 27 pg 25-34 Automated erythrocyte mean corpuscular h emoglobin concentration measurement (mass/volume) 31 g/dL 32-36 Automated erythrocyte distribution width ratio 18. 3 % 10.0- 14.5 Automated blood platelet count (count/volume) 376 10*3/uL 130-400 Automated blood platelet mean volume measurement 10.4 [foz_us] 7.4-10.4 Automated blood neutrophils/100 leukocytes 62 % 42-75 Automated blood lymphocytes/100 leukocytes 18 % 12-44 Blood monocytes/100 leukocytes 11 % 0-12 Automated blood eosinophils/100 leukocytes 8 % 0-10 Automated blood basophils/100 leukocytes 1 % 0-10 Blood neutrophils automated count (number/volume) 6.0 10*3 1.8-7.8 Blood lymphocytes automated count (number/volume) 1.7 10*3 1.0-4.0 Blood monocytes automated count (number/volume) 1. 1 10*3 0.0-1.0 Automated eosinophil count 0.7 10*3/uL 0 .0-0.3 Automated blood basophil count (count/volume) 0.1 10*3/uL 0.0-0.1 Manual absolute plasma cell count - 06/27 09/12 08:59 Blood monocytes/100 leukocytes 17 % NRG Manual blood segmented neutrophils/100 leukocytes 26 % NRG Blood band neutrophils/100 leukocytes 27 % NRG Manual blood lymphocytes/100 leukocytes 17 % NRG Manual eosinophils/100 leukocytes in nose 8 % NRG Manual blood basophils/100 leukocytes 2 % NRG Manual blood lymphocytes variant/100 leukocytes 1 % NR Blood erythrocyte morphology finding identification NORMAL NRG Manual blood metamyelocytes/100 leukocytes 1 % NRG Manual blood myelocytes/100 leukocytes 1 % NR Comprehensive metabolic panel - 07/19/19 08:59 Serum or plasma sodium measurement (moles/volume) 139 mmol/L 135-145 Serum or plasma potassium measurement (moles/volume) 3.7 mmol/L 3.6-5.0 Serum or plasma chloride measurement (moles/volume) 100 mmol/L 98-107 Carbon dioxide 22 mmol/L 21-32 Serum or plasma anion gap determination (moles/volume) 17 mmol/L 5-14 Serum or plasma urea nitrogen measurement (mass/volume ) 4 mg/dL 7-18 Serum or plasma creatinine measurement (mass/volume) 0.68 mg/dL 0.60-1.30 Serum or plasma urea nitrogen/creatinine mass ratio 6 NRG Serum or plasma creatinine measurement w ith calculation of estimated glomerular filtration rate > NRG Serum or plasma glucose measurement (mass/volume) 86 mg/dL 70-105 Serum or plasma calcium measurement (mass/volume) 9.3 mg/dL 8.5-10.1 Serum or plasma total bilirubin measurement (mass/volu me) 0.2 mg/dL 0.1-1.0 Serum or plasma alkaline phosphatase juanis surement (enzymatic activity/volume) 86 U/L 40-136 Serum or plasma aspartate aminotransfera se measurement (enzymatic activity/volume) 14 U/L 5-34 Serum or plasma alanine aminotransferase measurement (enzymatic activity/volume) 8 U/L 0-55 Serum or plasma protein measurement (mass/volume) 6.9 g/dL 6.4-8.2 Serum or plasma albumin measurement (mass/volume) 4.3 g/dL 3.2-4.5 CALCIUM CORRECTED 9.1 mg/dL 8.5-10.1 Lipase - 07/19/19 08:59 Lipase 7 U/L 8-78 Complete urinalysis with reflex to cultu re - 07/19/19 09:02 Urine color determination YELLOW NRG Urine clarity determination CLOUDY NR G Urine pH measurement by test strip 5.5 5-9 Specific gravity of urine by test strip 1.025 1.016-1.022 Urine protein assay by test strip, semi-quantitative NEGATIVE NEGATIVE Urine glucose detection by automated test strip NE GATIVE NEGATIVE Erythrocytes detection in urine sediment by light micr oscopy 2+ NEGATIVE Urine ketones detection by automated test strip 2+ NEGATIVE Urine nitrite detection by test strip NEGATIVE NEGATIVE Urine total bilirubin detection by test strip 1+ NEGATIVE Urine urobilinogen measurement by automated test strip (mass/volume) 0.2 mg/dL < = 1.0 Urine leukocyte esterase detection by dipstick 1+ NEGATIVE Automated urine sediment erythrocyte cou nt by microscopy (number/high power field) [HPF] NRG Automated urine sediment leukocyte count by microscopy (number/high power field) [HPF] NRG Bacteria detection in urine sediment by light microsco py LARGE NRG Squamous epithelial cells detection in u rine sediment by light microscopy >50 NRG Crystals detection in urine sediment by light microsco py NONE NRG Casts detection in urine sediment by light microscopy NONE NRG Mucus detection in urine sediment by light microscopy NEGATIVE NRG Complete urinalysis with reflex to culture YES NRG Bacterial urine culture - 07/19/19 09:02 Bacterial urine culture 3 OR MORE NRG COLONY COUNT >100,000/ML NRG FTX;REPORTABLE GRAM POSITIVES, SUGGESTING PROBABLE NRG FREE TEXT ENTRY 2 COLLECTION CONTAMINATION WITH SK IN [place] NRG FREE TEXT ENTRY 3 NO SUSCEPTIBILITY PERFORMED NRG Stool leukocytes detection by light micr oscopy - 07/19/19 09:12 FECAL WBC RESULTS MODERATE # WBC'S OBSERVED ON DIRECT SMEAR NRG FECAL NOTE FECAL LEUKOCYTES MAY BE INTE RMITTENTLY PRESENT OR NRG FECAL NOTE UNEVENLY DISTRIBUTED IN STOO L SPECIMENS, AND WBC NRG FECAL NOTE MORPHOLOGY DEGRADES DURING TRANSPORT NRG FECAL NOTE NOTE: NRG C DIFFICILE AG + TOXIN A/B. - 07/19/19 0 9:12 RESULTS NEGATIVE FOR ANTIGEN AND TOXIN A/B NRG [id number] - 07/19/19 09:12 Stool bacteria identification by culture - 07/19/19 09:12 COVID-19 ([facility]) - 08/24/19 11:40 PATIENT SYMPTOMATIC? NOT GIVEN NRG SOURCE: NOT GIVEN NRG OVERALL RESULT: NOT DETECTED NOT DETE CTED SARS-CoV-2 RNA: NEGATIVE NEGATIVE WOOD-SARS RNA: NEGATIVE NEGATIVE Coronavirus SARS-CoV-2 SO 2018 0 08:20 Coronavirus Ab [Units/volume] in Serum Negative Negative Encounters ACCT No. Visit Date/Time Discharge Status Pt. Type Provider Facility Loc./Unit Complaint [id number] 07/29/2019 08:00:00 07/29/2019 23:59: 59 CLS Outpatient SIRI RUIZ LAC [facility] [id number] 08/24/2019 10:20:00 Document Registration [id number] 11/15/2019 10:34:00 23:59:59 CLS Outpatient ROBERTO VASQUEZ MD [facility] [address] PREOP COLONOSCOPY/EGD [id number] 07/19/2019 08:41:00 11:06:00 DIS Emergency JO-ANN WEBBER DO [facility] [address] ER FS ABD PAIN; BLOODY STOOL; VOMITING [id number] 06/25/2019 05:40:00 09:50:00 DIS Inpatient JAE OLSON DO [facility] [address] LDRP PREVIOUS [id number] 06/24/2019 14:12:00 14:38:00 DIS Outpatient JAE OLSON DO [facility] [address] PREOP PREVIOUS [id number] 06/14/2019 11:51:00 23:59:59 CLS Outpatient PAM MELÉNDEZ APRN [facility] [address] RAD [id number] 05/28/2019 14:31:00 23:59:59 CLS Outpatient JAE OLSON DO [facility] [address] RAD FETUS PRESENT DURING [place] EGNANCY IN THIRD TRIMESTER [id number] 04/21/2019 10:18:00 23:59:59 CLS Outpatient PAM MELÉNDEZ APRN [facility] [address] RAD [id number] 04/15/2019 16:08:00 23:59:59 CLS Outpatient PAM MELÉNDEZ APRN [facility] [address] LAB FS [id number] 04/12/2019 15:25:00 23:59:59 CLS Outpatient PAM MELÉNDEZ FIRE FIGHTER [facility] [address] LAB FS K92.1 R10.9 [id number] 03/29/2019 09:31:00 11:11:00 DIS Outpatient JAE OLSON DO [facility] [address] WSo VAGINAL BLEEDING [id number] 02/24/2019 10:11:00 23:59:59 CLS Outpatient JAE OLSON DO [facility] [address] RAD 18 WEEKS GESTATION [id number] 11/17/2018 21:02:00 13:35:00 DIS Inpatient KAROLINA KIMBLE, ALINE Shetty [facility] [address] 4TH R SIDED ABD PAIN,BLOODY DIARRHEA [id number] 11/16/2018 17:06:00 20:05:00 DIS Emergency JO-ANN WEBBER DO [facility] [address] ER FS ABD PAIN, BLOODT STOOLS , DIARRHEA, DIZZY [id number] 11/14/2018 11:37:00 23:59:59 CLS Outpatient JAE OLSON DO [facility] [address] LAB ENCOUNTER FOR OTHER SPE CIFIED SCREENING [id number] 08/13/2018 15:41:00 23:59:59 CLS Outpatient ZACH ALCAZAR [facility] [address] RAD FS LOWER ABD PAIN [id number] 08/05/2018 18:27:00 21:27:00 DIS Emergency RAKAN FRENCH DO [facility] [address] ER FS WEAK,LIGHT HEADED, ST P AIN, BLOODY STOOLS [id number] 05/08/2018 13:00:00 17:00:00 DIS Outpatient JAE OLSON DO [facility] [address] SDC MISSED AB [id number] 05/07/2018 12:40:00 12:55:00 DIS Outpatient JAE OLSON DO [facility] [address] PREOP MISSED AB [id number] 02/16/2018 13:45:00 018 19:55:00 DIS Outpatient JAE OLSON DO [facility] [address] SDC SPONTANEOUS [id number] 10/05/2013 09:08:00 014 12:00:00 DIS Inpatient [id number] 09/29/2013 09:33:00 014 23:59:59 CLS Outpatient [id number] 09/07/2013 15:20:00 014 08:07:00 DIS Inpatient BRYANNA GOVEA DO [facility] [address] WS CONTRACTIONS [id number] 09/06/2013 08:25:00 014 09:50:00 DIS Outpatient [id number] 09/01/2013 12:50:00 014 18:35:00 DIS Outpatient [id number] 04/15/2013 14:07:00 013 17:45:00 DIS Emergency [id number] 11/19/2019 12:00:00 P EN Preadmit ROBERTO VASQUEZ MD [facility] ENDO ABD PAIN/BLOOD IN STOOL/N V [id number] 11/16/2019 08:03:[address] Outpatient ROBERTO VASQUEZ MD [facility] LAB FS PRE SURG REQ
--- NOTE | 2019-11-19 11:28 | Discharge Inst-Surgical ---
D/C Lap Instructions-CHRISTINA Follow Up Activity as tolerated High Fiber Diet 25g or more per day Avoid Alcohol, Caffeine, Spicy [place] and Acid foods. Drink 64 fluid oz or more of fluids per day. Symptoms to Report: Fever over 101 degree F, Nausea/Vomiting If any problems/questions: Contact your physician or go to Emergency Room ROBERTO VASQUEZ MD Nov 19, 2019 11:28
[2019-11-19] MEDS ORDERED: HYDROcodone/APAP 5 MG/325 MG (LORTAB) TAB PO PRN (11:30)
[2019-11-19] MEDS ORDERED: morphine INJ 10 MG/ML 1ML (SYR OR VIAL) IVP PRN ×2 (11:30)
[2019-11-19] MEDS ORDERED: ONDANSETRON 4 MG/2 ML (SDV) Z0FRAN IVP PRN (11:30)
[2019-11-19] MEDS ORDERED: ACETAMINOPHEN 325 MG TABLET PO PRN (11:30)
[2019-11-19] MEDS ORDERED: NS IV 500 ML 500 ML IV PRN (11:37)
[2019-11-19] MEDS ORDERED: HURRICAINE EXT TUBE (BENZOCAINE) XX PRN (11:45)
[2019-11-19] MEDS ORDERED: fentaNYL INJECTION 100 MCG/2 ML AMP IVP ONE (11:45)
[2019-11-19] MEDS ORDERED: LIDOCAINE JELLY 2% 6 ML SYRINGE MM PRN (11:45)
[2019-11-19] MEDS ORDERED: LIDOCAINE JELLY 2% 6 ML SYRINGE ONE (12:24)
[2019-11-19] MEDS ORDERED: MIDAZOLAM 5 MG/5 ML (VERSED) VIAL ONE ×2 (12:24)
[2019-11-19] MEDS ORDERED: fentaNYL INJECTION 100 MCG/2 ML AMP ONE (12:24)
[2019-11-19] MEDS ORDERED: HURRICAINE EXT TUBE (BENZOCAINE) ONE (12:24)
[2019-11-19] MEDS: MIDAZOLAM 5 MG/5 ML (VERSED) VIAL IV PRN ×6 (12:26→12:35)
[2019-11-19] MEDS ORDERED: proPOfol 200 MG/20 ML (DIPRIVAN) VIAL IV ONE (12:49)
--- NOTE | 2019-11-19 13:26 | Progress Note-Post Operative ---
Post-Operative Progess Note Surgeon (s)/Avionics Systems Technician (s) Surgeon ROBERTO VASQUEZ MD Avionics Systems Technician: none Pre-Operative Diagnosis GERD, nausea, rectal bleed Post-Operative Diagnosis reflux esophagitis(stage 2), small HH(1.5cm), moderate gastritis. mild proctitis. Procedure & Operative Findings Date of Procedure 11/19/19 Procedure Performed/Findings EGD with bx. colonoscopy with bx. Anesthesia Type mac Estimated Blood Loss Estimated blood loss (mL): minimal Specimens/Packing Specimens Removed ge jxn, antrum ROBERTO VASQUEZ MD Nov 19, 2019 13:26
--- NOTE | 2019-11-19 14:04 | Anesthesia-General Post-Op ---
MAC Patient Condition Mental Status/LOC: Same as Preop Cardiovascular: Satisfactory Nausea/Vomiting: Absent Respiratory: Satisfactory Pain: Controlled Complications: Absent Post Op Complications Complications None Follow Up Care/Instructions Patient Instructions None needed. Anesthesiology Discharge Order Discharge Order Patient was seen after the procedure and she was doing well, no complaints, stable vital signs, no apparent adverse anesthesia problems. IVY WONG DO Nov 19, 2019 14:04
--- NOTE | 2019-11-19 22:50 | OPERATIVE REPORT ---
DATE OF SERVICE: 11/19/2019 ATTENDING PRIMARY CARE PHYSICIAN: Yoko Reyes APRN. PREOPERATIVE DIAGNOSES: Crampy abdominal pain, reflux, rectal bleeding. POSTOPERATIVE DIAGNOSES: Reflux esophagitis stage II, small hiatal hernia 1.5 cm in size, moderate gastritis and mild proctitis. PROCEDURE: EGD with biopsy, colonoscopy with biopsy. SURGEON: Roberto Vasquez MD. ANESTHESIA: Monitored anesthesia care. ESTIMATED BLOOD LOSS: Minimal. FINDINGS: Reflux esophagitis stage II, small hiatal hernia 1.5 cm in size, moderate gastritis and mild proctitis. DISPOSITION: The patient tolerated the procedure well. INDICATIONS: The patient is a 29-year-old female who we had seen in the hospital on 11/18/2018 for crampy abdominal pain and signs and symptoms of inflammatory bowel disease. At that time, she is a G5, P2 at 6 weeks and 5 days' gestation. During that timeframe of , she did develop right lower abdominal quadrant pain as well as mucus and blood within her stools. Since having her baby, she reports that she had done better; however, did have another recent flareup with bloody stools. During the flare up, she did have a CT scan, which did show inflammation of the colon. DESCRIPTION OF PROCEDURE: The patient was brought to the endoscopy suite, laid in the left lateral decubitus position. After adequate IV pain and sedative medications and monitored anesthesia care, the mouthpiece was applied. The endoscope was placed in the mouth, visualizing the pharynx and hypopharyngeal region. Vocal cords, epiglottis and vallecula identified and appeared to be normal. Endoscope was then gently intubated. Esophageal opening and esophagus insufflated. The endoscope was then advanced through the first, second and third portions of the esophagus at the level of the GE junction, a reflux esophagitis stage II identified. No ulcers or strictures identified in this region. A biopsy was taken using forceps with visualization of good hemostasis. The endoscope was then advanced in the stomach and endoscope retroflexed, visualizing a small hiatal hernia 1.5 cm in size. There was a mild to moderate gastritis towards the stomach antrum. No formal ulcerations, polyps, or any neoplasms. A biopsy was taken of the antrum to rule out H. pylori with visualization of good hemostasis. The endoscope was then advanced to the pylorus and the first and second portion of the duodenum, which appeared normal with no mucosal inflammatory changes. The endoscope was then slowly withdrawn while taking a second look and suctioning of residual air with no additional findings. Under the same anesthesia, we then proceeded with colonoscopy portion of procedure. A digital rectal examination was performed, which did not reveal any significant hemorrhoids. There were also no inflammatory changes or any fistulous tracts identified. Normal sphincter tone was felt and there were no palpable masses. The endoscope was then intubated and anus and rectum gently insufflated. The endoscope was then advanced to the valves of Rdz of the rectum where a mild proctitis identified. Biopsies were taken with forceps with visualization of good hemostasis. The endoscope was then advanced through the sigmoid colon where no diverticulosis identified. The endoscope was then advanced to the remainder of the descending, transverse and ascending colon to the cecum. These segments were normal. There were no other mucosal inflammatory changes. A biopsy was taken of the cecum with visualization of good hemostasis. The endoscope was then slowly withdrawn with taking a second look and suctioning of residual air with no additional findings. The patient tolerated the procedure well. We will await the biopsy results; however, for now have her proceed with a low residue diet and also avoid caffeinated beverages, spicy, greasy and acidic foods. We will also start her on Protonix 40 mg daily. Job ID: [id number] DocumentID: [id number] Dictated Date: 11/19/2019 13:16:10 Grid Trimmer Date: 11/19/2019 22:50:34 Dictated By: ROBERTO VASQUEZ MD
== END 2019-11-19 13:50 | disposition home or self-care (01) ==
LOC: ENDO 11:15
PROVIDERS: ATTEND Surgery
DX: K52.9 Noninfective gastroenteritis and colitis, unspecified (principal); K29.50 Unspecified chronic gastritis without bleeding; K21.0 Gastro-esophageal reflux disease with esophagitis; K44.9 Diaphragmatic hernia without obstruction or gangrene; K62.5 Hemorrhage of anus and rectum; K62.89 Other specified diseases of anus and rectum; J45.909 Unspecified asthma, uncomplicated; Z79.51 Long term (current) use of inhaled steroids; Z79.899 Other long term (current) drug therapy; Z87.19 Personal history of other diseases of the digestive system; Z80.0 Family history of malignant neoplasm of digestive organs; Z80.41 Family history of malignant neoplasm of ovary; Z82.49 Family history of ischemic heart disease and other diseases of the circulatory system
CPT/HCPCS: 88305

== ENCOUNTER → 2021-08-28 | Outpatient (CLI) | payer MEDICAID ==
[~2021-08-28] MED LIST changes: -CETI10TA21 PO; +CETI10TA49 PO; -CIPR500T4 PO; +CIPR500T5 PO; -DCS100C PO; +DICY20TA PO; -DICY20TA10 PO; +DOCU-239 PO; +PANT40TA2 PO
--- NOTE | 2021-08-28 14:26 | Diagnostic Imaging Report ---
INDICATION: Neck pain. TIME OF EXAM: 1:54 PM. FINDINGS: Three views of the cervical spine demonstrate straightening of the normal cervical lordotic curvature. The vertebral body heights and disc spaces are well-maintained. The prevertebral tissues are normal. The odontoid is intact. No fractures are seen. IMPRESSION: Straightening. No other significant abnormality is seen. Dictated by: Dictated on workstation # [id number]
== END ==
LOC: RAD FS 13:45
PROVIDERS: ATTEND Family Medicine
DX: M54.2 Cervicalgia (principal)
CPT/HCPCS: 72040